=== PATIENT | male | born 1970 | race Caucasian/White ===

== ENCOUNTER 2020-06-05 09:38 | Outpatient (REF) | payer BC, SELFPAY ==
[2020-06-05 11:26] LABS: Eosinophils Absolute Auto 0.2 X10*3/uL (0.0-0.4); Eosinophils Percent Auto 7.6 % (0-4); Hematocrit 42.2 % (42-52); Hemoglobin 13.2 g/dl (14.0-18.0); Imm Gran Abs Auto 0.01 X10*3/uL (0.00-0.03); Imm Gran Pct Auto 0.3 % (0.0-0.4); Lymphocytes Absolute Auto 0.5 X10*3/uL (1.2-4.9); Lymphocytes Percent Auto 17.2 % (20-40); MANUAL DIFF FLAG SCAN; Mean Corpuscular HGB Conc 31.3 g/dl (31.0-36.0); Mean Corpuscular Hemoglobin 25.8 pg (27.0-33.0); Mean Corpuscular Volume 82.4 fL (80-98); Mean Platelet Volume 10.1 fL (9.4-12.4); Monocytes Absolute Auto 0.1 X10*3/uL (0.1-1.2); Monocytes Percent Auto 2.4 % (2-11); Neutrophils Absolute Auto 2.1 X10*3/uL (2.0-8.3); Neutrophils Percent Auto 71.5 % (45-73); Platelet Count 239 X10*3/uL (160-400); Red Blood Count 5.12 X10*6/uL (4.60-5.80); Red Cell Distribution Width 15.5 % (11.0-16.0); SCAN SMEAR FLAG 1; White Blood Count 2.9 X10*3/uL (4.8-10.8)
[2020-06-05 11:34] LABS: Fibrinogen 328 MG/DL (259-690); Prothrombin Time 12.3 SEC (10.8-13.0)
[2020-06-05 11:37] LABS: Partial Thromboplastin Time 32.2 SEC (24.1-38.0)
[2020-06-05 12:17] LABS: Iron 79 mcg/dL (45-160); Percent Iron Saturation 21 % (15-50); Total Iron Binding Capacity 376 mcg/dL (228-428); Unsaturated Iron Binding 297 ug/dL
[2020-06-05 12:34] LABS: Ferritin 14 ng/mL (20-250)
[2020-06-05 12:36] LABS: SLIDE REVIEW VERIFIED
== END 2020-06-05 09:39 | disposition home or self-care (01) ==
LOC: HO.LAB 09:38
PROVIDERS: PCP Family Medicine; Visit Provider Physician Assistant Medical
DX: R79.0 Abnormal level of blood mineral (principal); T14.8XXA Other injury of unspecified body region, initial encounter
CPT/HCPCS: 36415; 82728; 83540; 85025; 85384; 85610; 85730

== ENCOUNTER 2020-07-05 07:33 | Outpatient (REF) | payer BC, SELFPAY ==
[2020-07-05 08:14] LABS: COVID-19 Test Negative (Negative)
== END 2020-07-05 07:34 | disposition home or self-care (01) ==
LOC: HO.LAB 07:33
PROVIDERS: Visit Provider Internal Medicine
DX: Z20.828 Contact with and (suspected) exposure to other viral communicable diseases (principal)
CPT/HCPCS: 87635; C9803

== ENCOUNTER 2020-07-08 07:27 | Outpatient (REF) | payer BC, SELFPAY ==
[2020-07-08 09:41] LABS: Basophils Percent Auto 1.1 % (0-2); Eosinophils Absolute Auto 0.2 X10*3/uL (0.0-0.4); Eosinophils Percent Auto 7.1 % (0-4); Hematocrit 45.1 % (42-52); Hemoglobin 14.4 g/dl (14.0-18.0); Imm Gran Abs Auto 0.02 X10*3/uL (0.00-0.03); Imm Gran Pct Auto 0.7 % (0.0-0.4); Lymphocytes Absolute Auto 0.5 X10*3/uL (1.2-4.9); Lymphocytes Percent Auto 18.1 % (20-40); MANUAL DIFF FLAG SCAN; Mean Corpuscular HGB Conc 31.9 g/dl (31.0-36.0); Mean Corpuscular Hemoglobin 26.5 pg (27.0-33.0); Mean Corpuscular Volume 82.9 fL (80-98); Mean Platelet Volume 9.7 fL (9.4-12.4); Monocytes Absolute Auto 0.1 X10*3/uL (0.1-1.2); Monocytes Percent Auto 1.8 % (2-11); Neutrophils Percent Auto 71.2 % (45-73); Platelet Count 268 X10*3/uL (160-400); Red Blood Count 5.44 X10*6/uL (4.60-5.80); Red Cell Distribution Width 16.1 % (11.0-16.0); SCAN SMEAR FLAG 1; White Blood Count 2.8 X10*3/uL (4.8-10.8)
[2020-07-08 10:16] LABS: SLIDE REVIEW VERIFIED
[2020-07-08 10:41] LABS: Folate 9.1 ng/mL (> or = 4.0); Vitamin B12 228 pg/mL (200-900)
[2020-07-09 15:32] LABS: Transglutaminase IgA 1 U/mL
[2020-07-09 16:17] LABS: LLE Markers 23
[2020-07-09 17:26] LABS: IgA 331 mg/dL (47-310); IgG 1812 mg/dL (600-1640); IgM 67 mg/dL (50-300)
[2020-07-10 15:03] LABS: LLE Report Type SEE ABOVE; LLE Sample Description SEE ABOVE
[2020-07-12 20:27] LABS: Methylmalonic Acid 170 nmol/L (87-318)
== END 2020-07-08 07:28 | disposition home or self-care (01) ==
LOC: HO.LAB 07:27
PROVIDERS: PCP Family Medicine; Visit Provider Physician Assistant Medical
DX: D72.810 Lymphocytopenia (principal)
CPT/HCPCS: 36415; 82607; 82746; 82784; 83516; 83921; 85025

== ENCOUNTER 2020-07-24 07:15 | Day surgery (SDC) | payer BC, SELFPAY ==
--- NOTE | 2020-07-23 09:46 | HO.ANESPROP2 ---
Documented by User: Anika White 07/23/20 10:03 HPI - Anesthesia Eval Consult details Narrative: 49yo M for Colonoscopy COUNTS INCLUDE 234 BEDS AT THE [facility] Past Medical History Medical History Anemia Asthma Atypical chest pain CAD (coronary artery disease) Concussion Elevated cholesterol Fracture of knee region GERD (gastroesophageal reflux disease) Hx of upper gastrointestinal hemorrhage Myocardial infarction Surgical History Surgical History History of esophagogastroduodenoscopy (EGD) Hx of heart artery stent Social History Social History Alcohol intake: current Alcohol intake frequency: a few times a week Alcohol type: beer Smoking Status: Never smoker Second Hand Smoke Exposure: No Use of substances other than those prescribed or required for medical reasons: No Advance Directives: No Advance Directives Information Provided: No Advance Directives on File: No Meds Allergies Allergy/AdvReac Type Severity Reaction Status Date / Time No Known Allergies Allergy Verified 07/16/20 14:36 shellfish Allergy Unknown Unknown Uncoded 07/16/20 14:36 Home Medications Medication Instructions Recorded Confirmed Type albuterol sulfate 2 puff INHALATION Q6H PRN 07/16/20 07/24/20 History aspirin [Aspir-Low] 81 mg PO DAILY 07/16/20 07/24/20 History atorvastatin 10 mg PO DAILY 07/16/20 07/16/20 History budesonide 3 mg PO DAILY 07/16/20 07/16/20 History ezetimibe 10 mg PO DAILY 07/16/20 07/16/20 History ferrous sulfate 325 mg PO DAILY 07/16/20 07/16/20 History fluticasone propion-salmeterol 1 inh INHALATION BID 07/16/20 07/24/20 History [Advair Diskus] ibuprofen [Advil] 200 mg PO Q6H PRN 07/16/20 07/16/20 History metoprolol succinate 25 mg PO DAILY 07/16/20 07/24/20 History nitroglycerin 0.3 mg SUBLINGUAL Q5M PRN 07/16/20 07/16/20 History omeprazole 20 mg PO BID 07/16/20 07/24/20 History Exam Exam Date and Time: July 23, 2020 0946 Pertinent Lab Results Pertinent Lab Results: Laboratory Tests 07/08/20 08:03 WBC 2.8 L Hgb 14.4 Hct 45.1 Plt Count 268 Narrative Narrative: EKG 08/2019: NSR with LBB with PAC ECHO 2018: Nml LV sys and diastolic function, paradox septal motion c/w LBBB, mild posterior mitral leaflet prolapse with mild MR, No pericardial effusion. Assessment and Plan Assessment Anesthesia Assessment: Chart Reviewed Documented by User: Reddy Kennedy 07/24/20 09:10 COUNTS INCLUDE 234 BEDS AT THE [facility] Past Medical History Medical History Anemia Asthma Atypical chest pain CAD (coronary artery disease) Concussion Elevated cholesterol Fracture of knee region GERD (gastroesophageal reflux disease) Hx of upper gastrointestinal hemorrhage Myocardial infarction Surgical History Surgical History History of esophagogastroduodenoscopy (EGD) Hx of heart artery stent Social History Social History Alcohol intake: current Alcohol intake frequency: a few times a week Alcohol type: beer Smoking Status: Never smoker Second Hand Smoke Exposure: No Use of substances other than those prescribed or required for medical reasons: No Advance Directives: No Advance Directives Information Provided: No Advance Directives on File: No Meds Allergies Allergy/AdvReac Type Severity Reaction Status Date / Time No Known Allergies Allergy Verified 07/16/20 14:36 shellfish Allergy Unknown Unknown Uncoded 07/16/20 14:36 Home Medications Medication Instructions Recorded Confirmed Type albuterol sulfate 2 puff INHALATION Q6H PRN 07/16/20 07/24/20 History aspirin [Aspir-Low] 81 mg PO DAILY 07/16/20 07/24/20 History atorvastatin 10 mg PO DAILY 07/16/20 07/16/20 History budesonide 3 mg PO DAILY 07/16/20 07/16/20 History ezetimibe 10 mg PO DAILY 07/16/20 07/16/20 History ferrous sulfate 325 mg PO DAILY 07/16/20 07/16/20 History fluticasone propion-salmeterol 1 inh INHALATION BID 07/16/20 07/24/20 History [Advair Diskus] ibuprofen [Advil] 200 mg PO Q6H PRN 07/16/20 07/16/20 History metoprolol succinate 25 mg PO DAILY 07/16/20 07/24/20 History nitroglycerin 0.3 mg SUBLINGUAL Q5M PRN 07/16/20 07/16/20 History omeprazole 20 mg PO BID 07/16/20 07/24/20 History Exam Airway Mallampati Class: II TM Dist: >3cm Neck ROM: Full Loose/Missing/Broken Teeth: No Heart: [id number] Lungs: cta b/l Assessment and Plan Assessment Anesthesia Assessment: Anesthesia Plan Discussed, PAT Visit and Chart Reviewed Final Anesthetic Review NPO: Yes ASA Class: III Final Preanesthetic Review: No Changes in Pt Med Stat, Meds/Allgs Chart Reviewed, Consent Obtained/Reviewed and Anes Risks/Benef Reviewed Patient Risk: Intermediate Procedure Risk: Low Assessment/Block/Sedation in SS: Assess/Block/Sedation-SS Anesthetic Plan Anesthetic Plan: MAC: Disposition: Standard PACU
[2020-07-23 10:09] VITALS: BMI 25.2
--- NOTE | 2020-07-24 | ECG_ITS ---
Test Reason : PREOP Blood Pressure : / mmHG Vent. Rate : 070 BPM Atrial Rate : 070 BPM P-R Int : 184 ms QRS Dur : 132 ms QT Int : 418 ms P-R-T Axes : 061 -26 063 degrees QTc Int : 451 ms Normal sinus rhythm Left bundle branch block Abnormal ECG When compared with ECG of 06-OCT-2016 09:14, No significant change was found Referred By: Reddy Kennedy Electronically Signed By:GENIA SWEET MD
[2020-07-24 07:51] VITALS: BP 127/85; PULSE 69; RESP 18; TEMP 36.9; O2SAT 98
[2020-07-24] MEDS: Lactated Ringers 1,000 ML 100 ML IVCONT (08:00)
--- NOTE | 2020-07-24 09:11 | ECG_ITS ---
Test Reason : S/P STENT, SD, CP Blood Pressure : / mmHG Vent. Rate : 067 BPM Atrial Rate : 067 BPM P-R Int : 182 ms QRS Dur : 136 ms QT Int : 446 ms P-R-T Axes : 052 -39 069 degrees QTc Int : 471 ms Normal sinus rhythm Left axis deviation Left bundle branch block Abnormal ECG When compared with ECG of 24-JUL-2020 07:48, No significant change was found Referred By: Reddy Kennedy Electronically Signed By:GENIA SWEET MD
[2020-07-24 09:28] VITALS: BP 125/77; PULSE 86; RESP 12; TEMP 37.1; O2SAT 98
--- NOTE | 2020-07-24 09:30 | PM.OP ---
Brief Operative Note Date of Service: 07/24/20 Pre-op diagnosis: Rectal bleeding Post-op diagnosis: other (Colon polyp, Diverticulosis, Internal hemorrhoids) Procedure: Colonoscopy to cecum and TI with snare polypectomy and placement of 2 Resolution clips at 60cm Surgeon: Bowen Hull Anesthesia: MAC Estimated blood loss (mL): 4.0 Pathology: other (A. Polyp at 60cm) Condition: stable Disposition: PACU
[2020-07-24 09:43] VITALS: BP 131/84; PULSE 69; RESP 19; TEMP 37.1; O2SAT 97
--- NOTE | 2020-07-24 10:00 | OP_ITS ---
SURGEON: Bowen Hull MD INDICATIONS: Full consent has been obtained from him for this, including risks of bleeding and perforation. PREOPERATIVE DIAGNOSIS: Rectal bleeding. POSTOPERATIVE DIAGNOSIS: PROCEDURE PERFORMED: Colonoscopy to the cecum and terminal ileum with snare polypectomy, and placement of 2 Resolution clips. ESTIMATED BLOOD LOSS: COMPLICATIONS: ANESTHESIA: Monitored anesthesia care. ASSISTANTS: SPECIMENS: POSTOPERATIVE DIAGNOSES: Rectal bleeding, colon polyp, sigmoid diverticulosis, and small internal hemorrhoids. DESCRIPTION OF PROCEDURE: The patient was placed in the left lateral decubitus position. The digital rectal exam revealed no abnormalities. The Olympus video pediatric colonoscope was entered into the rectum and advanced easily to the cecum. Once in the cecum, I did identify normal-appearing cecal pouch with appendiceal orifice and a normal-appearing ileocecal valve. The terminal ileum was cannulated and appeared normal. Scope was withdrawn back in the colon. The entire cecum and ileocecal valve appeared normal. The scope was slowly withdrawn assessing all mucosal surfaces carefully. Preparation was excellent. At 60 cm was a grossly adenomatous polyp. This was approximately 8 mm in diameter and raised. This was snared and recovered by suction. The polypectomy site did have some slight oozing, but basically stopped on its own. I did place 2 Resolution clips on the polypectomy site given the fact that he has to resume his aspirin later today due to previous placement of a coronary artery stent and previous KS. I did not visualize any other polyps, colitis, or angiodysplasia. There was a mild amount of sigmoid diverticulosis. In the rectum, a scope was retroflexed visualizing minimal internal hemorrhoids, but no other pathology. The rectal mucosa appeared normal. The scope was straightened and withdrawn from the patient. He tolerated the procedure well and was returned to recovery area in stable condition. IMPRESSION: 1. Colon polyp, status post snare polypectomy and placement of 2 Resolution clips. 2. Mild sigmoid diverticulosis. 3. Small internal hemorrhoids. PLAN: The results of the pathology will be checked. I would recommend a repeat colonoscopy in 5 years for further surveillance assuming it is a tubular adenoma. He was advised to resume his aspirin by later today. This has been discussed with his . MD JULITA Torres/RENNY / [id number] [facility]is
--- NOTE | 2020-07-24 11:22 | HO.POSTANES ---
Post Anesthesia Evaluation Post Anesthesia Evaluation Vital Signs: Vital Signs Temp Pulse Resp BP Pulse Ox 07/24/20 09:43 98.8 F 69 19 131/84 97 07/24/20 09:28 98.8 F 86 12 125/77 98 07/24/20 07:51 98.5 F 69 18 127/85 98 Anesthesia: Monitored Mental Status: Awake Pain Control: Satisfactory Nausea/Vomiting: None Hydration: Adequate Anesthesia-Related Issues: No Anes. Related Issues
== END 2020-07-24 10:23 | disposition home or self-care (01) ==
PROVIDERS: PCP Family Medicine; Visit Provider Internal Medicine
PROC: 0DJD8ZZ Inspection of Lower Intestinal Tract, Via Natural or Artificial Opening Endoscopic (ICD-10-PCS; CPT 45378; principal; 2020-07-24 08:30)
DX: K62.5 Hemorrhage of anus and rectum (principal); D64.9 Anemia, unspecified; D12.4 Benign neoplasm of descending colon; K57.30 Diverticulosis of large intestine without perforation or abscess without bleeding; K64.8 Other hemorrhoids; K21.9 Gastro-esophageal reflux disease without esophagitis; J45.909 Unspecified asthma, uncomplicated; I25.10 Atherosclerotic heart disease of native coronary artery without angina pectoris; Z98.61 Coronary angioplasty status; Z79.82 Long term (current) use of aspirin
CPT/HCPCS: 45385; 88305; 93005

== ENCOUNTER 2020-08-29 12:37 | Outpatient (REF) | payer BC, SELFPAY ==
[2020-08-29 13:12] LABS: COVID-19 Test Negative (Negative)
== END 2020-08-29 12:38 | disposition home or self-care (01) ==
LOC: HO.LAB 12:37
PROVIDERS: Visit Provider Internal Medicine
DX: Z20.828 Contact with and (suspected) exposure to other viral communicable diseases (principal)
CPT/HCPCS: 36415; 87635; C9803

== ENCOUNTER 2020-09-02 08:11 | Outpatient (REF) | payer BC, SELFPAY ==
[2020-09-02 08:32] LABS: COVID-19 Test Negative (Negative)
== END 2020-09-02 08:12 | disposition home or self-care (01) ==
LOC: HO.LAB 08:11
PROVIDERS: Visit Provider Internal Medicine
DX: Z20.822 Contact with and (suspected) exposure to COVID-19 (principal)
CPT/HCPCS: 36415; 87635; C9803

== ENCOUNTER → 2020-09-03 08:30 | Outpatient (REF) | payer OTHER, SELFPAY ==
--- NOTE | 2020-09-03 08:30 | CA_ITS ---
Transthoracic Echocardiogram Patient (Last, First, Middle): Jaren Mcneill, Gender: Male Date of : 1970 Age: 50 Procedure Date: 09/03/2020 Procedure Type: Transthoracic Echocardiogram Location: OP Height: 177.8 cm Weight: 86.18 kg BSA: 2.04 m2 Heart Rate: bpm BP: 118 / 56 mmHg Customer Accounts Advisor: MANSI Referring MD: Olivier Enamorado MD Front End Technician: Olivier Enamorado MD Symptoms: I25.10 CAD W/O ANGINA, LBBB Study Quality: Good ECG Rhythm: Sinus Conclusions: - 1. Normal LV systolic and diastolic function 2. Mild mitral valve prolapse with mild mitral regurgitation 3. Normal RV systolic pressure 4. Trivial pericardial effusion near the LV Findings Left Ventricle Normal left ventricular cavity size. There is normal left ventricular wall thickness. The left ventricular systolic function is normal. The visually estimated ejection fraction is between 55-60%. There is paradoxical septal motion consistent with a left bundle branch block. Diastolic function is normal for age. Right Ventricle Normal right ventricular cavity size and systolic function. Atria Both atria are normal in size. There is no evidence of interatrial shunt. Aortic Valve There is no aortic valve stenosis. There is no aortic valve regurgitation. Mitral Valve There is mild posterior mitral leaflet thickening. There is mild posterior mitral leaflet prolapse. There is mild mitral valve regurgitation. There is no mitral valve stenosis. Pulmonic Valve The pulmonic valve was not well visualized. Tricuspid Valve Normal tricuspid valve structure. There is trace tricuspid valve regurgitation. The right ventricular systolic pressure is normal. The right ventricular systolic pressure is 12 mmHg. Normal right atrial pressure. There is no evidence of pulmonary hypertension. Great Vessels All visible segments of the aorta are normal in size. The pulmonary artery was not well visualized. Venous The inferior vena cava is normal in size and collapses greater than 50% with inspiration. Pericardium/Pleural There is a trivial loculated pericardial effusion overlying the left ventricle. Prior Study Comparison No significant change compared to prior study dated: 07/28/2018. Measurements 2D Linear Measurements IVSd: 0.98 0.6-0.9/0.6-1.0 cm LVIDd: 4.69 3.9-5.3/4.2-5.9 cm LVIDd Index: 2.30 2.4-3.2/2.2-3.1 cm/m2 LVIDs: 3.03 2.0-3.6 cm LVPWd: 1.10 0.7-1.1 cm Ao Root: 3.30 2.1-3.5 cm LA Diam: 4.00 2.7-3.8/3.0-4.0 cm LAIDs Index: 1.96 1.5-2.3 cm/m2 LV Mass: 215.13 67-162/88-224 g LV Mass Index: 105.45 43-95/49-115 g/m2 LVOT Diam: 2.30 3.0+(-)1.3 cm 2D Systolic Function EF 4C: 46.70 >55% EF 2C: 42.40 >55% Mitral Valve MV Pk E: 0.69 MV PK A: 0.66 MV Decel Time: 243.00 E/A: 1.10 E'Lateral: 9.38 E'Medial: 7.16 E/E' Med: 9.70 E/E' Lat: 7.40 PHT: 71.00 MVA PHT: 3.10 Decel [place]: 2.85 Aortic Valve AoV Pk Kevon: 1.29 AoV Mn Kevon: 0.91 AoV VTI: 0.30 AoV Pk Grad: 7.00 Aov Mn Grad: 4.00 GILBERT Cont.VTI: 2.85 LVOT LVOT Pk Kevon: 1.04 LVOT Mn Kevon: 0.79 LVOT VTI: 0.21 LVOT Pk Grad: 4.00 LVOT Mn Grad: 3.00 LVOT Diam: 2.30 LVOT Area: 4.15 Diastolic Function MV Pk E: 0.69 MV Pk A: 0.66 E/A: 1.10 E'Medial: 7.16 E/E' Med: 9.70 E' Laterial: 9.38 E/E' Lat: 7.40 Tricuspid Valve TR Pk Kevon: 1.46 TR Pk Grad: 9.00 RA Press: 3.00 RVSP: 12.00 Great Vessels Aorta Ao Root-2D: 3.30 2.0-3.7 cm Ao Asc: 2.70 2.1-3.4 cm Pulmonary Valve PV Pk Kevon: 1.20 Peak PV Grad: 6.00 Updated in Other Vendor System with Status of Final Olivier Enamorado MD electronically signed on 09/04/2020 3:06:38 PM with status of Final
== END ==
LOC: HO.CARD 08:30
PROVIDERS: PCP Family Medicine; Visit Provider Internal Medicine Cardiovascular Disease
DX: I25.10 Atherosclerotic heart disease of native coronary artery without angina pectoris (principal); I34.1 Nonrheumatic mitral (valve) prolapse; I44.7 Left bundle-branch block, unspecified
CPT/HCPCS: 93306

== ENCOUNTER → 2020-09-10 08:25 | Outpatient (BNVA) | payer BC, SELFPAY | PROVIDERS: PCP Family Medicine; Visit Provider Internal Medicine Cardiovascular Disease | DX: I25.10 Atherosclerotic heart disease of native coronary artery without angina pectoris (principal); I34.1 Nonrheumatic mitral (valve) prolapse; I44.7 Left bundle-branch block, unspecified | CPT/HCPCS: 93005; 99212 ==

== ENCOUNTER 2021-01-22 20:13 | Emergency (ER) | payer OTHER, BC, SELFPAY ==
--- NOTE | 2021-01-22 | ECG_ITS ---
Test Reason : CP Blood Pressure : / mmHG Vent. Rate : 073 BPM Atrial Rate : 073 BPM P-R Int : 178 ms QRS Dur : 134 ms QT Int : 404 ms P-R-T Axes : 054 -09 091 degrees QTc Int : 445 ms Normal sinus rhythm Left bundle branch block Abnormal ECG When compared with ECG of 24-JUL-2020 09:44, No significant change was found Referred By: Generic ED Physician Electronically Signed By:Chau Rosas
--- NOTE | ~2021-01-22 | XR_ITS ---
EXAMINATION: XR CHEST CLINICAL INFORMATION: Chest pain COMPARISON: 05/20/2016 TECHNIQUE: Frontal view of the chest was obtained. FINDINGS: No significant abnormality is noted involving the heart, lungs, mediastinum, bony thorax or soft tissues. XR/XR chest 1V IMPRESSION: Unremarkable examination.
[2021-01-22 20:54] VITALS: BP 113/71; PULSE 82; RESP 18; O2SAT 97; BMI 26.5
[2021-01-22 21:58] LABS: Basophils Percent Auto 0.6 % (0-2); Eosinophils Absolute Auto 0.2 X10*3/uL (0.0-0.4); Eosinophils Percent Auto 4.8 % (0-4); Hematocrit 38.8 % (42-52); Hemoglobin 12.8 g/dl (14.0-18.0); Imm Gran Abs Auto 0.02 X10*3/uL (0.00-0.03); Imm Gran Pct Auto 0.6 % (0.0-0.4); Lymphocytes Absolute Auto 0.7 X10*3/uL (1.2-4.9); Lymphocytes Percent Auto 21.9 % (20-40); MANUAL DIFF FLAG SCAN; Mean Corpuscular Hemoglobin 28.4 pg (27.0-33.0); Mean Platelet Volume 8.9 fL (9.4-12.4); Monocytes Absolute Auto 0.1 X10*3/uL (0.1-1.2); Monocytes Percent Auto 2.9 % (2-11); Neutrophils Absolute Auto 2.1 X10*3/uL (2.0-8.3); Neutrophils Percent Auto 69.2 % (45-73); Platelet Count 207 X10*3/uL (160-400); Red Blood Count 4.51 X10*6/uL (4.60-5.80); Red Cell Distribution Width 13.2 % (11.0-16.0); SCAN SMEAR FLAG 1; White Blood Count 3.1 X10*3/uL (4.8-10.8)
[2021-01-22 22:01] LABS: SLIDE REVIEW VERIFIED
[2021-01-22 22:10] LABS: Anion Gap 11 (12-20); Blood Urea Nitrogen 11 mg/dL (9-16); Calcium 8.9 mg/dL (8.4-10.2); Carbon Dioxide 23 mmol/L (22-29); Chloride 109 mmol/L (96-108); Creatinine Clr Calc Pharmacy 99.2; Estimated Glomerular Filt Rate > 60; Glucose Random 97 mg/dL (60-115); Potassium 3.7 mmol/L (3.3-5.1); Sodium 139 mmol/L (135-145)
--- NOTE | 2021-01-22 22:13 | ED.CHESTPAIN ---
HPI - Chest Pain General Chief Complaint: Chest Pain Stated Complaint: Chest pain Time Seen by Provider: 01/22/21 22:13 Source: patient Mode of arrival: ambulatory History of Present Illness HPI narrative: This is a 50-year-old male with significant past medical history of CAD and stent placement with known LBBB who presents with onset of chest pressure at approximately 6:00 p.m. that does not radiate and has not been associated with dizziness, diaphoresis, nausea, and has remained unchanged since onset but patient notes that it does worsen with sitting up and does not changed in character with deep inspiration or with movement. Patient initially tried antacids, however these did not alleviate the chest discomfort. Patient does describe a history of asthma as well and attempted to puffs of albuterol at approximately 7:00 p.m. without resolution of his symptoms. Related Data Home Medications Medication Instructions Recorded Confirmed albuterol sulfate 2 puff INHALATION Q6H PRN 07/16/20 09/10/20 budesonide 3 mg PO DAILY 07/16/20 09/10/20 ferrous sulfate 325 mg PO DAILY 07/16/20 09/10/20 fluticasone propion-salmeterol 1 inh INHALATION BID 07/16/20 09/10/20 [Advair Diskus] ibuprofen [Advil] 200 mg PO Q6H PRN 07/16/20 09/10/20 nitroglycerin 0.3 mg SUBLINGUAL Q5M PRN 07/16/20 09/10/20 omeprazole 20 mg PO BID 07/16/20 09/10/20 Previous Rx's Medication Instructions Recorded aspirin 81 mg tablet,delayed 81 mg PO DAILY 90 Days #90 tab 08/20/20 release atorvastatin 80 mg tablet 80 mg PO DAILY #90 tab 12/16/20 metoprolol succinate 25 mg 25 mg PO DAILY 90 Days #90 tab 12/16/20 tablet,extended release 24 hr ezetimibe 10 mg tablet 10 mg PO DAILY #90 tab 01/16/21 Allergies Allergy/AdvReac Type Severity Reaction Status Date / Time No Known Allergies Allergy Verified 07/16/20 14:36 shellfish Allergy Unknown Unknown Uncoded 07/16/20 14:36 Review of Systems Review of Systems: Pertinent positives and negatives as stated in HPI 10 point review of systems is otherwise negative. PMFSH Past Medical History Source: nursing notes reviewed Medical History Anemia Asthma Atypical chest pain CAD (coronary artery disease) Concussion Elevated cholesterol Fracture of knee region GERD (gastroesophageal reflux disease) Hx of upper gastrointestinal hemorrhage Left bundle branch block Mitral valve prolapse Myocardial infarction Surgical History History of esophagogastroduodenoscopy (EGD) Hx of heart artery stent Social History Social History Alcohol intake: current Alcohol intake frequency: a few times a month Alcohol type: beer Patient Tobacco Use Status: Never used Tobacco Second Hand Smoke Exposure: No Use of substances other than those prescribed or required for medical reasons: No Advance Directives: No Physical Exam Vital Signs: Vital Signs: Last Vital Signs Temp 98.2 F 01/23/21 00:16 Pulse 73 01/23/21 00:16 Resp 19 01/23/21 00:16 BP 125/69 01/23/21 00:16 Pulse Ox 97 01/23/21 00:16 Body Mass Index 26.5 VITAL SIGNS: Reviewed. GENERAL: Well developed, well nourished, in no acute distress. HEAD: Normocephalic/atraumatic EYES: PERRLA, EOMI NOSE: Nares patent bilateral OROPHARYNX: no oral lesions noted, posterior pharynx clear NECK: Supple, no adenopathy LUNGS: Normal breath sounds. No adventitious sounds or accessory muscle use. SpO2<97> CARDIOVASCULAR: Regular rate and rhythm without noted murmurs ABDOMEN: Soft, non-tender, non-distended with bowel sounds. SKIN: Inspection of the skin reveals no rashes NEUROLOGIC: Alert and oriented x 4. Course Course Course Narrative: 50-year-old male with history and clinical presentation and after review of documentation suspect this is recurrent atypical chest pain, however will rule out acute cardiopulmonary concerns. HEART Score:3 Review of all investigations without acute findings and review of high sensitivity troponins as well as EKG without acute changes. There is no evidence of pneumonia and low clinical suspicion of PE. All results and findings were discussed with the patient at bedside. MDM - Chest Pain Lab Data Result diagrams: 01/22/21 21:38 01/22/21 21:38 Labs: Lab Results 01/22/21 01/22/21 01/22/21 Range/Units 21:38 21:38 21:38 WBC 3.1 L (4.8-10.8) X10*3/uL RBC 4.51 L (4.60-5.80) X10*6/uL Hgb 12.8 L (14.0-18.0) g/dl Hct 38.8 L (42-52) % MCV 86.0 (80-98) fL MCH 28.4 (27.0-33.0) pg MCHC 33.0 (31.0-36.0) g/dl RDW 13.2 (11.0-16.0) % Plt Count 207 (160-400) X10*3/uL MPV 8.9 L (9.4-12.4) fL Immature Gran % (Auto) 0.6 H (0.0-0.4) % Neut % (Auto) 69.2 (45-73) % Lymph % (Auto) 21.9 (20-40) % Glasscock % (Auto) 2.9 (2-11) % Eos % (Auto) 4.8 H (0-4) % Baso % (Auto) 0.6 (0-2) % Lymph # (Auto) 0.7 L (1.2-4.9) X10*3/uL Glasscock # (Auto) 0.1 (0.1-1.2) X10*3/uL Eos # (Auto) 0.2 (0.0-0.4) X10*3/uL Baso # (Auto) 0.0 (0.0-0.2) X10*3/uL Abs Immat Gran (auto) 0.02 (0.00-0.03) X10*3/uL Absolute Neuts (auto) 2.1 (2.0-8.3) X10*3/uL Absolute Nucleated RBC 0.000 (0.0-0.012) X10*3/uL Nucleated RBC % (auto) 0.0 (0.0-0.2) /100WBC Smear Tech's Comments VERIFIED Hold Blue Top SEE NOTE Sodium 139 (135-145) mmol/L Potassium 3.7 (3.3-5.1) mmol/L Chloride 109 H (96-108) mmol/L Carbon Dioxide 23 (22-29) mmol/L Anion Gap 11 L (12-20) BUN 11 (9-16) mg/dL Creatinine 0.93 (0.5-1.4) mg/dL Estim Creat Clear Calc 99.2 Estimated GFR > 60 Random Glucose 97 (60-115) mg/dL Calcium 8.9 (8.4-10.2) mg/dL Troponin I High Sens (<3.5-35.0) ng/L 01/22/21 01/23/21 Range/Units 21:38 00:27 WBC (4.8-10.8) X10*3/uL RBC (4.60-5.80) X10*6/uL Hgb (14.0-18.0) g/dl Hct (42-52) % MCV (80-98) fL MCH (27.0-33.0) pg MCHC (31.0-36.0) g/dl RDW (11.0-16.0) % Plt Count (160-400) X10*3/uL MPV (9.4-12.4) fL Immature Gran % (Auto) (0.0-0.4) % Neut % (Auto) (45-73) % Lymph % (Auto) (20-40) % Glasscock % (Auto) (2-11) % Eos % (Auto) (0-4) % Baso % (Auto) (0-2) % Lymph # (Auto) (1.2-4.9) X10*3/uL Glasscock # (Auto) (0.1-1.2) X10*3/uL Eos # (Auto) (0.0-0.4) X10*3/uL Baso # (Auto) (0.0-0.2) X10*3/uL Abs Immat Gran (auto) (0.00-0.03) X10*3/uL Absolute Neuts (auto) (2.0-8.3) X10*3/uL Absolute Nucleated RBC (0.0-0.012) X10*3/uL Nucleated RBC % (auto) (0.0-0.2) /100WBC Smear Tech's Comments Hold Blue Top Sodium (135-145) mmol/L Potassium (3.3-5.1) mmol/L Chloride (96-108) mmol/L Carbon Dioxide (22-29) mmol/L Anion Gap (12-20) BUN (9-16) mg/dL Creatinine (0.5-1.4) mg/dL Estim Creat Clear Calc Estimated GFR Random Glucose (60-115) mg/dL Calcium (8.4-10.2) mg/dL Troponin I High Sens 3.9 < 3.5 (<3.5-35.0) ng/L ECG Data ECG #1: Attestation: I personally reviewed and interpreted this ECG as follows: Prior ECG tracings: available for review (07/24/2020 no acute changes on comparison) Interpretation: Normal sinus rhythm, LBBB, HR-73, DE/QTC within normal limits Discharge Plan Discharge Clinical Impression: Atypical chest pain Patient Disposition: Home, Self-Care Instructions: Chest Pain (ED), Chest Wall Pain (ED) Additional Instructions: 1. Resume all home medications as prescribed. 2. Please follow-up with your primary care provider to further discuss additional evaluation as indicated. Please follow-up within the next 1-2 days. Return to the ER for any acute worsening of your symptoms. Prescriptions: No Action aspirin 81 mg tablet,delayed release (DR/EC) 81 mg PO DAILY 90 Days Qty: 90 RF: 3 metoprolol succinate 25 mg tablet extended release 24 hr 25 mg PO DAILY 90 Days Qty: 90 RF: 1 atorvastatin 80 mg tablet 80 mg PO DAILY Qty: 90 RF: 1 ezetimibe 10 mg tablet 10 mg PO DAILY Qty: 90 RF: 3 nitroglycerin 0.3 mg Tablet, Sublingual 0.3 mg SUBLINGUAL Q5M PRN (Reason: Chest Pain) RF: 0 ferrous sulfate 325 mg (65 mg iron) Tablet 325 mg PO DAILY RF: 0 ibuprofen [Advil] 200 mg Tablet 200 mg PO Q6H PRN (Reason: Pain) RF: 0 omeprazole 20 mg Capsule,Delayed Release(Dr/Ec) 20 mg PO BID RF: 0 budesonide 3 mg Capsule,Delayed,Extend.Release 3 mg PO DAILY RF: 0 fluticasone propion-salmeterol [Advair Diskus] 100-50 mcg/dose Blister With Device 1 inh INHALATION BID RF: 0 albuterol sulfate 90 mcg/actuation Hfa Aerosol Inhaler 2 puff INHALATION Q6H PRN (Reason: Shortness Of Breath) RF: 0 Referrals: Bar King MD [Primary Care Provider] - 2 days (Re-evaluation after seen in the ER for chest pain and no significant findings with high sensitivity troponin, EKG, chest x-ray.)
[2021-01-22 22:16] LABS: Troponin-I High Sensitivity 3.9 ng/L (<3.5-35.0)
[2021-01-22 22:25] VITALS: BP 117/75; PULSE 70; RESP 17; TEMP 37; O2SAT 97
[2021-01-23 00:16] VITALS: BP 125/69; PULSE 73; RESP 19; TEMP 36.8; O2SAT 97
[2021-01-23 01:00] LABS: Troponin-I High Sensitivity < 3.5 ng/L (<3.5-35.0)
== END 2021-01-23 01:39 | disposition home or self-care (01) ==
PROVIDERS: Emergency Provider Student in an Organized Health Care Education/Training Program; PCP Family Medicine
DX: R07.89 Other chest pain (principal); J45.909 Unspecified asthma, uncomplicated; E78.00 Pure hypercholesterolemia, unspecified; K21.9 Gastro-esophageal reflux disease without esophagitis; I44.7 Left bundle-branch block, unspecified; I25.2 Old myocardial infarction; Z79.82 Long term (current) use of aspirin; Z79.02 Long term (current) use of antithrombotics/antiplatelets; Z79.899 Other long term (current) drug therapy
CPT/HCPCS: 36415; 71045; 80048; 84484; 85025; 93005; 99284; 99285

== ENCOUNTER → 2021-01-30 08:29 | Outpatient (REF) | payer OTHER, BC, SELFPAY ==
--- NOTE | ~2021-01-30 | NM_ITS ---
Myocardial perfusion study Indication: Chest discomfort with prior CAD and stenting with left bundle branch block to evaluate for myocardial ischemia Technique: The patient was brought in for a Lexiscan perfusion study on 01/30/2021. Patient performed low-level exercise and was injected 0.4 mg of Lexiscan intravenously. Within a minute of injection, 30 mCi of sestamibi was given intravenously. Images were obtained using the SPECT gamma camera interlaced with the gating device. Images were obtained in supine position. Resting perfusion study was performed on 01/31/2021. Patient was administered 30 mCi of sestamibi intravenously at rest. Images were then obtained in supine position. Images obtained with and without CT attenuation. Total DLP 86 mGy-cm. Images were processed with the software and compared side to side in short axis, horizontal long axis and vertical long axis views. Findings: The stress perfusion study showed nonattenuated images show mildly reduced uptake in the basal and mid anterior and moderately reduced uptake in the distal anterior apex and inferoapical wall of the LV myocardium. Is also mildly reduced uptake in the septum of the LV myocardium. Attenuation corrected images suggesting abnormal with severely reduced uptake in the anterior and absent uptake in the apex of the LV myocardium is also severely reduced uptake in the inferoapical wall of the LV myocardium. Is also severely reduced uptake in the anteroseptal and anterolateral wall of the LV myocardium.. The gated study shows normal LV systolic function with calculated LVEF of 66%. LV cavity is mildly dilated size. The gated study shows normal wall thickening and contraction of segments. Resting study shows nonattenuated images show improved uptake in the basal and mid anterior as well as marginally improved uptake in the distal anterior and apex as well as inferoapical wall of the LV myocardium. Is also improvement in the septal. Attenuation corrected images show significant improvement in all segments of LV myocardium. Gating at rest reveals normal systolic wall motion with ejection fraction at 66%. The findings are consistent with suggestive LAD territory ischemia,. Corrected images. NM/NM reagan perf SPECT rest & str Impression: 1. Myocardial perfusion imaging study shows LAD territory ischemia 2. Gated LVEF is 66% 3. Transient ischemic dilatation not present EKG is nondiagnostic for ischemia
--- NOTE | 2021-01-30 08:31 | CA_ITS ---
Acquisition Time: 2021-01-30 08:36:35 Total Exercise Time: 00:02:00 Test Indications: Chest Pain Medications: ALBUTEROL ASA ATORVASTATIN BUDESONIDE METOPROLOL OMEPRAZOLE Protocol: LEXISCAN Max HR: 116 BPM 67% of Pred: 171 BPM Max BP: 124/084 mmHG Max Work Load: 1.0 METS Pharmacological stress test with Lexiscan injection, while sitting, without anginal symptoms, without arrythmia, with normotensive response to injection, with nondiagnostic EKG for ischemia. Nuclear images pending. Test reviewed with Dr Enamorado. Referred By: Olivier Enamorado Overread By: MILENA BECK
== END ==
LOC: HO.CARD 08:29
PROVIDERS: Visit Provider Internal Medicine Cardiovascular Disease
DX: R07.89 Other chest pain (principal); I44.7 Left bundle-branch block, unspecified
CPT/HCPCS: 78452; 93017; A9500; J0280; J2785

== ENCOUNTER 2021-02-03 12:49 | Outpatient (REF) | payer BC, SELFPAY ==
[2021-02-03 15:06] LABS: Hematocrit 43.3 % (42-52); Mean Corpuscular HGB Conc 32.3 g/dl (31.0-36.0); Mean Corpuscular Hemoglobin 28.2 pg (27.0-33.0); Mean Corpuscular Volume 87.1 fL (80-98); Mean Platelet Volume 9.5 fL (9.4-12.4); Platelet Count 243 X10*3/uL (160-400); Red Blood Count 4.97 X10*6/uL (4.60-5.80); Red Cell Distribution Width 13.4 % (11.0-16.0); White Blood Count 4.3 X10*3/uL (4.8-10.8)
[2021-02-03 15:16] LABS: INTERNATIONAL NORM RATIO 1.1 (0.9-1.1); Prothrombin Time 13.4 SEC (10.8-13.0)
[2021-02-03 15:28] LABS: Anion Gap 15 (12-20); Blood Urea Nitrogen 13 mg/dL (9-16); Calcium 9.2 mg/dL (8.4-10.2); Carbon Dioxide 24 mmol/L (22-29); Chloride 108 mmol/L (96-108); Cholesterol 95 mg/dL; Estimated Glomerular Filt Rate > 60; Glucose Random 99 mg/dL (60-115); HDL Cholesterol 43 mg/dL; LDL Cholesterol Calculated 40 mg/dl; Potassium 4.6 mmol/L (3.3-5.1); Sodium 142 mmol/L (135-145); Triglycerides 61 mg/dL
== END 2021-02-03 12:50 | disposition home or self-care (01) ==
LOC: HO.LAB 12:49
PROVIDERS: PCP Internal Medicine; Referring Provider Internal Medicine; Visit Provider Internal Medicine Cardiovascular Disease
DX: R07.89 Other chest pain (principal); I25.10 Atherosclerotic heart disease of native coronary artery without angina pectoris
CPT/HCPCS: 36415; 80048; 80061; 85027; 85610

== ENCOUNTER → 2021-02-10 10:33 | Outpatient (BNVA) | payer OTHER, BC, SELFPAY | PROVIDERS: PCP Internal Medicine; Visit Provider Internal Medicine Cardiovascular Disease ==

== ENCOUNTER 2021-02-20 08:20 | Outpatient (REF) | payer BC, SELFPAY ==
[2021-02-20 10:08] LABS: MANUAL DIFF FLAG NO
[2021-02-20 10:18] LABS: Eosinophils Absolute Auto 0.2 X10*3/uL (0.0-0.4); Eosinophils Percent Auto 6.5 % (0-4); Hematocrit 42.9 % (42-52); Hemoglobin 13.7 g/dl (14.0-18.0); Imm Gran Abs Auto 0.01 X10*3/uL (0.00-0.03); Imm Gran Pct Auto 0.3 % (0.0-0.4); Lymphocytes Absolute Auto 0.5 X10*3/uL (1.2-4.9); Lymphocytes Percent Auto 16.7 % (20-40); Mean Corpuscular HGB Conc 31.9 g/dl (31.0-36.0); Mean Corpuscular Volume 87.7 fL (80-98); Mean Platelet Volume 9.1 fL (9.4-12.4); Monocytes Absolute Auto 0.1 X10*3/uL (0.1-1.2); Monocytes Percent Auto 3.4 % (2-11); Neutrophils Absolute Auto 2.1 X10*3/uL (2.0-8.3); Neutrophils Percent Auto 72.1 % (45-73); Platelet Count 230 X10*3/uL (160-400); Red Blood Count 4.89 X10*6/uL (4.60-5.80); Red Cell Distribution Width 13.9 % (11.0-16.0); White Blood Count 2.9 X10*3/uL (4.8-10.8)
[2021-02-20 10:29] LABS: D Dimer 545 NG/ML
[2021-02-20 10:37] LABS: Anion Gap 10 (12-20); Blood Urea Nitrogen 13 mg/dL (9-16); Calcium 9.1 mg/dL (8.4-10.2); Carbon Dioxide 26 mmol/L (22-29); Chloride 109 mmol/L (96-108); Estimated Glomerular Filt Rate > 60; Glucose Random 96 mg/dL (60-115); Potassium 4.5 mmol/L (3.3-5.1); Sodium 140 mmol/L (135-145)
[2021-02-20 11:23] LABS: Erythrocyte Sedimentation Rate 9 MM/HR (0-15)
== END 2021-02-20 08:21 | disposition home or self-care (01) ==
LOC: HO.LAB 08:20
PROVIDERS: PCP Family Medicine; Visit Provider Hospitalist
DX: R07.89 Other chest pain (principal); R06.02 Shortness of breath; J45.40 Moderate persistent asthma, uncomplicated; K21.00 Gastro-esophageal reflux disease with esophagitis, without bleeding
CPT/HCPCS: 36415; 80048; 82785; 85025; 85379; 85652; 86003

== ENCOUNTER 2021-02-26 14:53 | Outpatient (REF) | payer BC, SELFPAY | END 2021-02-26 14:54 | disposition home or self-care (01) | LOC: HO.CT 14:53 | PROVIDERS: PCP Family Medicine; Visit Provider Hospitalist | DX: Z13.89 Encounter for screening for other disorder (principal) ==

== ENCOUNTER → 2021-02-27 14:11 | Outpatient (BNVA) | payer OTHER, BC, SELFPAY | PROVIDERS: PCP Internal Medicine; Visit Provider Internal Medicine Cardiovascular Disease | DX: R07.89 Other chest pain (principal); R94.39 Abnormal result of other cardiovascular function study; I25.10 Atherosclerotic heart disease of native coronary artery without angina pectoris ==

== ENCOUNTER 2021-03-03 07:50 | Outpatient (REF) | payer BC, SELFPAY ==
--- NOTE | 2021-03-03 | PFT_ITS ---
FLOWS: FEV1 of 70% of predicted at 2.78 L. FVC 73% of predicted at 3.74 L. FEV1 to FVC ratio of 0.74. Positive bronchodilator response. LUNG VOLUMES: Total lung capacity 77% of predicted at 5.40 L. Residual volume 84% of predicted at 1.72 L. Slow vital capacity 74% of predicted at 3.69 L. Expiratory reserve volume 75% of predicted at 1.15 L. Diffusion capacity is mildly decreased, diffusion capacity corrects to normal after adjustment for alveolar ventilation. IMPRESSION: Combined borderline obstructive and mild restrictive ventilatory defect with positive bronchodilator response. Irwin Chapa MD AP/MODL / [id number]
== END 2021-03-03 07:51 | disposition home or self-care (01) ==
LOC: HO.RESP 07:50
PROVIDERS: PCP Family Medicine; Visit Provider Hospitalist
DX: R06.02 Shortness of breath (principal); J45.40 Moderate persistent asthma, uncomplicated
CPT/HCPCS: 94060; 94727; 94729

== ENCOUNTER 2021-03-04 09:25 | Outpatient (REF) | payer BC, SELFPAY ==
--- NOTE | ~2021-03-04 | CT_ITS ---
EXAMINATION: CT ANGIOGRAM OF THE CHEST WITH AND WITHOUT CONTRAST (CT PULMONARY ANGIOGRAM FOR PE) CLINICAL INFORMATION: Reason for Exam R07.89 - Other chest pain COMPARISON: None TECHNIQUE: Prior to contrast administration, noncontrast localization images were obtained. Subsequently, multidetector volumetric imaging was performed from the thoracic inlet to below the diaphragms following the administration of 80 mL Omnipaque 350 intravenous contrast. No contrast reaction reported Sagittal, coronal, and MIP oblique sagittal reformatted images were obtained on the CT workstation, uploaded to PACS, and reviewed. This CT examination was performed using dose optimization techniques as appropriate, variously including the following: *Automated exposure control *Adjustment of mA and/or kV according to patient size (this includes techniques or standardized protocols for targeted exams where dose is matched to indication/reason for exam; i.e. extremities or head) *Use of iterative reconstruction technique Total exam dose-length product 113 mGy-cm FINDINGS: QUALITY OF STUDY/CONTRAST BOLUS: Satisfactory. PULMONARY ARTERIES: No central or segmental pulmonary emboli. THORACIC AORTA: No aneurysm or dissection. LUNG: No focal consolidation, nodules or masses. There is minimal left upper lobe paramediastinal' reticular stranding in, a cyst likely chronic changes. Mild centrilobular emphysema changes are visualized predominantly in upper lobes. PLEURA: No pleural effusion or pneumothorax. MEDIASTINUM: Normal heart size. No pericardial effusion. No hilar or mediastinal lymphadenopathy. No evidence of septal bowing or right heart strain. There is mild thickening of the distal esophagus with air-fluid level likely a small hiatal hernia or reflux esophagitis. CHEST WALL/AXILLA: No axillary or internal mammary lymphadenopathy. OSSEOUS STRUCTURES: No acute or suspicious osseous abnormality. UPPER ABDOMEN: Visualized liver, spleen, pancreas and bilateral adrenal glands unremarkable. No reflux of contrast into the hepatic veins to suggest elevated right heart pressures. CT/CT angio chest PE protocol IMPRESSION: No evidence of PE. No evidence of aortic dissection or aneurysm. No acute lung parenchymal process seen. VTE: negative
[2021-03-04] MEDS: iohexoL 350 MG/ML 100 ML INFUS..BTL 85 ML IV (10:04)
== END 2021-03-04 09:26 | disposition home or self-care (01) ==
LOC: HO.CT 09:25
PROVIDERS: Visit Provider Hospitalist
DX: R07.89 Other chest pain (principal); R78.89 Finding of other specified substances, not normally found in blood
CPT/HCPCS: 71275; Q9967

== ENCOUNTER → 2021-04-01 08:23 | Outpatient (BNVA) | payer BC, SELFPAY | PROVIDERS: PCP Internal Medicine; Visit Provider Hospitalist | DX: R06.02 Shortness of breath (principal); R07.89 Other chest pain ==

== ENCOUNTER 2021-08-29 06:29 | Outpatient (REF) | payer BC, SELFPAY ==
[2021-08-29 08:07] LABS: COVID-19 Test Positive (Negative)
== END 2021-08-29 06:30 | disposition home or self-care (01) ==
LOC: HO.LAB 06:29
PROVIDERS: Visit Provider Internal Medicine
DX: Z20.822 Contact with and (suspected) exposure to COVID-19 (principal)
CPT/HCPCS: 87635; C9803

== ENCOUNTER 2021-09-25 12:02 | Outpatient (REF) | payer BC, SELFPAY ==
[2021-09-26 18:17] LABS: Transglutaminase Ab IgG <1.0 U/mL; Transglutaminase IgA <1.0 U/mL
[2021-09-26 18:26] LABS: Immunoglobulin A 314 mg/dL (47-310)
[2021-09-27 12:05] LABS: Gliadin Deamidated IgA Ab 1.4 U/mL; Gliadin Deamidated IgG Ab <1.0 U/mL
[2021-09-30 21:12] LABS: Endomysial IgA Antibody Negative (Negative)
== END 2021-09-25 12:03 | disposition home or self-care (01) ==
LOC: HO.10HDL 12:02
PROVIDERS: Visit Provider Internal Medicine
DX: D50.9 Iron deficiency anemia, unspecified (principal); Z13.0 Encounter for screening for diseases of the blood and blood-forming organs and certain disorders involving the immune mechanism
CPT/HCPCS: 36415; 82784; 86231; 86258; 86364

== ENCOUNTER → 2021-10-03 08:39 | Outpatient (BNVA) | payer BC, SELFPAY | PROVIDERS: PCP Internal Medicine; Visit Provider Internal Medicine Cardiovascular Disease | DX: I25.10 Atherosclerotic heart disease of native coronary artery without angina pectoris (principal); I44.7 Left bundle-branch block, unspecified; I34.1 Nonrheumatic mitral (valve) prolapse | CPT/HCPCS: 93005 ==

== ENCOUNTER → 2022-08-12 08:20 | Outpatient (REF) | payer BC, SELFPAY ==
--- NOTE | 2022-08-12 08:22 | CA_ITS ---
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 Normal LV systolic and diastolic function 2. Mild posterior mitral valve leaflet prolapse with mild mitral regurgitation 3. Normal RV systolic pressure 4. No gross pericardial effusion Findings Left Ventricle Normal left ventricular size, thickness, and systolic function. The visually estimated ejection fraction is between 55-60%. Spectral Doppler is indicative of a normal filling pattern. Right Ventricle Normal right ventricular cavity size and systolic function. Atria Both atria are normal in size. There is no evidence of interatrial shunt. Aortic Valve Normal aortic valve structure and function. There is no aortic valve stenosis. There is no aortic valve regurgitation. Mitral Valve The mitral valve appears myxomatous. There is mild anterior and posterior mitral leaflet thickening. There is mild posterior mitral leaflet prolapse. There is mild mitral valve regurgitation. Pulmonic Valve The pulmonic valve is likely normal. There is trace pulmonic valve regurgitation. Tricuspid Valve Normal tricuspid valve structure. There is trace tricuspid valve regurgitation. The right ventricular systolic pressure is normal. The right ventricular systolic pressure is 26 mmHg. Normal right atrial pressure. There is no evidence of pulmonary hypertension. Great Vessels All visible segments of the aorta are normal in size. The pulmonary artery was not well visualized. Venous The inferior vena cava is normal in size and collapses greater than 50% with inspiration. Pericardium/Pleural There is no evidence of pericardial effusion. Prior Study Comparison No significant change compared to prior study dated: 09/03/2020. Measurements 2D Linear Measurements IVSd: 0.96 0.6-0.9/0.6-1.0 cm LVIDd: 4.69 3.9-5.3/4.2-5.9 cm LVIDd Index: 2.30 2.4-3.2/2.2-3.1 cm/m2 LVIDs: 3.27 2.0-3.6 cm LVPWd: 0.94 0.7-1.1 cm LA Diam: 3.70 2.7-3.8/3.0-4.0 cm LAIDs Index: 1.81 1.5-2.3 cm/m2 LV Mass: 190.89 67-162/88-224 g LV Mass Index: 93.57 43-95/49-115 g/m2 LVOT Diam: 2.20 3.0+(-)1.3 cm 2D Systolic Function EF 4C: 51.20 >55% EF 2C: 56.70 >55% Mitral Valve MV Pk E: 0.68 MV PK A: 0.57 MV Decel Time: 188.00 E/A: 1.20 E'Lateral: 10.70 E'Medial: 8.49 E/E' Med: 8.00 E/E' Lat: 6.40 PHT: 55.00 MVA PHT: 4.00 Decel Juncos: 3.62 Aortic Valve AoV Pk Kevon: 1.31 AoV Mn Kevon: 0.89 AoV VTI: 0.26 AoV Pk Grad: 7.00 Aov Mn Grad: 4.00 GILBERT Cont.VTI: 3.26 LVOT LVOT Pk Kevon: 1.07 LVOT Mn Kevon: 0.73 LVOT VTI: 0.22 LVOT Pk Grad: 5.00 LVOT Mn Grad: 2.00 LVOT Diam: 2.20 LVOT Area: 3.80 Diastolic Function MV Pk E: 0.68 MV Pk A: 0.57 E/A: 1.20 E'Medial: 8.49 E/E' Med: 8.00 E' Laterial: 10.70 E/E' Lat: 6.40 Right Ventricle TAPSE (mm): 22.40 TVS' Kevon: 11.40 Tricuspid Valve TR Pk Kevon: 2.42 TR Pk Grad: 23.00 RA Press: 3.00 RVSP: 26.00 Great Vessels Aorta Sinus of Valsalva: 3.34 2.0-3.[address] Ridge: 2.49 1.7-3.4 cm Ao Asc: 2.90 2.1-3.4 cm Updated in Other Vendor System with Status of Final Olivier Enamorado MD electronically signed on 08/13/2022 8:58:45 AM with status of Final
== END ==
LOC: HO.CARD 08:20
PROVIDERS: Visit Provider Internal Medicine Cardiovascular Disease
DX: I44.7 Left bundle-branch block, unspecified (principal)
CPT/HCPCS: 93306

== ENCOUNTER → 2022-10-05 08:22 | Outpatient (BNVA) | payer OTHER, BC, SELFPAY | PROVIDERS: PCP Internal Medicine; Visit Provider Internal Medicine Cardiovascular Disease | DX: I25.10 Atherosclerotic heart disease of native coronary artery without angina pectoris (principal); I34.1 Nonrheumatic mitral (valve) prolapse; I44.7 Left bundle-branch block, unspecified | CPT/HCPCS: 93005; 99212 ==

== ENCOUNTER 2023-09-15 10:19 | Outpatient (AMB) | payer OTHER, SELFPAY ==
--- NOTE | 2023-09-15 10:30 | A.OFFVIS_ITS ---
Intake Vital Signs 09/15/23 10:31 Height 5 ft 10 in Weight 182 lb 15.739 oz BMI 26.3 BP 120/78 Blood Pressure Location Lt brachial Position Sitting Pulse 86 Intake Visit Reasons: 1 year fu Intake Note: 1 year follow-up with ekg feeling good Shadowgraph Scale Operator Required: No Allergies No Known Allergies Allergy (Verified 10/03/21 08:40) shellfish Allergy (Severe, Uncoded 04/01/21 08:34) Vomiting Medication List - Last Reconciled 09/15/23 by Olivier Enamorado MD albuterol sulfate 90 mcg/actuation 2 puffs inhalation Q6H PRN aspirin 81 mg PO DAILY 90 days atorvastatin 80 mg PO DAILY budesonide ER 3 mg PO DAILY ihzeixnbxy-pupfxhtn-sdapzuhxcf 160-9-4.8 mcg/actuation (Breztri Aerosphere) 2 inhalations inhalation BID 30 days diphenhydramine HCl (Benadryl) 25 mg PO ONCE ezetimibe 10 mg PO DAILY montelukast (Singulair) 10 mg PO BEDTIME 30 days nitroglycerin 0.3 mg sublingual Q5M PRN omeprazole 20 mg PO BID trazodone 50 mg PO BEDTIME PRN HPI HPI Comments History of Present Illness Details Jaren comes for follow-up. He has been doing well from cardiac perspective. Denies any exertional chest pain or shortness of breath. He denies any orthopnea, PND, leg edema. No prolonged palpitation irregular heartbeat or lightheadedness or syncope. Takes all his medications. No recent lipid panel. [facility] Medical History (Updated 09/15/23 @ 12:39 by Olivier Enamorado MD) Blood D-dimer assay positive Abnormal nuclear stress test Mitral valve prolapse Left bundle branch block Atypical chest pain Fracture of knee region Concussion Hx of upper gastrointestinal hemorrhage Elevated cholesterol GERD (gastroesophageal reflux disease) Anemia Asthma Myocardial infarction CAD (coronary artery disease) Surgical History Hx of heart artery stent History of esophagogastroduodenoscopy (EGD) Social History Alcohol intake: current Alcohol intake frequency: a few times a month Alcohol type: beer Patient Tobacco Use Status: Never used Tobacco Second Hand Smoke Exposure: No Review of Systems Const Denies chills, Denies fatigue, Denies fever(s), Denies frequent falls, Denies weakness, Denies weight gain and Denies weight loss ENT Denies dizziness Card Denies chest pain, Denies leg edema, Denies lightheadedness, Denies palpitations, Denies dyspnea, Denies dyspnea on exertion, Denies orthopnea and Denies other (loss of consciousness) Resp Denies cough, Denies dyspnea and Denies dyspnea on exertion GI Denies hematochezia and Denies change in stool character Musc Denies abnormal gait, Denies muscle weakness, Denies numbness, Denies radiating pain into limb and Denies tingling Neuro Denies abnormal gait, Denies dizziness, Denies frequent falls, Denies numbness, Denies tingling and Denies weakness Endo Denies fatigue and Denies palpitations Physical Exam Vital Signs: Last Vital Signs Pulse 86 09/15/23 10:31 BP 120/78 09/15/23 10:31 BMI result Body Mass Index 26.3 Const General: cooperative, comfortable, alert and awake Nutritional Appearance: thin Orientation/consciousness: patient oriented x3 Resp Effort & Inspection: normal respiratory effort Auscultation: clear to auscultation bilaterally Cardio Jugular venous distension: no JVD Palpation: normal PMI Rate: regular rate Rhythm: regular rhythm Heart sounds: S1 normal heart sound present and S2 normal heart sound present Neuro General: patient oriented x3 and no focal motor deficits Extrem General: Yes no clubbing, cyanosis or edema Office Procedures EKG Details: EKG shows normal sinus rhythm with left bundle-branch block, unchanged from before [id number], Complete Assessment & Plan Assessment & Plan (1) CAD (coronary artery disease): Comment: CLAUDIA to proximal LAD 2016 Code(s): I25.10 - Atherosclerotic heart disease of [place] coronary artery without angina pectoris Plan: CAD status post drug-eluting stent to the LAD about 8 years ago. No recurrent symptoms suggestive angina. Cardiac catheterization 2 years ago showed nonobstructive disease with patent stent. Continue aggressive medical therapy. Lifelong aspirin therapy is recommended. Continue high-intensity statin therapy along with ezetimibe therapy to target goal LDL closer to 50 mg/dL. Advised lipid panel and CRP in near future. Blood pressure is currently well optimized encouraged to continue to participate in physical activity as tolerated. Advised to call me with any new symptoms. (2) Left bundle branch block: Code(s): I44.7 - Left bundle-branch block, unspecified Plan: Left bundle-branch block without any symptoms. Has remained stable. No interventions required. Echocardiogram every couple of years to evaluate for LV systolic function which can happen in 16% of the patients. No specific therapy recommended. (3) Mitral valve prolapse: Code(s): I34.1 - Nonrheumatic mitral (valve) prolapse Plan: Mild mitral valve prolapse with mild mitral regurgitation. No interventions required. Continue low-dose aspirin therapy. No indication for SBE prophylaxis. Follow-up echocardiogram in 1 year's time. Will follow up in the clinic in 1 year's time, sooner p.r.n.. Thank you for allowing me to partake in his care Orders: Orders Lipid Panel Today I25.10 - Atherosclerotic heart disease of [place] coronary artery without angina pectoris CRP High Sensitivity Today I25.10 - Atherosclerotic heart disease of [place] coronary artery without angina pectoris CA echo transthoracic complete 50 Weeks I34.1 - Nonrheumatic mitral (valve) prolapse Coding Level of Care Code Est Pt Level 4 (98917) Diagnoses CAD (coronary artery disease) I25.10 Left bundle branch block I44.7 Mitral valve prolapse I34.1 CPT Codes EKG - CPT: 08735-[id number], Complete ([id number])
[2023-09-15 10:31] VITALS: BP 120/78; PULSE 86; BMI 26.3
== END 2023-09-15 10:54 | disposition home or self-care (01) ==
PROVIDERS: PCP Internal Medicine; Visit Provider Internal Medicine Cardiovascular Disease
DX: I25.10 Atherosclerotic heart disease of native coronary artery without angina pectoris (principal); I44.7 Left bundle-branch block, unspecified; I34.1 Nonrheumatic mitral (valve) prolapse
CPT/HCPCS: 93010; 99214

== ENCOUNTER → 2023-09-15 10:19 | Outpatient (BNVA) | payer OTHER, SELFPAY | PROVIDERS: PCP Internal Medicine; Visit Provider Internal Medicine Cardiovascular Disease | DX: I25.10 Atherosclerotic heart disease of native coronary artery without angina pectoris (principal); I44.7 Left bundle-branch block, unspecified; I34.1 Nonrheumatic mitral (valve) prolapse; Z79.899 Other long term (current) drug therapy | CPT/HCPCS: 93005; 99212 ==

== ENCOUNTER 2023-09-16 08:02 | Outpatient (REF) | payer OTHER, SELFPAY ==
[2023-09-16 09:25] LABS: Cholesterol 88 mg/dL (<200); HDL Cholesterol 46 mg/dL (>40); LDL Cholesterol Calculated 30 mg/dL (<100); Triglycerides 63 mg/dL (<150)
[2023-09-17 13:59] LABS: CRP High Sensitivity <0.3 mg/L
== END 2023-09-16 08:03 | disposition home or self-care (01) ==
LOC: HO.LAB 08:02
PROVIDERS: Visit Provider Internal Medicine Cardiovascular Disease
DX: I25.10 Atherosclerotic heart disease of native coronary artery without angina pectoris (principal)
CPT/HCPCS: 36415; 80061; 86141

== ENCOUNTER 2023-12-22 09:03 | Outpatient (AMB) | payer BC, SELFPAY ==
[2023-12-22 09:05] VITALS: BP 134/76; PULSE 86; O2SAT 98; BMI 26.1
--- NOTE | 2023-12-22 09:05 | A.OFFPC_ITS ---
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 No Known Allergies Allergy (Verified 12/22/23 09:07) shellfish Allergy (Severe, Uncoded 12/22/23 09:07) Vomiting Medication List - Last Reconciled 12/22/23 by Wai Hollis MD albuterol sulfate 90 mcg/actuation 2 puffs inhalation Q6H PRN aspirin 81 mg PO DAILY atorvastatin 80 mg PO DAILY budesonide DR-ER 3 mg PO DAILY ukkkcjalfm-cfepucei-zzkzxqgolw 160-9-4.8 mcg/actuation (Breztri Aerosphere) 2 inhalations inhalation BID 30 days diphenhydramine HCl (Benadryl) 25 mg PO ONCE ezetimibe 10 mg PO DAILY metoprolol succinate ER 25 mg PO DAILY nitroglycerin 0.3 mg sublingual Q5M PRN nitroglycerin 0.4 mg sublingual Q5M PRN omeprazole 20 mg PO BID Tobacco use date assessed: 12/22/23 Dental Screening Dental Screen Date: 12/22/23 Did you have a dental visit in the last 12 months?: Yes Did you have a dental problem in the last 6 months where you did not have access to dental care?: No Was dental information given to patient?: Patient has dentist 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 Review of the notes in 2020 was seen by Pulmonary diagnosis of asthma and GERD was started on Breztri, Singulair and was advised considering allergy shots. There was a concern on results of a CT scan of esophageal thickening. Patient also has seen Cardiology in September 2021 CAD with drug-eluting stent proximal LAD 2015 on aspirin on metoprolol. Echocardiogram in July 2022 Normal LV systolic and diastolic function 2. Mild posterior mitral valve leaflet p rolapse with mild mitral regurgitation 3. Normal RV systolic pressure 4. No gross pericardial effusion Last note from Cardiology was August 2023 cardiac catheterization 2 years ago showed nonobstructive disease patent stent target LDL 50 PFSH Medical History (Updated 12/22/23 @ 09:29 by Wai Hollis MD) Blood D-dimer assay positive Abnormal nuclear stress test Mitral valve prolapse Left bundle branch block Atypical chest pain Fracture of knee region Concussion Hx of upper gastrointestinal hemorrhage Elevated cholesterol GERD (gastroesophageal reflux disease) Anemia Asthma Myocardial infarction CAD (coronary artery disease) Surgical History Hx of heart artery stent History of esophagogastroduodenoscopy (EGD) Family History (Updated 12/22/23 @ 09:15 by Idalia Morgan [facility]) Mother No problems noted. Father Diabetes Sister No problems noted. Brother Throat cancer Son Pacemaker Social History (Updated 12/22/23 @ 09:43 by Wai Hollis MD) Housing: House Alcohol intake: current Alcohol intake frequency: a few times a month Alcohol type: beer Comment: 2-3 x a week 2-3 beers Patient Tobacco Use Status: Never used Tobacco Tobacco use type: Cigarette e-Cigarette/Vaping Use: Never Used Second Hand Smoke Exposure: No Current occupational status: employed Cognitive needs: No Hearing needs: No Vision needs: Yes Questionnaire PHQ-9 Over the last 2 weeks, how often have you been bothered by any of the following problems? 1. Little interest or pleasure in doing things: not at all 2. Feeling down, depressed, or hopeless: not at all 3. Trouble falling or staying asleep, or sleeping too much: not at all 4. Feeling tired or having little energy: not at all 5. Poor appetite or overeating: not at all 6. Feeling bad about yourself - or that you are a failure or have let yourself or your family down: not at all 7. Trouble concentrating on things, such as reading the newspaper or watching television: not at all 8. Moving or speaking so slowly that other people could have noticed. Or the opposite - being so fidgety or restless that you have been moving around a lot more than usual: not at all 9. Thoughts that you would be better off or of hurting yourself in some way: not at all Total score: 0 Depression Screening Interpretation: Negative Depression Screening Done: Yes Source: Developed by Drs. Bowen Jurado, Cyndie Lester, Imtiaz Silva and colleagues, with an educational deep from [employer]. Thrive Questionnaire Date Thrive assessed: 12/22/23 I am a: Patient What is your living situation today?: I have a steady place to live Within the past 12 months, did the food you bought not last and you didn't have the money to get more?: Never true Within the past 12 months, did you worry whether your food would run out before you got money to buy more?: Never true Do you have trouble paying for medicines?: No Do you have trouble getting transportation to medical appointments?: No Do you have trouble paying your heating and electricity bill?: No Do you have trouble taking care of your child, family member or friend?: No Do you have trouble with day-to-day activities such as bathing, preparing meals, shopping, managing finances, etc.?: No Are you currently unemployed and looking for a job?: No Are you interested in more education?: No Currently or been in a relationship where the following occur: no concerns reported THRIVE Score: 0 AUDIT C Alcohol Use Questionnaire (AUDIT-C) 1. How often do you have a drink containing alcohol?: Monthly or less 2. How many drinks containing alcohol do you have on a typical day when you are drinking?: 1 or 2 3. How often do you have six or more drinks on one occasion?: Never Total Score: 1 JAEL-7 AMB Questionnaire JAEL-7 Date JAEL - 7 assessed: 12/22/23 Feeling nervous, anxious, or on edge: 0 = Not at all Not being able to stop or control worryin = Not at all Worrying too much about different things: 0 = Not at all Trouble relaxin = Not at all Being so restless that it is hard to sit still: 0 = Not at all Becoming easily annoyed or irritable: 0 = Not at all Feeling afraid as if something awful might happen: 0 = Not at all Total JAEL-7 score (0-4 normal; 5-9 mild; 10-14 moderate; 15-21 severe): 0 Source: Developed by Drs. Bowen Jurado, Cyndie Lester, Imtiaz Silva and colleagues, with an educational deep from [employer]. Physical exam (Primary Care) Vital Signs: Last Vital Signs Pulse 86 12/22/23 09:05 BP 134/76 12/22/23 09:05 Pulse Ox 98 12/22/23 09:05 Oxygen Delivery Method Room Air 12/22/23 09:05 BMI result Body Mass Index 26.1 Tobacco/Smoking Status: Tobacco use Status Tobacco use date assessed 12/22/23 12/22/23 09:16 Patient Tobacco Use Status Never used Tobacco 12/22/23 09:06 Tobacco use type Cigarette 12/22/23 09:16 e-Cigarette/Vaping Use Never Used 12/22/23 09:16 PHQ-9: PHQ-9 Score PHQ-9: Total score 0 12/22/23 09:16 Depression Screening Interpretation: Negative Thrive Assessment: Date of Thrive Assessment Date Thrive assessed 12/22/23 12/22/23 09:16 Currently or been in a relationship where the following occur: no concerns reported Const General: alert; No acute distress Eyes Conjunctivae: conjunctivae normal Resp Auscultation: clear to auscultation bilaterally Cardio Rate: regular rate Rhythm: regular rhythm GI Inspection: Yes normal to inspection Extrem General: Yes normal to inspection and No edema Assessment and Plan Assessment & Plan (1) Eosinophilic esophagitis: Code(s): K20.0 - Eosinophilic esophagitis Plan: Patient has been placed on budesonide under gastroenterology (2) Hiatal hernia: Code(s): K44.9 - Diaphragmatic hernia without obstruction or gangrene Plan: Avoid the foods that causes that usually spicy foods, tomato products, juices, coffee, soda and foods that your sensitive to. After eating do not lie down, allow 3-4 hours before in lie down. And keep the head of bed above 30 degrees to avoid the acid from going up. (3) Esophageal stricture: Code(s): K22.2 - Esophageal obstruction Plan: Patient follows up with Gastroenterology and has had multiple EGDs. (4) CAD (coronary artery disease): Comment: [place] to proximal LAD 2015 Code(s): I25.10 - Atherosclerotic heart disease of [place] coronary artery without angina pectoris Plan: Control the cholesterol, weight, blood pressure continue with aspirin 81 mg once a day (5) Asthma: Comment: Moderate persistent Code(s): J45.909 - Unspecified asthma, uncomplicated Qualifiers: Asthma severity: moderate Asthma persistence: persistent Asthma complication type: uncomplicated Qualified Code(s): J45.40 - Moderate persistent asthma, uncomplicated Plan: Continue with albuterol and Breztri and montelukast (6) Elevated cholesterol: Code(s): E78.00 - Pure hypercholesterolemia, unspecified Plan: Avoid fried foods, chicken skin, eggs, butter margarine, pastries and meat. Be it pork or beef they have a lot of cholesterol LDL goal of 50 and triglyceride of less than 150 presently on Zetia and atorvastatin 80 mg once a day Orders: Orders Complete Blood Count Auto Diff Today I25.10 - Atherosclerotic heart disease of [place] coronary artery without angina pectoris Free T4 (Free Thyroxine) Today I25.10 - Atherosclerotic heart disease of [place] coronary artery without angina pectoris Prostate Specific Antigen Scr Today I25.10 - Atherosclerotic heart disease of [place] coronary artery without angina pectoris Comprehensive Met. Panel Today I25.10 - Atherosclerotic heart disease of [place] coronary artery without angina pectoris Thyroid Stimulating Hormone Today I25.10 - Atherosclerotic heart disease of [place] coronary artery without angina pectoris Vitamin B12 and Folate Today I25.10 - Atherosclerotic heart disease of [place] coronary artery without angina pectoris Lipid Panel Today E78.00 - Pure hypercholesterolemia, unspecified, I25.10 - Atherosclerotic heart disease of [place] coronary artery without angina pectoris Medications: Refilled orkdypkcxq-bwackdzb-msijjbytcx 160-9-4.8 mcg/actuation (Breztri Aerosphere) 2 inhalations inhalation BID 30 days 10.7 grams 11RF Coding Level of Care Code New Pt Level 4 (14728) Diagnoses Eosinophilic esophagitis K20.0 Hiatal hernia K44.9 Esophageal stricture K22.2 CAD (coronary artery disease) I25.10 Moderate persistent asthma without complication J45.40 Asthma severity: moderate Asthma persistence: persistent Asthma complication type: uncomplicated Elevated cholesterol E78.00
== END 2023-12-22 09:58 | disposition home or self-care (01) ==
PROVIDERS: PCP Internal Medicine; Visit Provider Internal Medicine
DX: K20.0 Eosinophilic esophagitis (principal); K44.9 Diaphragmatic hernia without obstruction or gangrene; K22.2 Esophageal obstruction; I25.10 Atherosclerotic heart disease of native coronary artery without angina pectoris; J45.40 Moderate persistent asthma, uncomplicated; E78.00 Pure hypercholesterolemia, unspecified
CPT/HCPCS: 99204

== ENCOUNTER 2023-12-23 07:36 | Outpatient (REF) | payer BC, SELFPAY ==
[2023-12-23 07:52] LABS: MANUAL DIFF FLAG NO
[2023-12-23 08:23] LABS: Eosinophils Absolute Auto 0.2 X10*3/uL (0.0-0.4); Eosinophils Percent Auto 7.1 % (0-4); Hematocrit 44.4 % (42.0-52.0); Hemoglobin 14.2 g/dl (14.0-18.0); Imm Gran Abs Auto 0.01 X10*3/uL (0.00-0.03); Imm Gran Pct Auto 0.3 % (0.0-0.4); Lymphocytes Absolute Auto 0.6 X10*3/uL (1.2-4.9); Lymphocytes Percent Auto 20.9 % (20-40); Mean Corpuscular Hemoglobin 26.8 pg (27.0-33.0); Mean Corpuscular Volume 83.9 fL (80.0-98.0); Mean Platelet Volume 9.2 fL (9.4-12.4); Monocytes Absolute Auto 0.1 X10*3/uL (0.1-1.2); Neutrophils Percent Auto 67.7 % (45-73); Platelet Count 286 X10*3/uL (160-400); Red Blood Count 5.29 X10*6/uL (4.60-5.80); Red Cell Distribution Width 14.2 % (11.0-16.0)
[2023-12-23 09:08] LABS: Thyroid Stimulating Hormone 1.85 uIU/mL (0.32-4.0)
[2023-12-23 09:14] LABS: Free T4 (Free Thyroxine) 0.93 ng/dL (0.71-1.85)
[2023-12-23 09:20] LABS: Alanine Aminotransferase 33 U/L (0-40); Alkaline Phosphatase 61 U/L (39-117); Anion Gap 13 (12-20); Aspartate Amino Transferase 29 U/L (5-37); Bilirubin Total 0.4 mg/dL (0.0-1.0); Blood Urea Nitrogen 12 mg/dL (9-16); Carbon Dioxide 24 mmol/L (22-29); Chloride 109 mmol/L (96-108); Cholesterol 88 mg/dL (<200); Estimated Glomerular Filt Rate > 60; Glucose Random 100 mg/dL (60-115); HDL Cholesterol 39 mg/dL (>40); LDL Cholesterol Calculated 36 mg/dL (<100); Potassium 4.3 mmol/L (3.3-5.1); Sodium 142 mmol/L (135-145); Total Protein 7.9 g/dL (6.5-8.0); Triglycerides 66 mg/dL (<150)
[2023-12-23 09:56] LABS: Folate 15.7 ng/mL (> or = 4.0); Prostate Specific Antigen Scr 0.67 ng/mL (<0.05-4.0); Vitamin B12 496 pg/mL (200-900)
[2023-12-24 22:08] LABS: CRP High Sensitivity 0.9 mg/L
== END 2023-12-23 07:37 | disposition home or self-care (01) ==
LOC: HO.LAB 07:36
PROVIDERS: Internal Medicine Cardiovascular Disease; Visit Provider Internal Medicine
DX: I25.10 Atherosclerotic heart disease of native coronary artery without angina pectoris (principal); E78.00 Pure hypercholesterolemia, unspecified; Z12.5 Encounter for screening for malignant neoplasm of prostate
CPT/HCPCS: 36415; 80053; 80061; 82607; 82746; 84153; 84439; 84443; 85025; 86141

== ENCOUNTER 2024-04-03 06:15 | Outpatient (REF) | payer BC, SELFPAY ==
[2024-04-03 06:48] LABS: MANUAL DIFF FLAG NO
[2024-04-03 06:57] LABS: Basophils Percent Auto 0.8 % (0-2); Eosinophils Absolute Auto 0.3 X10*3/uL (0.0-0.4); Eosinophils Percent Auto 6.8 % (0-4); Hematocrit 42.2 % (42.0-52.0); Hemoglobin 13.8 g/dl (14.0-18.0); Imm Gran Abs Auto 0.03 X10*3/uL (0.00-0.03); Imm Gran Pct Auto 0.8 % (0.0-0.4); Lymphocytes Absolute Auto 0.7 X10*3/uL (1.2-4.9); Lymphocytes Percent Auto 20.2 % (20-40); Mean Corpuscular HGB Conc 32.7 g/dl (31.0-36.0); Mean Corpuscular Hemoglobin 27.8 pg (27.0-33.0); Mean Corpuscular Volume 85.1 fL (80.0-98.0); Mean Platelet Volume 9.4 fL (9.4-12.4); Monocytes Absolute Auto 0.1 X10*3/uL (0.1-1.2); Monocytes Percent Auto 3.6 % (2-11); Neutrophils Absolute Auto 2.5 x10*3/uL (2.0-8.3); Neutrophils Percent Auto 67.8 % (45-73); Platelet Count 241 X10*3/uL (160-400); Red Blood Count 4.96 X10*6/uL (4.60-5.80); Red Cell Distribution Width 14.6 % (11.0-16.0); White Blood Count 3.7 X10*3/uL (4.8-10.8)
[2024-04-03 07:13] LABS: Cholesterol 109 mg/dL (<200); HDL Cholesterol 48 mg/dL (>40); LDL Cholesterol Calculated 42 mg/dL (<100); Triglycerides 96 mg/dL (<150)
== END 2024-04-03 06:16 | disposition home or self-care (01) ==
LOC: HO.LAB 06:15
PROVIDERS: Absent Provider Internal Medicine; PCP Internal Medicine; Visit Provider Internal Medicine
DX: K62.5 Hemorrhage of anus and rectum (principal); E78.00 Pure hypercholesterolemia, unspecified; I25.10 Atherosclerotic heart disease of native coronary artery without angina pectoris
CPT/HCPCS: 36415; 80061; 85025

== ENCOUNTER 2024-05-23 08:56 | Outpatient (AMB) | payer BC, SELFPAY ==
[2024-05-23 09:01] VITALS: BP 122/78; PULSE 117; O2SAT 98; BMI 27.0
--- NOTE | 2024-05-23 09:01 | MHC.PC.OV ---
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 Allergies No Known Allergies Allergy (Verified 05/23/24 09:01) shellfish Allergy (Severe, Uncoded 05/23/24 09:01) Vomiting Medication List - Last Reconciled 05/23/24 by Wai Hollis MD albuterol sulfate 90 mcg/actuation 2 puffs inhalation Q6H PRN aspirin 81 mg PO DAILY atorvastatin 80 mg PO DAILY budesonide DR-ER 3 mg PO DAILY ylrybnvogh-yphcssbh-hzdzlkrzxh 160-9-4.8 mcg/actuation (Breztri Aerosphere) 2 inhalations inhalation BID 30 days ezetimibe 10 mg PO DAILY metoprolol succinate ER 25 mg PO DAILY multivitamin (One-A-Day Essential tablet) 1 tab PO DAILY nitroglycerin 0.4 mg sublingual Q5M PRN omeprazole 20 mg PO BID trazodone 50 mg PO DAILY Tobacco use date assessed: 05/23/24 Dental Screening Dental Screen Date: 05/23/24 Did you have a dental visit in the last 12 months?: Yes Did you have a dental problem in the last 6 months where you did not have access to dental care?: No Was dental information given to patient?: Patient has dentist HPI Annual PE HPI Details 53-year-old overweight male with a history of eosinophilic esophagitis hiatal hernia esophageal stricture coronary artery disease asthma hypercholesterolemia coming in for physical exam last seen in 01/10/2024. Last colonoscopy was 2019. bilateral knee pain 7 months , ? hx of fracture L knee. occ nausea. [facility] Medical History (Updated 05/23/24 @ 19:13 by Wai Hollis MD) Blood D-dimer assay positive Abnormal nuclear stress test Mitral valve prolapse Left bundle branch block Atypical chest pain Fracture of knee region Concussion Hx of upper gastrointestinal hemorrhage Elevated cholesterol GERD (gastroesophageal reflux disease) Anemia Asthma Myocardial infarction CAD (coronary artery disease) Surgical History Hx of heart artery stent History of esophagogastroduodenoscopy (EGD) Family History (Updated 12/22/23 @ 09:15 by Idalia Morgan CMA) Mother No problems noted. Father Diabetes Sister No problems noted. Brother Throat cancer Son Pacemaker Social History (Updated 12/22/23 @ 09:43 by Wai Hollis MD) Housing: House Alcohol intake: current Alcohol intake frequency: a few times a month Alcohol type: beer Comment: 2-3 x a week 2-3 beers Patient Tobacco Use Status: Never used Tobacco Tobacco use type: Cigarette e-Cigarette/Vaping Use: Never Used Second Hand Smoke Exposure: No Current occupational status: employed Cognitive needs: No Hearing needs: No Vision needs: Yes Questionnaire PHQ-9 Over the last 2 weeks, how often have you been bothered by any of the following problems? 1. Little interest or pleasure in doing things: not at all 2. Feeling down, depressed, or hopeless: not at all 3. Trouble falling or staying asleep, or sleeping too much: not at all 4. Feeling tired or having little energy: not at all 5. Poor appetite or overeating: not at all 6. Feeling bad about yourself - or that you are a failure or have let yourself or your family down: not at all 7. Trouble concentrating on things, such as reading the newspaper or watching television: not at all 8. Moving or speaking so slowly that other people could have noticed. Or the opposite - being so fidgety or restless that you have been moving around a lot more than usual: not at all 9. Thoughts that you would be better off or of hurting yourself in some way: not at all Total score: 0 Depression Screening Interpretation: Negative Depression Screening Done: Yes 93513 - PHQ-9 Billing: Yes Source: Developed by Drs. Bowen Jurado, Cyndie Lester, Imtiaz Silva and colleagues, with an educational edep from [employer]. Thrive Questionnaire Date Thrive assessed: 05/21/24 I am a: Patient What is your living situation today?: I have a steady place to live Within the past 12 months, did the food you bought not last and you didn't have the money to get more?: Never true Within the past 12 months, did you worry whether your food would run out before you got money to buy more?: Never true Do you have trouble paying for medicines?: No Do you have trouble getting transportation to medical appointments?: No Do you have trouble paying your heating and electricity bill?: No Do you have trouble taking care of your child, family member or friend?: No Do you have trouble with day-to-day activities such as bathing, preparing meals, shopping, managing finances, etc.?: No Are you currently unemployed and looking for a job?: No Are you interested in more education?: No Please select the resources that you would like help with: None Currently or been in a relationship where the following occur: No concerns reported THRIVE Score: 0 AUDIT C Alcohol Use Questionnaire (AUDIT-C) 1. How often do you have a drink containing alcohol?: 2-3 times a week 2. How many drinks containing alcohol do you have on a typical day when you are drinking?: 1 or 2 3. How often do you have six or more drinks on one occasion?: Less than monthly Total Score: 4 JAEL-7 AMB Questionnaire JAEL-7 Date JAEL - 7 assessed: 05/23/24 Feeling nervous, anxious, or on edge: 0 = Not at all Not being able to stop or control worryin = Not at all Worrying too much about different things: 0 = Not at all Trouble relaxin = Not at all Being so restless that it is hard to sit still: 0 = Not at all Becoming easily annoyed or irritable: 0 = Not at all Feeling afraid as if something awful might happen: 0 = Not at all Total JAEL-7 score (0-4 normal; 5-9 mild; 10-14 moderate; 15-21 severe): 0 Source: Developed by Drs. Bowen Jurado, Cyndie Lester, Imtiaz Silva and colleagues, with an educational deep from [employer]. JAEL-7 Assessment Billing JAEL-7 Assessment Tool: JAEL-7 Assessment 98850 Review of Systems Const Denies poor appetite and Denies weakness Eyes Denies no additional complaints ENT Reports Normal hearing present, Denies dizziness, Denies nasal congestion, Denies tinnitus and Denies sore throat Card Denies chest pain, Denies syncope, Denies rapid heart rate and Denies dyspnea Resp Denies cough and Denies dyspnea GI Denies change in stool character, Reports constipation, Denies diarrhea, Denies nausea and Denies vomiting Denies dysuria and Denies urinary frequency Neuro Reports Normal hearing present, Denies confusion, Denies dizziness, Denies syncope and Denies weakness Psych Denies confusion Physical exam (Primary Care) Vital Signs: Last Vital Signs Pulse 74 05/23/24 09:27 BP 122/78 05/23/24 09:01 Pulse Ox 98 05/23/24 09:01 Oxygen Delivery Method Room Air 05/23/24 09:01 BMI result Body Mass Index 27.0 Tobacco/Smoking Status: Tobacco use Status Tobacco use date assessed 05/23/24 05/23/24 09:02 Patient Tobacco Use Status Never used Tobacco 05/23/24 09:02 Tobacco use type Cigarette 05/23/24 09:02 e-Cigarette/Vaping Use Never Used 05/23/24 09:02 PHQ-9: PHQ-9 Score PHQ-9: Total score 0 05/23/24 19:08 Depression Screening Interpretation: Negative Thrive Assessment: Date of Thrive Assessment Date Thrive assessed 05/21/24 05/23/24 09:02 Currently or been in a relationship where the following occur: No concerns reported Const General: No confusion Orientation/consciousness: No confusion HENMT Head: Yes normocephalic Ears: external ears normal and TM's normal bilaterally Face and sinus: Yes normal facial exam Mouth: moist mucous membranes Throat: Yes tonsils normal Eyes Conjunctivae: conjunctivae normal Pupils: Equal, round and reactive pupils present and Pupil accommodation reflex normal Direct Ophthalmoscopy: normal light reflex Neck Neck: No lymphadenopathy Thyroid: Thyroid normal Chest Chest palpation & inspection: normal inspection of the chest Resp Effort & Inspection: normal respiratory effort and no audible wheezes Auscultation: clear to auscultation bilaterally, no crackles, no wheezes and lung sounds not diminished Cardio Rate: regular rate Rhythm: regular rhythm Heart sounds: Murmur heart sound present Peripheral pulses: radial pulses present and dorsalis pedis present GI Other: guaiac negative prostate N Palpation (GI): no masses Auscultation: normal bowel sounds and normoactive bowel sounds Male General Exam: Yes normal external exam Skin General skin exam: no rashes or lesions noted Rashes: no rashes Neuro General: No confusion Cranial nerves: Yes Equal, round and reactive pupils present and Yes Normal hearing present Cognition (Neuro): normal cognition Gait exam (Neuro): Normal gait present Motor exam (neuro): 5/5 motor strength present throughout Deep tendon reflexes (DTR's): Right brachioradialis reflex intensity grade: 2+, Left brachioradialis reflex intensity grade: 2+, Right patellar reflex intensity grade: 2+ and Left patellar reflex intensity grade: 2+ Extrem General: No edema Coding Level of Care Code Est Pt Prev Care 40-64y(52548) Diagnoses Annual physical exam Z00.00 Coronary artery disease involving [place] coronary artery of [place] heart without angina pectoris I25.10 Associated angina: without angina Coronary Disease-Associated Artery/Lesion type: [place] artery [place] vs. transplanted heart: [place] heart Gastroesophageal reflux disease with esophagitis without hemorrhage K21.00 Esophagitis bleeding: without hemorrhage Esophagitis presence: with esophagitis Moderate persistent asthma without complication J45.40 Asthma complication type: uncomplicated Asthma persistence: persistent Asthma severity: moderate Elevated cholesterol E78.00 Acute pain of both knees M25.561; M25.562 Chronicity: acute Impaired fasting blood sugar R73.01 Additional Codes JAEL-7 Assessment Billing - JAEL-7 Assessment Tool: JAEL-7 Assessment 14538 ([id number]) Assessment & Plan Assessment & Plan (1) Annual physical exam: Code(s): Z00.00 - Encounter for general adult medical examination without abnormal findings Category: Medical Plan: Patient is advised to eat healthy, keep well hydrated, keep active and have adequate sleep. (2) CAD (coronary artery disease): Comment: [place] to proximal LAD 2015 Code(s): I25.10 - Atherosclerotic heart disease of [place] coronary artery without angina pectoris Category: Medical Qualifiers: Associated angina: without angina Coronary Disease-Associated Artery/Lesion type: [place] artery [place] vs. transplanted heart: [place] heart Qualified Code(s): I25.10 - Atherosclerotic heart disease of [place] coronary artery without angina pectoris Plan: Control the cholesterol, weight, blood pressure continue with aspirin 81 mg once a day (3) GERD (gastroesophageal reflux disease): Code(s): K21.9 - Gastro-esophageal reflux disease without esophagitis Category: Medical Qualifiers: Esophagitis bleeding: without hemorrhage Esophagitis presence: with esophagitis Qualified Code(s): K21.00 - Gastro-esophageal reflux disease with esophagitis, without bleeding Plan: Avoid the foods that causes that usually spicy foods, tomato products, juices, coffee, soda and foods that your sensitive to. After eating do not lie down, allow 3-4 hours before in lie down. And keep the head of bed above 30 degrees to avoid the acid from going up. (4) Asthma: Comment: Moderate persistent Code(s): J45.909 - Unspecified asthma, uncomplicated Category: Medical Qualifiers: Asthma complication type: uncomplicated Asthma persistence: persistent Asthma severity: moderate Qualified Code(s): J45.40 - Moderate persistent asthma, uncomplicated Plan: Continue with albuterol inhaler as needed and placed on breztri (5) Elevated cholesterol: Code(s): E78.00 - Pure hypercholesterolemia, unspecified Category: Medical Plan: Avoid fried foods, chicken skin, eggs, butter margarine, pastries and meat. Be it pork or beef they have a lot of cholesterol LDL goal of less than 70 and triglyceride of less than 150 on Zetia only (6) Knee pain, bilateral: Code(s): M25.561 - Pain in right knee; M25.562 - Pain in left knee Category: Medical Qualifiers: Chronicity: acute Qualified Code(s): M25.561 - Pain in right knee; M25.562 - Pain in left knee Plan: X-ray requested (7) Impaired fasting blood sugar: Code(s): R73.01 - Impaired fasting glucose Category: Medical Plan: Decrease the amount of carbohydrate intake, pasta, bread, rice and potatoes are all sugar and that is aside from all the sweet stuff, remember that fruits are good but they are Sweet also. Orders: Orders XR knee standing BI Today M25.561 - Pain in right knee, M25.562 - Pain in left knee Complete Blood Count Auto Diff 6 Months R73.01 - Impaired fasting glucose Comprehensive Met. Panel 6 Months R73.01 - Impaired fasting glucose Free T4 (Free Thyroxine) 6 Months R73.01 - Impaired fasting glucose Lipid Panel 6 Months E78.00 - Pure hypercholesterolemia, unspecified, R73.01 - Impaired fasting glucose Ferritin 6 Months R73.01 - Impaired fasting glucose Hemoglobin A1c 6 Months R73.01 - Impaired fasting glucose Thyroid Stimulating Hormone 6 Months R73.01 - Impaired fasting glucose Vitamin B12 and Folate 6 Months R73.01 - Impaired fasting glucose Reticulocyte Count 6 Months R73.01 - Impaired fasting glucose IRON PROFILE 6 Months R73.01 - Impaired fasting glucose Medications: New albuterol sulfate 90 mcg/actuation 2 puffs inhalation Q6H PRN 8.5 grams 0RF Shortness Of Breath J45.40 - Moderate persistent asthma, uncomplicated trazodone 50 mg PO DAILY 90 tabs 0RF
[2024-05-23 09:27] VITALS: PULSE 74
== END 2024-05-23 09:57 | disposition home or self-care (01) ==
PROVIDERS: PCP Internal Medicine; Visit Provider Internal Medicine
DX: Z00.00 Encounter for general adult medical examination without abnormal findings (principal); I25.10 Atherosclerotic heart disease of native coronary artery without angina pectoris; K21.00 Gastro-esophageal reflux disease with esophagitis, without bleeding; J45.40 Moderate persistent asthma, uncomplicated; E78.00 Pure hypercholesterolemia, unspecified; M25.561 Pain in right knee; M25.562 Pain in left knee; R73.01 Impaired fasting glucose

== ENCOUNTER → 2024-05-23 08:56 | Outpatient (BNVA) | payer BC, SELFPAY | PROVIDERS: PCP Internal Medicine; Visit Provider Internal Medicine | DX: Z00.01 Encounter for general adult medical examination with abnormal findings (principal); M25.561 Pain in right knee; M25.562 Pain in left knee; I25.10 Atherosclerotic heart disease of native coronary artery without angina pectoris; K21.00 Gastro-esophageal reflux disease with esophagitis, without bleeding; J45.40 Moderate persistent asthma, uncomplicated; E78.00 Pure hypercholesterolemia, unspecified; R73.01 Impaired fasting glucose; Z79.82 Long term (current) use of aspirin | CPT/HCPCS: 96127 ==

== ENCOUNTER → 2024-08-25 09:02 | Outpatient (REF) | payer OTHER, SELFPAY ==
--- NOTE | 2024-08-25 09:07 | CA_ITS ---
Transthoracic Echocardiogram Patient (Last, First, Middle): Jaren Mcneill, Gender: Male Date of : 1970 Age: 54 Procedure Date: 08/25/2024 Procedure Type: Transthoracic Echocardiogram Location: OP Height: 180. cm Weight: 88. kg BSA: 2.08 m2 Heart Rate: 74 bpm BP: 122 / 85 mmHg Helicopter Engineer: VICKY Referring MD: Olivier Enamorado MD Housekeeping Worker: Olivier Enamorado MD Symptoms: I34.1 - Nonrheumatic mitral (valve) prolapse Study Quality: Adequate ECG Rhythm: Sinus Conclusions: - 1. Normal LV ejection fraction 55-60% 2. Mild prolapse of the posterior mitral leaflet with mild-to moderate mitral regurgitation 3. No gross pericardial effusion Findings Left Ventricle Normal left ventricular size, thickness, and systolic function. The visually estimated ejection fraction is between 55-60%. There is paradoxical septal motion consistent with a left bundle branch block. Spectral Doppler is indicative of a normal filling pattern. Right Ventricle Normal right ventricular cavity size and systolic function. Atria The left atrium is likely dilated. There is no evidence of interatrial shunt. The right atrium is normal in size. Aortic Valve Normal aortic valve structure and function. Mitral Valve The mitral valve appears myxomatous. There is mild anterior and posterior mitral leaflet thickening. There is mild posterior mitral leaflet prolapse. There is mild to moderate mitral valve regurgitation. The mitral regurgitation jet is directed anteriorly. There is no mitral valve stenosis. Pulmonic Valve The pulmonic valve is likely normal. Tricuspid Valve Normal tricuspid valve structure. Tricuspid regurgitation envelope is inadequate for calculation of right ventricular systolic pressure. Normal right atrial pressure. Great Vessels All visible segments of the aorta are normal in size. The pulmonary artery was not well visualized. There is no dilatation of the ascending aorta measuring 3.10 cm. Venous The inferior vena cava is normal in size and collapses greater than 50% with inspiration. Pericardium/Pleural There is no evidence of pericardial effusion. Prior Study Comparison Changes noted compared to prior study dated: 08/12/2022. mitral regurgitation is wdfs-ba-zewlhrem in severity Measurements 2D Linear Measurements IVSd: 1.14 0.6-0.9/0.6-1.0 cm LVIDd: 4.65 3.9-5.3/4.2-5.9 cm LVIDd Index: 2.24 2.4-3.2/2.2-3.1 cm/m2 LVIDs: 3.03 2.0-3.6 cm LVPWd: 0.89 0.7-1.1 cm LA Diam: 3.80 2.7-3.8/3.0-4.0 cm LAIDs Index: 1.83 1.5-2.3 cm/m2 LV Mass: 205.02 67-162/88-224 g LV Mass Index: 98.57 43-95/49-115 g/m2 LVOT Diam: 2.20 3.0+(-)1.3 cm 2D Systolic Function EF 4C: 54.60 >55% EF 2C: 58.10 >55% EF BiP: 56.30 >55% Mitral Valve MV Pk E: 0.89 MV PK A: 0.67 MV Decel Time: 228.00 E/A: 1.30 E'Lateral: 9.46 E'Medial: 7.62 E/E' Med: 11.60 E/E' Lat: 9.40 PHT: 67.00 MVA PHT: 3.28 Decel [place]: 3.89 Aortic Valve AoV Pk Kevon: 1.19 AoV Mn Kevon: 0.94 AoV VTI: 0.25 AoV Pk Grad: 6.00 Aov Mn Grad: 4.00 IGLBERT Cont.VTI: 3.29 LVOT LVOT Pk Kevon: 1.12 LVOT Mn Kevon: 0.79 LVOT VTI: 0.22 LVOT Pk Grad: 5.00 LVOT Mn Grad: 3.00 LVOT Diam: 2.20 LVOT Area: 3.80 Diastolic Function MV Pk E: 0.89 MV Pk A: 0.67 E/A: 1.30 E'Medial: 7.62 E/E' Med: 11.60 E' Laterial: 9.46 E/E' Lat: 9.40 Right Ventricle TAPSE (mm): 23.90 TVS' Kevon: 12.90 Tricuspid Valve TR Pk Kevon: 1.86 TR Pk Grad: 14.00 Great Vessels Aorta Sinus of Valsalva: 3.60 2.0-3.5 cm Ao Asc: 3.10 2.1-3.4 cm Ao Arch: 2.40 Pulmonary Valve PV Pk Kevon: 1.13 Peak PV Grad: 5.00 Updated in Other Vendor System with Status of Final Olivier Enamorado MD electronically signed on 08/25/2024 4:20:36 PM with status of Final
== END ==
LOC: HO.CARD 09:02
PROVIDERS: PCP Internal Medicine; Visit Provider Internal Medicine Cardiovascular Disease
DX: I34.1 Nonrheumatic mitral (valve) prolapse (principal)
CPT/HCPCS: 93306

== ENCOUNTER → 2024-08-25 09:07 | Outpatient (BNV) | payer BC, SELFPAY | PROVIDERS: PCP Internal Medicine; Visit Provider Internal Medicine Cardiovascular Disease | DX: I34.1 Nonrheumatic mitral (valve) prolapse (principal); I34.0 Nonrheumatic mitral (valve) insufficiency | CPT/HCPCS: 93306 ==

== ENCOUNTER 2024-09-05 08:29 | Outpatient (AMB) | payer BC, SELFPAY ==
[2024-09-05 08:33] VITALS: PULSE 114; TEMP 39.1; O2SAT 97; BMI 28.1
--- NOTE | 2024-09-05 08:33 | MHC.PC.OV ---
Vital Signs 09/05/24 08:33 Height 5 ft 10 in Weight 196 lb BMI 28.1 Blood Pressure Location Lt brachial Position Sitting Pulse 114 H Pulse Source Pulse Oximeter Temp 102.4 F H Temp Source Oral Pulse Oximetry (%) 97 Oxygen Delivery Method Room Air Intake Visit Reasons: flu symptoms Intake Note: Has tried the Vicks liquid Day and Night, and Advil cold and sinus, he feels he is just getting worst. Has not tested for COVID. Allergies No Known Allergies Allergy (Verified 09/05/24 08:33) shellfish Allergy (Severe, Uncoded 09/05/24 08:33) Vomiting Medication List - Last Reconciled 09/05/24 by Wai Hollis MD albuterol sulfate 90 mcg/actuation 2 puffs inhalation Q6H PRN aspirin 81 mg PO DAILY atorvastatin 80 mg PO DAILY azithromycin (Zithromax) For 250 mg dose pack: take 500 mg today (day 1), then 250 mg for 4 days (days 2-5) PO budesonide DR-ER 3 mg PO DAILY vmlxgmzbpw-wsjfnpla-sqwnvrnyel 160-9-4.8 mcg/actuation (Breztri Aerosphere) 2 inhalations inhalation BID 30 days ezetimibe 10 mg PO DAILY metoprolol succinate ER 25 mg PO DAILY multivitamin (One-A-Day Essential tablet) 1 tab PO DAILY nitroglycerin 0.4 mg sublingual Q5M PRN omeprazole 20 mg PO BID prednisone 4 tabs QD x 2 days then 3 tabs QD x 2 days then 2 tabs Qd x 2 days then 1 tab QD x 2 days PO daily; trazodone 50 mg PO DAILY Tobacco use date assessed: 09/05/24 Dental Screening Dental Screen Date: 09/05/24 Did you have a dental visit in the last 12 months?: Yes Did you have a dental problem in the last 6 months where you did not have access to dental care?: No Was dental information given to patient?: Patient has dentist HPI flu symptoms HPI Details The patient is a 54-year-old male presenting with symptoms suggestive of an upper respiratory infection. The patient reported experiencing a sense of an impending cold for the past week, which has progressively worsened. His had been sick, prompting him to take precautionary measures, including increased fluid intake, specifically water and orange juice, to prevent illness. Although he initially did not have a fever when symptoms began, he initially reported a fever which reached 102?F. Currently, symptoms include nasal congestion, a dry persistent cough, and a sore throat likely due to coughing. The patient also complained of ear discomfort attributed to mask use rather than infection. He has experienced increased use of his rescue inhaler due to shortness of breath and mild wheezing, consistent with his reactive airway disease. Self-medicative efforts before the visit included the use of Tylenol, an flcj-avt-fhcllyr sinus medication, and Vicks Vapor rub. The patient denies diarrhea and noted that he has been drinking what he perceived as an adequate amount of water, though he experiences dry mouth upon waking. No recent testing for COVID-19 or RSV was conducted. He has a history of using prednisone and azithromycin (Z-Joshua) with past similar episodes, though those were initiated due to previously heard wheezing which is absent today. [facility] Medical History (Updated 09/05/24 @ 08:49 by Wai Hollis MD) Blood D-dimer assay positive Abnormal nuclear stress test Mitral valve prolapse Left bundle branch block Atypical chest pain Fracture of knee region Concussion Hx of upper gastrointestinal hemorrhage Elevated cholesterol GERD (gastroesophageal reflux disease) Anemia Asthma Myocardial infarction CAD (coronary artery disease) Surgical History Hx of heart artery stent History of esophagogastroduodenoscopy (EGD) Family History (Updated 12/22/23 @ 09:15 by Idalia Morgan CMA) Mother No problems noted. Father Diabetes Sister No problems noted. Brother Throat cancer Son Pacemaker Social History (Updated 12/22/23 @ 09:43 by Wai Hollis MD) Housing: House Alcohol intake: current Alcohol intake frequency: a few times a month Alcohol type: beer Comment: 2-3 x a week 2-3 beers Patient Tobacco Use Status: Never used Tobacco Tobacco use type: Cigarette e-Cigarette/Vaping Use: Never Used Second Hand Smoke Exposure: No Current occupational status: employed Cognitive needs: No Hearing needs: No Vision needs: Yes Questionnaire PHQ-9 Over the last 2 weeks, how often have you been bothered by any of the following problems? 1. Little interest or pleasure in doing things: not at all 2. Feeling down, depressed, or hopeless: not at all 3. Trouble falling or staying asleep, or sleeping too much: not at all 4. Feeling tired or having little energy: not at all 5. Poor appetite or overeating: not at all 6. Feeling bad about yourself - or that you are a failure or have let yourself or your family down: not at all 7. Trouble concentrating on things, such as reading the newspaper or watching television: not at all 8. Moving or speaking so slowly that other people could have noticed. Or the opposite - being so fidgety or restless that you have been moving around a lot more than usual: not at all 9. Thoughts that you would be better off or of hurting yourself in some way: not at all Total score: 0 Depression Screening Interpretation: Negative Depression Screening Done: Yes 29118 - PHQ-9 Billing: Yes Source: Developed by Drs. Bowen Jurado, Cyndie Lester, Imtiaz Silva and colleagues, with an educational deep from [employer]. Thrive Questionnaire Date Thrive assessed: 09/05/24 I am a: Patient What is your living situation today?: I have a steady place to live Within the past 12 months, did the food you bought not last and you didn't have the money to get more?: Never true Within the past 12 months, did you worry whether your food would run out before you got money to buy more?: Never true Do you have trouble paying for medicines?: No Do you have trouble getting transportation to medical appointments?: No Do you have trouble paying your heating and electricity bill?: No Do you have trouble taking care of your child, family member or friend?: No Do you have trouble with day-to-day activities such as bathing, preparing meals, shopping, managing finances, etc.?: No Are you currently unemployed and looking for a job?: No Are you interested in more education?: No Please select the resources that you would like help with: None Currently or been in a relationship where the following occur: No concerns reported THRIVE Score: 0 AUDIT C Alcohol Use Questionnaire (AUDIT-C) 2. How many drinks containing alcohol do you have on a typical day when you are drinking?: 1 or 2 3. How often do you have six or more drinks on one occasion?: Never Total Score: 0 JAEL-7 AMB Questionnaire JAEL-7 Date JAEL - 7 assessed: 09/05/24 Feeling nervous, anxious, or on edge: 0 = Not at all Not being able to stop or control worryin = Not at all Worrying too much about different things: 0 = Not at all Trouble relaxin = Not at all Being so restless that it is hard to sit still: 0 = Not at all Becoming easily annoyed or irritable: 0 = Not at all Feeling afraid as if something awful might happen: 0 = Not at all Total JAEL-7 score (0-4 normal; 5-9 mild; 10-14 moderate; 15-21 severe): 0 Source: Developed by Drs. Bowen Jurado, Cyndie Lester, Imtiaz Silva and colleagues, with an educational deep from [employer]. JAEL-7 Assessment Billing JAEL-7 Assessment Tool: JAEL-7 Assessment 48563 Physical exam (Primary Care) Vital Signs: Oxygen Delivery Method Room Air 09/05/24 08:33 BMI result Body Mass Index 28.1 Tobacco/Smoking Status: Tobacco use Status Tobacco use date assessed 05/23/24 05/23/24 09:02 Patient Tobacco Use Status Never used Tobacco 05/23/24 09:02 Tobacco use type Cigarette 05/23/24 09:02 e-Cigarette/Vaping Use Never Used 05/23/24 09:02 Depression Screening Interpretation: Negative Thrive Assessment: Date of Thrive Assessment Date Thrive assessed 05/21/24 05/23/24 09:02 Currently or been in a relationship where the following occur: No concerns reported Const General: alert; No acute distress HENMT Other: post pharyngeal wal with cobblestone , mild red Eyes Conjunctivae: conjunctivae normal Resp Other: decrease breath sounds mild rhonchi but no wheezing , patient did just use the inhaler. Cardio Rate: regular rate Rhythm: regular rhythm GI Inspection: Yes normal to inspection Extrem General: Yes normal to inspection and No edema Coding Level of Care Code Est Pt Level 3 (87300) Diagnoses Moderate persistent asthma without complication J45.40 Asthma complication type: uncomplicated Asthma persistence: persistent Asthma severity: moderate Coronary artery disease involving [place] coronary artery of [place] heart without angina pectoris I25.10 Associated angina: without angina Coronary Disease-Associated Artery/Lesion type: [place] artery [place] vs. transplanted heart: [place] heart Mitral valve prolapse I34.1 Cough R05.9 Additional Codes JAEL-7 Assessment Billing - JAEL-7 Assessment Tool: JAEL-7 Assessment 42899 ([id number]) PHQ-9 - 41912 - PHQ-9 Billing: Yes ([id number]) Assessment & Plan Assessment & Plan (1) Asthma: Comment: Moderate persistent Code(s): J45.909 - Unspecified asthma, uncomplicated Category: Medical Qualifiers: Asthma complication type: uncomplicated Asthma persistence: persistent Asthma severity: moderate Qualified Code(s): J45.40 - Moderate persistent asthma, uncomplicated (2) CAD (coronary artery disease): Comment: CLAUDIA to proximal LAD 2015 Code(s): I25.10 - Atherosclerotic heart disease of [place] coronary artery without angina pectoris Category: Medical Qualifiers: Associated angina: without angina Coronary Disease-Associated Artery/Lesion type: [place] artery [place] vs. transplanted heart: [place] heart Qualified Code(s): I25.10 - Atherosclerotic heart disease of [place] coronary artery without angina pectoris (3) Mitral valve prolapse: Comment: 08/2024 mod mitral regurg Code(s): I34.1 - Nonrheumatic mitral (valve) prolapse Category: Medical (4) Cough: Code(s): R05.9 - Cough, unspecified Category: Medical Plan: Discussed my concern on covid 19 infection Plan - Orders placed for diagnostic testing for COVID-19, RSV, and influenza to determine the viral cause. - Recommend continued use of Tylenol for symptom management. - Encouraged increased fluid intake to prevent dehydration and to help alleviate symptoms. - If diagnosed, management with antiviral if positive for COVID-19 - PAxlovid and Tamiflu if positive for influenza is considered. - Patient advised to use Delsym for the dry cough at nighttime to aid sleep and Mucinex if phlegm is produced. - Considered reserve prescriptions for prednisone and azithromycin, albeit not mandatory at present given the lack of identified bacterial infection. - Discussed the risk-benefit of steroids, particularly in the context of immune suppression. - Emphasized viral nature as the likely etiology, signifying supportive care as primary intervention. - Recommended rest and supportive care, with a focus on monitoring and addressing any changes. - Advised re-evaluation should symptoms persist or change in character. Orders: Orders SARS-CoV2/FLU/RSV Today R05.9 - Cough, unspecified Medications: New prednisone 4 tabs QD x 2 days then 3 tabs QD x 2 days then 2 tabs Qd x 2 days then 1 tab QD x 2 days PO daily; 20 tabs 0RF J45.909 - Unspecified asthma, uncomplicated, R05.9 - Cough, unspecified azithromycin (Zithromax) For 250 mg dose pack: take 500 mg today (day 1), then 250 mg for 4 days (days 2-5) PO 6 tabs 0RF R05.9 - Cough, unspecified
== END 2024-09-05 09:17 | disposition home or self-care (01) ==
PROVIDERS: PCP Internal Medicine; Visit Provider Internal Medicine
DX: J45.40 Moderate persistent asthma, uncomplicated (principal); I25.10 Atherosclerotic heart disease of native coronary artery without angina pectoris; I34.1 Nonrheumatic mitral (valve) prolapse; R05.9 Cough, unspecified

== ENCOUNTER 2024-09-05 08:29 | Outpatient (REF) | payer BC, SELFPAY ==
[2024-09-05 10:03] LABS: Influenza A PCR POSITIVE (Negative); Influenza B PCR NEGATIVE (Negative); Resp Syncy Virus RNA Qual PCR NEGATIVE (Negative); SARS COV2 PCR INHOUSE NEGATIVE (Negative)
== END 2024-09-05 08:30 | disposition home or self-care (01) ==
LOC: HO.LAB 08:29
PROVIDERS: PCP Internal Medicine; Visit Provider Internal Medicine
DX: J45.40 Moderate persistent asthma, uncomplicated (principal); I25.10 Atherosclerotic heart disease of native coronary artery without angina pectoris; I34.1 Nonrheumatic mitral (valve) prolapse; R05.9 Cough, unspecified
CPT/HCPCS: 0241U; 96127

== ENCOUNTER → 2024-09-19 09:10 | Outpatient (BNVA) | payer BC, SELFPAY | PROVIDERS: PCP Internal Medicine; Visit Provider Internal Medicine Cardiovascular Disease | DX: I25.10 Atherosclerotic heart disease of native coronary artery without angina pectoris (principal); I34.1 Nonrheumatic mitral (valve) prolapse; I44.7 Left bundle-branch block, unspecified; Z79.82 Long term (current) use of aspirin; Z79.899 Other long term (current) drug therapy | CPT/HCPCS: 93005 ==

== ENCOUNTER 2024-12-12 15:31 | Outpatient (AMB) | payer BC, SELFPAY ==
--- NOTE | 2024-12-12 15:45 | A.OFFPC_ITS ---
Vital Signs 12/12/24 15:47 12/12/24 16:16 Height 5 ft 10 in 5 ft 10 in Weight 191 lb 12.8 oz BMI 27.5 BP 110/70 Blood Pressure Location Lt brachial Lt brachial Position Sitting Sitting Respiration 16 Pulse 96 Pulse Source Pulse Oximeter Pulse Oximeter Temp 97.7 F Temp Source Temporal Artery Scan Temporal Artery Scan Pulse Oximetry (%) 96 Oxygen Delivery Method Room Air Room Air Intake Visit Reasons: follow up Intake Note: Patient is here to follow up on Asthma, CAD, GERD. Canvas Worker Required: No Accompanied by: Self / Same As Patient Allergies shellfish Allergy (Severe, Uncoded 12/12/24 16:19) Vomiting Medication List - Last Reconciled 12/12/24 by Wai Hollis MD albuterol sulfate 90 mcg/actuation 2 puffs inhalation Q6H PRN aspirin 81 mg PO DAILY atorvastatin 80 mg PO DAILY budesonide DR-ER 3 mg PO DAILY [id number]-[id number]-pwvpddnsus 160-9-4.8 mcg/actuation (Breztri Aerosphere) 2 inhalations inhalation BID 30 days ezetimibe 10 mg PO DAILY metoprolol succinate ER 25 mg PO DAILY multivitamin (One-A-Day Essential tablet) 1 tab PO DAILY nitroglycerin 0.4 mg sublingual Q5M PRN omeprazole 20 mg PO BID trazodone 50 mg PO DAILY Tobacco use date assessed: 12/12/24 Dental Screening Dental Screen Date: 12/12/24 Did you have a dental visit in the last 12 months?: Yes Did you have a dental problem in the last 6 months where you did not have access to dental care?: No Was dental information given to patient?: Patient has dentist [facility] Medical History Blood D-dimer assay positive Abnormal nuclear stress test Mitral valve prolapse Left bundle branch block Atypical chest pain Fracture of knee region Concussion Hx of upper gastrointestinal hemorrhage Elevated cholesterol GERD (gastroesophageal reflux disease) Anemia Asthma Myocardial infarction CAD (coronary artery disease) Surgical History Hx of heart artery stent History of esophagogastroduodenoscopy (EGD) Family History Mother No problems noted. Father Diabetes Sister No problems noted. Brother Throat cancer Son Pacemaker Social History Housing: House Alcohol intake: current Alcohol intake frequency: a few times a month Alcohol type: beer Comment: 2-3 x a week 2-3 beers Patient Tobacco Use Status: Never used Tobacco Tobacco use type: Cigarette e-Cigarette/Vaping Use: Never Used Second Hand Smoke Exposure: No service: No Current occupational status: employed Cognitive needs: No Hearing needs: No Vision needs: Yes (Glasses) Questionnaire Thrive Questionnaire Date Thrive assessed: 12/12/24 I am a: Patient What is your living situation today?: I have a steady place to live Within the past 12 months, did the food you bought not last and you didn't have the money to get more?: Never true Within the past 12 months, did you worry whether your food would run out before you got money to buy more?: Never true Do you have trouble paying for medicines?: No Do you have trouble getting transportation to medical appointments?: No Do you have trouble paying your heating and electricity bill?: No Do you have trouble taking care of your child, family member or friend?: No Do you have trouble with day-to-day activities such as bathing, preparing meals, shopping, managing finances, etc.?: No Are you currently unemployed and looking for a job?: No Are you interested in more education?: No Please select the resources that you would like help with: None Currently or been in a relationship where the following occur: No concerns reported THRIVE Score: 0 AUDIT C Alcohol Use Questionnaire (AUDIT-C) 1. How often do you have a drink containing alcohol?: 2-4 times a month 2. How many drinks containing alcohol do you have on a typical day when you are drinking?: 1 or 2 3. How often do you have six or more drinks on one occasion?: Never Total Score: 2 Score Reviewed/Action Taken: No JAEL-7 AMB Questionnaire JAEL-7 Date JAEL - 7 assessed: 09/05/24 Source: Developed by Drs. Bowen Jurado, Cyndie Lester, Imtiaz Silva and colleagues, with an educational deep from [employer]. Physical exam (Primary Care) Vital Signs: Last Vital Signs Temp 97.7 F 12/12/24 16:16 Pulse 96 12/12/24 16:16 Resp 16 12/12/24 16:16 BP 110/70 12/12/24 16:16 Pulse Ox 96 12/12/24 16:16 Oxygen Delivery Method Room Air 12/12/24 16:16 BMI result Body Mass Index 27.5 Tobacco/Smoking Status: Tobacco use Status Tobacco use date assessed 12/12/24 12/12/24 16:16 Patient Tobacco Use Status Never used Tobacco 12/12/24 16:24 Tobacco use type Cigarette 12/12/24 16:24 e-Cigarette/Vaping Use Never Used 12/12/24 16:24 Thrive Assessment: Date of Thrive Assessment Date Thrive assessed 12/12/24 12/12/24 16:16 Currently or been in a relationship where the following occur: No concerns reported Const General: alert; No acute distress Eyes Conjunctivae: conjunctivae normal Resp Auscultation: clear to auscultation bilaterally Cardio Rate: regular rate Rhythm: regular rhythm GI Inspection: Yes normal to inspection Extrem General: Yes normal to inspection and No edema Coding Level of Care Code Est Pt Level 4 (66838) Complex EM visit Add On G2211 Diagnoses Impaired fasting blood sugar R73.01 Elevated cholesterol E78.00 Eosinophilic esophagitis K20.0 Moderate persistent asthma without complication J45.40 Asthma severity: moderate Asthma persistence: persistent Asthma complication type: uncomplicated Coronary artery disease involving [place] coronary artery of [place] heart without angina pectoris I25.10 Coronary Disease-Associated Artery/Lesion type: [place] artery [place] vs. transplanted heart: [place] heart Associated angina: without angina Gastroesophageal reflux disease with esophagitis without hemorrhage K21.00 Esophagitis presence: with esophagitis Esophagitis bleeding: without hemorrhage Mitral valve prolapse I34.1 Assessment & Plan Assessment & Plan (1) Impaired fasting blood sugar: Code(s): R73.01 - Impaired fasting glucose Category: Medical Plan: Decrease the amount of carbohydrate intake, pasta, bread, rice and potatoes are all sugar and that is aside from all the sweet stuff, remember that fruits are good but they are Sweet also. (2) Elevated cholesterol: Code(s): E78.00 - Pure hypercholesterolemia, unspecified Category: Medical Plan: Avoid fried foods, chicken skin, eggs, butter margarine, pastries and meat. Be it pork or beef they have a lot of cholesterol on atorvastatin 80 mg once a day and Zetia 10 mg once a day (3) Eosinophilic esophagitis: Code(s): K20.0 - Eosinophilic esophagitis Category: Medical Plan: EGD pending patient is on omeprazole (4) Asthma: Comment: Moderate persistent Code(s): J45.909 - Unspecified asthma, uncomplicated Category: Medical Qualifiers: Asthma severity: moderate Asthma persistence: persistent Asthma complication type: uncomplicated Qualified Code(s): J45.40 - Moderate persistent asthma, uncomplicated Plan: Continue with albuterol inhaler and on Breztri (5) CAD (coronary artery disease): Comment: CLAUDIA to proximal LAD 2015 Code(s): I25.10 - Atherosclerotic heart disease of [place] coronary artery without angina pectoris Category: Medical Qualifiers: Coronary Disease-Associated Artery/Lesion type: [place] artery [place] vs. transplanted heart: [place] heart Associated angina: without angina Q ualified Code(s): I25.10 - Atherosclerotic heart disease of [place] coronary artery without angina pectoris Plan: Control the cholesterol, weight, blood pressure, continue with aspirin for life (6) GERD (gastroesophageal reflux disease): Code(s): K21.9 - Gastro-esophageal reflux disease without esophagitis Category: Medical Qualifiers: Esophagitis presence: with esophagitis Esophagitis bleeding: without hemorrhage Qualified Code(s): K21.00 - Gastro-esophageal reflux disease with esophagitis, without bleeding Plan: Avoid the foods that causes that usually spicy foods, tomato products, juices, coffee, soda and foods that your sensitive to. After eating do not lie down, allow 3-4 hours before in lie down. And keep the head of bed above 30 degrees to avoid the acid from going up. (7) Mitral valve prolapse: Comment: 08/2024 mod mitral regurg Code(s): I34.1 - Nonrheumatic mitral (valve) prolapse Category: Medical Plan: Patient is advised to get echocardiogram in 2025 Plan History of Present Illness The patient is a 54-year-old male presenting with a history of coronary artery disease, managed with aspirin and an aggressive lipid-lowering regimen, which includes atorvastatin and Zetia. He reports good management of his LDL cholesterol level, recently measured at 42 mg/dL. He suffers from GERD and eosinophilic esophagitis and is currently on omeprazole. The patient has a history of mild anemia, as identified in blood tests, and requires ongoing monitoring. The patient's asthma medication regimen includes Breztri, with albuterol as a rescue inhaler. His understanding of proper inhaler use is reinforced during the consultation. There are concerns about a recurrent glandular swelling near his ear that resolves spontaneously without significant pain or jaw function impact. Health Maintenance - Cardiovascular risk management through lipid-lowering therapy: atorvastatin and Zetia. - Scheduled follow-up for echocardiogram in 2025. - Future EGD scheduled for February 2025. - Monitoring of anemia via regular CBC tests. - Asthma management with Breztri and albuterol inhalers. - Vaccination status: Tetanus up to date; shingles discussed, with consideration for vaccination due to prior history. 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 - Functional status: No reported limitations. - No tobacco use, alcohol, or drug discussions noted during the visit. Review of Systems - Cardiovascular: Denies symptoms of congestive heart failure. - Respiratory: Reports mild asthma managed with inhalers; denies frequent shortness of breath. - Gastrointestinal: Denies severe GERD symptoms due to omeprazole treatment. - Hematologic: Reports known mild anemia. - Musculoskeletal: Denies pain associated with jaw movement. - Lymphatic: Reports intermittent swelling sensation near the ear. - Neurological: Denies significant headaches or ear pain. Physical Exam - Ear/Nose/Throat- Mild ear wax present but not obstructing. - Lymphatics- No significant lymphadenopathy noted on the exam. Results - Labs: March 2024 blood work shows mild anemia, LDL cholesterol at 42 mg/dL. - Echocardiogram: Mild mitral valve prolapse with mild to moderate mitral regurgitation as of August 2024. Plan 1. Ongoing asthma control with Breo Ellipta and rescue albuterol was advised. Repeat blood work is planned to monitor anemia. Continued use of omeprazole is indicated for GERD management. Lymphatic swelling is not actionable currently. The shingles vaccine discussion was inclusive given previous shingles history, emphasizing future preventive measures.: Patient was informed and verbally consented to the use of an ambient scribe for clinic note documentation during this visit. Discussion Notes In our discussion, we reviewed the patient's treatment adherence to high- intensity statins and Zetia, achieving a remarkable LDL reduction to 42 mg/dL. With respect to cardiac health, he is prepared for echocardiographic follow-up in 2025. Education on inhalers was prioritized, clarifying when and how to utilize Breo Ellipta and albuterol effectively. Anemia tracking through regular blood evaluations is planned, given periodic variations observed. The minor lymphatic swelling was regarded as benign, without immediate concerns. The patient expressed prior complication-free experience with shingles; vaccination credibility was explained, reflecting a prudent preventive measure. Moving forward, regular consults are envisaged to streamline chronic disease and wellness management. Patient Instructions - Continue taking atorvastatin 80 mg and Zetia 10 mg daily. - Keep using Breztri once daily and albuterol only during difficulty breathing or emergencies. - Follow up yearly for an echocardiogram to monitor heart health. - Schedule and complete EGD as planned in February 2025. - Go to the lab for routine blood work; monitor anemia results. - - Report increased shortness of breath, pain, or swelling in new areas promptly. - Keep emergency prescriptions, including nitroglycerin, correctly available. - Schedule annual physical follow-ups.
[2024-12-12 16:16] VITALS: BP 110/70; PULSE 96; RESP 16; TEMP 36.5; O2SAT 96; BMI 27.5
--- OUTSIDE RECORDS SUMMARY | 2024-12-12 18:25 | XMS_ITS ---
Author Organization [facility] Address [address] [place] [id number] Care Team Providers Care Central Office Inspector Name Role Phone Wai Hollis MD Primary Care Provider Bowen Gonzalez [phone] REASON FOR VISIT rectal bleeding Encounters Encounter Location Date Provider Diagnosis [facility] [address] [place] [phone] 03/31/2024 Bowen Hull Rectal bleeding K62.5 Assessments Encounter Date Diagnosis (ICD Code) Assessment Notes Treatment Notes Treatment Clinical Notes Section Notes 03/31/2024 Rectal bleeding (ICD-10 - K62.5) Plan Of Treatment Pending Test Test Name Order Date CBC w DIFF 03/31/2024 Next Appt Details Provider Name:Bowen Hull , 03/12/2025 07:30:00 AM, [address] [place] [address], [id number], Progress Notes * DANAE GRULLON EDOB:1970 (53 yo M)Acc No.[id number]:03/31/2024 Patient:?DANAE GRULLON :1970???Age:53 Y???Sex:Male Address:[address] [place] [id number] Subjective: * Chief Complaints: * ???Rectal bleeding * Medical History:? * Surgical History:? * Hospitalization/Major Diagno stic Procedure:? * Medications:? Objective: Assessment: * Assessment: 1.?Rectal bleeding - K62.5 ( Primary)? Plan: * Treatment: * Procedure Codes:? * true * Date:? Generated for Gaby riley/Luis Miguel/Tanya on:?12/12/2024 06:25 PM EDT
--- OUTSIDE RECORDS SUMMARY | 2024-12-12 18:25 | XMS_ITS ---
Author Organization [facility] Address [address] [place] [phone] Care Team Providers Care Sales Development Director Name Role Phone Po Wai ALFARO Primary Care Provider Bowen Gonzalez [phone] REASON FOR VISIT r/s procedure Encounters Encounter Location Date Provider Diagnosis [facility] [address] [place] [phone] 11/17/2024 Bowen Hull Plan Of Treatment Next Appt Details Provider Name:Bowen Hull , 03/12/2025 07:30:00 AM, [address] [place] [address], [id number], Progress Notes * DANAE GRULLON EDOB:1970 (54 yo M)Acc No.[id number]:11/17/2024 Patient:?DANAE GRULLON :1970???Age:54 Y???Sex:Male Address:[address] [place] [id number] * true * Date:? Generated for Printi rosemary/Luis Miguel/eTransmitting on:?12/12/2024 06:25 PM EDT
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
--- OUTSIDE RECORDS SUMMARY | 2024-12-12 18:26 | XMS_ITS ---
Author Organization [facility] Address [address] [place] [address] Care Team Providers Care Pharmacist Intern Name Role Phone Po Wai ALFARO Primary Care Provider Bowen Gonzalez [phone] Allergies No Known Allergies REASON FOR VISIT Patient presents today for a discuss colonoscopy Medications Medication SIG (Take, Route, Frequency, Duration) Notes Start Date End Date Status Omeprazole 20 MG 1 Once a day Active Pepcid 40 MG 1 tablet Orally Once a day in the evening--take 1 hour before or after dinner for 30 Not-Taking Famotidine 40 MG 1 tablet Orally QPM for 30 day(s) 06/30/2016 Not-Taking ProAir HFA Not-Takin g Budesonide Not-Takin g Ezetimibe 10 MG 1 tablet Orally Once [...] trouble swallowing for 90 days 11/24/2021 Active Aspirin Low Dose 81 MG 1 tablet Orally Once a day Active WI Benzoyl Peroxide Active Dulera 100-5 MCG/ACT 2 puffs Inhalation Twice a day Active Atorvastatin Calcium 80 MG 1 tablet Orally Once a day Active Nitroglycerin 0.4 MG as directed Sublingual prn Active Immunizations Vaccine Route Administration Date Status Comme nts Influenza Unknown 2024 Refused Social History Alcohol [...] Problem Status W/U Status Risk Notes Problem Screening for malignant neoplasm of colon ([id number]) Encounter for screening for malignant neoplasm of colon (Z12.11) Active confirmed Vital Signs Temperature 98.6 degrees Fahrenheit 08/24/19 25 Blood pressure systolic 000 mm Hg 08/24/19 25 Blood pressure diastolic 00 mm Hg 025 Height 72.5 in 2024 Weight 192 lbs 2024 BMI 25.68 kg/m2 2024 Encounters Encounter Location Date Provider Diagnosis [facility] [address] [place] [address] 2024 Bowen Hull Dysphagia, unspecifi ed type R13.10 ; Eosinophilic esophagitis K20.0 ; Esophageal ring K22.2 ; History of adenomatous polyp of colon Z86.010 and Encounter for screening for malignant neoplasm of colon Z12.11 Assessments Encounter Date Diagnosis (ICD Code) Assessment Notes Treatment Notes Treatment Clinical Notes Section Notes 2024 Dysphagia, unspecified type (ICD-10 - R13.10) [...] keep you advised of his progress. 2024 Eosinophilic esophagitis (ICD-10 - K20.0) Overall, [...] keep you advised of his progress. 2024 Esophageal ring (ICD-10 - K22.2) Overall, [...] advised of his progress. Plan Of Treatment Treatment Notes Assessment Notes Encounter for screening for malignant neoplasm of colon Do not take aspirin on the morning of th e procedures Future Test Test Name Order Date UPPER GI ENDOSCOPY BALLOOON DILATION OF ESOPH 2024 COLONOSCOPY 2024 Next Appt Details Follow Up: prn, Reason: Provider Name:Bowen Hull , 03/12/2025 07:30:00 AM, [address] [place] [address] , [place], [place], [phone], Progress Notes * JAREN GRULLON EDOB:1970 (54 yo M)Acc No.[id number]:2024 Progress Notes Patient:?JAREN GRULLON Provider:?Bowen Hull MD :1970???Age:54 Y???Sex:Male Wale e:2024 Address:[address] [place] [address] Pcp:Wai Hollis MD Subjective: * Chief Complaints: * ???Patient presents today fo r a discuss colonoscopy * HPI: ???incontinence:? I saw Jaren in followup today in regard to his underlying history of eosinophilic esophagitis, history of gastroesophageal reflux with esophagitis, history of a distal esophageal ring, intermittent dysphagia, personal history of tubular adenoma of the colon, and need for colorectal cancer screening. ?I last saw Jaren in October of 2023. Since that time he has been feeling well. He did have a single episode of some rectal bleeding back in March but has not had any problems since that time. His bowel movements have been regular and without any sign of melena nor any further hematochezia. He does remain on daily omeprazole 20 mg and budesonide 3 mg every other day for the underlying reflux esophagitis and eosinophilic esophagitis, respectively. He does describe occasional episodes of dysphagia in which he will have to regurgitate the food, but this occurs less than once a month. He denies any significant heartburn, anorexia, early satiety, nausea, nor vomiting. He denies abdominal pain, jaundice, nor unintentional weight loss. * ROS:?General/Constitutional:?Change in appetite?denies.?Chills?denies.?Fatigue?denies.?Ophthalmologic:?Patient denies? Negative..?ENT:?Patient denies?Negative..?Respiratory:?Patient denies?No coughing/hemoptysis..?Cardiovascular:?Patient denies? No chest pain/orthopnea..?Gastrointestinal:?Comments?See HPI for details.?Genitourinary:?Patient denies? No dysuria/hematuria..?Musculoskeletal:?Patient denies? No specific arthralgias/myalgias..?Skin:?Patient denies?No rash/pruritus..?Neurologic:?Patient denies? No headaches/seizures..?Psychiatric:?Patient denies?Negative..? * Medical History:? * Surgical History:?No Surgica l History documented. * Hospitalization/Major Diagno stic Procedure:?No Hospitalization History. * Family History:?Father: caleb rendon, diagnosed with HTN (hypertension), Diabetes.?Mother: alive.? Denies family hx of colon cancer. No liver cancer in family history. * Social History:?Tobacco Use:?Tobacco Use/Smoking?Are you a: nonsmoker.?Drugs/Alcohol:?Alcohol Screen?Did you have a drink containing alcohol in the past year??Yes,?How often did you have a drink containing alcohol in the past year??Monthly or less (1 point), How many drinks did you have on a typical day when you were drinking in the past year??1 or 2 drinks (0 point),?How often did you have 6 or more drinks on one occasion in the past year??Never (0 point),?Points?1,?Interpretation?Negative.?Miscellaneous:?Marital status: . 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 ???He does not smoke, and denies any sig. alcohol intake. * Medications:?TakingPR Benzoy l Peroxide Dulera 100-5 MCG/ACT Aerosol 2 puffs Inhalation Twice a dayAtorvastatin Calcium 80 MG Tablet 1 tablet Orally Once a dayNitroglycerin 0.4 MG Tablet Sublingual as directed Sublingual prnAspirin Low Dose 81 MG Tablet Delayed Release 1 tablet Orally Once a dayEzetimibe 10 MG Tablet 1 tablet Orally Once a day, Notes: CholesterolMetoprolol Succinate 25 MG Capsule ER 24 Hour Sprinkle 1 capsule Orally Once a dayAdvil , Notes: PRNBudesonide 3 MG Capsule Delayed Release Particles 1 Orally Once a day or once every other day for trouble swallowingBudesonide 3 MG Capsule Delayed Release Particles 1 orally once daily or once every other day for trouble swallowingOmeprazole 20 MG Capsule Delayed Release 1 Once a dayTaking WI Benzoyl Peroxide Taking Dulera 100-5 MCG/ACT Aerosol 2 puffs Inhalation Twice a dayTaking Atorvastatin Calcium 80 MG Tablet 1 tablet Orally Once a dayTaking Nitroglycerin 0.4 MG Tablet Sublingual as directed Sublingual prnTaking Aspirin Low Dose 81 MG Tablet Delayed Release 1 tablet Orally Once a dayTaking Ezetimibe 10 MG Tablet 1 tablet Orally Once a day, Notes: CholesterolTaking Metoprolol Succinate 25 MG Capsule ER 24 Hour Sprinkle 1 capsule Orally Once a dayTaking Advil , Notes: PRNTaking Budesonide 3 MG Capsule Delayed Release Particles 1 Orally Once a day or once every other day for trouble swallowingTaking Budesonide 3 MG Capsule Delayed Release Particles 1 orally once daily or once every other day for trouble swallowingTaking Omeprazole 20 MG Capsule Delayed Release 1 Once a dayNot-Taking/PRNPepcid 40 MG Tablet 1 tablet Orally Once a day in the evening--take 1 hour before or after dinnerFamotidine 40 MG Tablet 1 tablet Orally QPMProAir HFA Budesonide Medication List reviewed and reconciled with the patientNot- Taking/PRN Pepcid 40 MG Tablet 1 tablet Orally Once a day in the evening--take 1 hour before or after dinnerNot-Taking/PRN Famotidine 40 MG Tablet 1 tablet Orally QPMNot- Taking/PRN ProAir HFA Not-Taking/PRN Budesonide Medication List reviewed and reconciled with the patient * Allergies:?N.K.D.A.yes[Aller gies Verified] Objective: * Vitals:?Wt: 192 lbs, Ht: 72. 5 in, BMI:25.68 Index, BP: 000/00 mm Hg, Temp: 98.6. * Examination: ???General Examination: ?GENERAL APPEARANCE:?pleasant, well nourished, well developed, in no acute distress.?EYES:?sclera non-icteric.?ORAL CAVITY:?mucosa moist.?NECK/THYROID:?no cervical lymphadenopathy, neck supple.?SKIN:?nonjaundiced, no spider angiomata..?HEART:?S1, S2 normal.?LUNGS:?clear to auscultation bilaterally.?ABDOMEN:?normal bowel sounds, no guarding or rigidity, no hepatosplenomegaly, no masses palpable, soft, nontender, nondistended..?EXTREMITIES:?no edema.?NEUROLOGIC:?alert and oriented.? Assessment: * Assessment: 1.?Dysphagia, unspecified ty pe - R13.10 (Primary)?2.?Eosinophilic esophagitis - K20.0?3.?Esophageal ring - K22.2?4.?History of adenomatous polyp of colon - Z86.010?5.?Encounter for screening for malignant neoplasm of colon - Z12.11? Overall, Jaren appears quite well. I did [...] to keep you advised of his progress. Plan: * Treatment: 2.?Eosinophilic esophagitis?Procedure: UPPER GI ENDOSCOPY BALLOOON DILATION OF ESOPH (Ordered for 2024)* with MACsched for 12/18/24 at 7:30 am 3.?Esophageal ring?Procedure: UPPER GI ENDOSCOPY BALLOOON DILATION OF ESOPH (Ordered for 2024)* with MACsched for 12/18/24 at 7:30 am 4.?History of adenomatous polyp of colon?Procedure: COLONOSCOPY (Ordered for 2024)* with MACsched for 12/18/24 at 7:30 ammiralax 5.?Encounter for screening for malignant neoplasm of colon?Procedure: COLONOSCOPY (Ordered for 2024)* with MACsched for 12/18/24 at 7:30 ammiralax Notes: Do not take aspirin on the morning of the procedures?? * Immunizations:? Influenza (Not administered - Refused: Patient decision) * Procedure Codes:?3017F COLOR ECTAL CA SCREEN DOC [id number] TOBACCO [id number] BP SCR NOT PRFRM REC REASON NOS * Preventive Medicine:? ??Counseling:?Care goal follow-up plan:?Above Normal BMI Follow-up?Giving encouragement to exercise,?BMI management provided?Yes.? * Follow Up:?prn * * Sign off status: Completed true * Provider:?Bowen Hull MD Date:? 025 Generated for Gaby riley/Luis Miguel/Sukhwinderitting on:?12/12/2024 06:25 PM EDT History and Physical Notes * HPI (History of Present Illness) Category Sub-Category Detail Notes Category Not es incontinence I saw Jaren in followup today in regard to his underlying history of eosinophilic esophagitis, history of gastroesophageal reflux with esophagitis, history of a distal esophageal ring, intermittent dysphagia, personal history of tubular adenoma of the colon, and need for colorectal cancer screening. I last saw Jaren in October of 2023. Since that time he has been feeling well. He did have a single episode of some rectal bleeding back in March but has not had any problems since that time. His bowel movements have been regular and without any sign of melena nor any further hematochezia. He does remain on daily omeprazole 20 mg and budesonide 3 mg every other day for the underlying reflux esophagitis and eosinophilic esophagitis, respectively. He does describe occasional episodes of dysphagia in which he will have to regurgitate the food, but this occurs less than once a month. He denies any significant heartburn, anorexia, early satiety, nausea, nor vomiting. He denies abdominal pain, jaundice, nor unintentional weight loss. Examination Category Sub-Category Detail Notes Category Not es General Examination GENERAL APPEARANCE: pleasant , well nourished, well developed, in no acute distress EYES: sclera non-icteric NECK/THYROID: no cervical lymphade nopathy, neck supple HEART: S1, S2 normal LUNGS: clear to auscultatio n bilaterally ABDOMEN: normal bowel sounds, no guarding or rigidity, no hepatosplenomegaly, no masses palpable, soft, nontender, nondistended. NEUROLOGIC: alert and oriented SKIN: nonjaundiced, no spi mitzy angiomata. EXTREMITIES: no edema ORAL CAVITY: mucosa moist
== END 2024-12-12 16:55 | disposition home or self-care (01) ==
LOC: HO.HMCH 15:32
PROVIDERS: PCP Internal Medicine; Visit Provider Internal Medicine
DX: R73.01 Impaired fasting glucose (principal); E78.00 Pure hypercholesterolemia, unspecified; K20.0 Eosinophilic esophagitis; J45.40 Moderate persistent asthma, uncomplicated; I25.10 Atherosclerotic heart disease of native coronary artery without angina pectoris; K21.00 Gastro-esophageal reflux disease with esophagitis, without bleeding; I34.1 Nonrheumatic mitral (valve) prolapse

== ENCOUNTER → 2024-12-12 15:31 | Outpatient (BNVA) | payer BC, OTHER, SELFPAY | PROVIDERS: PCP Internal Medicine; Visit Provider Internal Medicine ==

== ENCOUNTER 2025-06-04 08:39 | Outpatient (AMB) | payer BC, SELFPAY ==
--- OUTSIDE RECORDS SUMMARY | 2024-12-18 03:30 | XMS_ITS ---
Author Organization [facility] Address [address] [place] [address] Care Team Providers Care Head Mva Reactor Operator Name Role Phone Wai Hollis MD Primary Care Provider Bowen Gonzalez [phone] REASON FOR VISIT screening,hx polyps, eoisinophilic esophagitis,dysphagia, esophgeal ring Encounters Encounter Location Date Provider Diagnosis [facility] [place] [facility] [address] [place] [phone] 12/18/2024 Bowen Hull Plan Of Treatment Next Appt Details Provider Name:Bowen Lomax Della , 07/09/2025 10:20:00 AM, [address] [place] [address], [phone], Progress Notes * DANAE GRULLON EDOB:1970 (54 yo M)Acc No.[id number]:12/18/2024 EGD and COL/MAC Patient: DANAE FISHER Provider: Jim Hull MD :1970 A ge:54 Y S ex:Male Date:12/18/2024 Address:[address] [place] [address] Pcp:Wai Hollis MD Subjective: * Chief Complaints: [...] 12/18/2024 Generated for Gaby riley/Luis Miguel/Tanya on: 1 08:43 AM EDT
--- OUTSIDE RECORDS SUMMARY | 2025-03-12 03:30 | XMS_ITS ---
Author Organization [facility] Address [address] [place] [address] Care Team Providers Care Bending Shed Worker Name Role Phone Wai Hollis MD Primary Care Provider Bowen Gonzalez [phone] REASON FOR VISIT screening,hx polyps eoisinophilic esophagitis , dysphagia,esophageal ring Encounters Encounter Location Date Provider [place] [facility] [place] [address] [place] [phone] 03/12/2025 Bowen Hull Plan Of Treatment Next Appt Details Provider Name:Bowen Hull , 07/09/2025 10:20:00 AM, [address] [place] [address], [phone], Progress Notes * DANAE GRULLON EDOB:1970 (54 yo M)Acc No.[id number]:03/12/2025 EGD and COL/MAC Patient: Evelyn DANAE SANDOVAL Provider: Jim Hull MD :1970 A ge:54 Y S ex:Male Date:03/12/2025 Address:[address] [place], [place] [phone] Pcp:Wai Hollis MD Subjective: * Chief Complaints: [...] 03/12/2025 Generated for Gaby riley/Luis Miguel/Tanya on: 1 08:43 AM EDT
[2025-06-04 08:42] VITALS: BP 124/76; PULSE 75; O2SAT 98; BMI 27.3
--- NOTE | 2025-06-04 08:42 | MHC.PC.OV ---
Vital Signs 06/04/25 08:42 Height 5 ft 10 in Weight 190 lb BMI 27.3 BP 124/76 Blood Pressure Location Lt brachial Position Sitting Pulse 75 Pulse Source Pulse Oximeter Pulse Oximetry (%) 98 Oxygen Delivery Method Room Air Intake Visit Reasons: annual exam Allergies shellfish Allergy (Severe, Uncoded 06/04/25 08:43) Vomiting flu shot Adverse Reaction (Intermediate, Uncoded 06/04/25 09:13) shellfish allergy Medication List - Last Reconciled 06/04/25 by Wai Hollis MD albuterol sulfate 90 mcg/actuation 2 puffs inhalation Q6H PRN aspirin 81 mg PO DAILY atorvastatin 80 mg PO DAILY budesonide DR-ER 3 mg PO DAILY pzzehpohar-uazdmgyz-rbxanxwydf 160-9-4.8 mcg/actuation (Breztri Aerosphere) 2 inhalations inhalation BID 30 days ezetimibe 10 mg PO DAILY metoprolol succinate ER 25 mg PO DAILY multivitamin (One-A-Day Essential tablet) 1 tab PO DAILY nitroglycerin 0.4 mg sublingual Q5M PRN omeprazole 20 mg PO BID trazodone 50 mg PO DAILY Tobacco use date assessed: 12/12/24 Dental Screening Dental Screen Date: 12/12/24 [facility] Medical History Blood D-dimer assay positive Abnormal nuclear stress test Mitral valve prolapse Left bundle branch block Atypical chest pain Fracture of knee region Concussion Hx of upper gastrointestinal hemorrhage Elevated cholesterol GERD (gastroesophageal reflux disease) Anemia Asthma Myocardial infarction CAD (coronary artery disease) Surgical History (Updated 01/10/25 @ 07:56 by Brenda Ko) History of colonoscopy (~07/24/20) Hx of heart artery stent History of esophagogastroduodenoscopy (EGD) Family History (Updated 06/04/25 @ 08:57 by Wai Hollis MD) Mother No problems noted. Father Diabetes Sister No problems noted. Brother Throat cancer Cardiac arrest Son Pacemaker Maternal Grandfather Cardiac arrest Maternal Grandmother Cardiac arrest Social History Housing: House Alcohol intake: current Alcohol intake frequency: a few times a month Alcohol type: beer Comment: 2-3 x a week 2-3 beers Patient Tobacco Use Status: Never used Tobacco Tobacco use type: Cigarette e-Cigarette/Vaping Use: Never Used Second Hand Smoke Exposure: No service: No Current occupational status: employed Cognitive needs: No Hearing needs: No Vision needs: Yes (Glasses) Questionnaire PHQ-9 Over the last 2 weeks, how often have you been bothered by any of the following problems? 1. Little interest or pleasure in doing things: not at all 2. Feeling down, depressed, or hopeless: not at all 3. Trouble falling or staying asleep, or sleeping too much: not at all 4. Feeling tired or having little energy: not at all 5. Poor appetite or overeating: not at all 6. Feeling bad about yourself - or that you are a failure or have let yourself or your family down: not at all 7. Trouble concentrating on things, such as reading the newspaper or watching television: not at all 8. Moving or speaking so slowly that other people could have noticed. Or the opposite - being so fidgety or restless that you have been moving around a lot more than usual: not at all 9. Thoughts that you would be better off or of hurting yourself in some way: not at all Total score: 0 Depression Screening Interpretation: Negative Depression Screening Done: Yes Source: Developed by Drs. Bowen Jurado, Cyndie Lester, Imtiaz Silva and colleagues, with an educational deep from [employer]. Thrive Questionnaire Date Thrive assessed: 05/28/25 I am a: Patient What is your living situation today?: I have a steady place to live Within the past 12 months, did the food you bought not last and you didn't have the money to get more?: Never true Within the past 12 months, did you worry whether your food would run out before you got money to buy more?: Never true Do you have trouble paying for medicines?: No Do you have trouble getting transportation to medical appointments?: No Do you have trouble paying your heating and electricity bill?: No Do you have trouble taking care of your child, family member or friend?: No Do you have trouble with day-to-day activities such as bathing, preparing meals, shopping, managing finances, etc.?: No Are you currently unemployed and looking for a job?: No Are you interested in more education?: Yes Please select the resources that you would like help with: None Currently or been in a relationship where the following occur: No concerns reported THRIVE Score: 0 AUDIT C Alcohol Use Questionnaire (AUDIT-C) 1. How often do you have a drink containing alcohol?: 2-3 times a week 2. How many drinks containing alcohol do you have on a typical day when you are drinking?: 1 or 2 3. How often do you have six or more drinks on one occasion?: Never Total Score: 3 JAEL-7 AMB Questionnaire JAEL-7 Date JAEL - 7 assessed: 09/05/24 Feeling nervous, anxious, or on edge: 0 = Not at all Not being able to stop or control worryin = Not at all Worrying too much about different things: 0 = Not at all Trouble relaxin = Not at all Being so restless that it is hard to sit still: 0 = Not at all Becoming easily annoyed or irritable: 0 = Not at all Feeling afraid as if something awful might happen: 0 = Not at all Total JAEL-7 score (0-4 normal; 5-9 mild; 10-14 moderate; 15-21 severe): 0 Source: Developed by Drs. Bowen Jurado, Cyndie Lester, Imtiaz Silva and colleagues, with an educational deep from [employer]. JAEL-7 Assessment Billing JAEL-7 Assessment Tool: JAEL-7 Assessment 49452 Review of Systems Const Denies poor appetite and Denies weakness Eyes Denies no additional complaints ENT Reports Normal hearing present, Denies dizziness, Denies nasal congestion, Denies tinnitus and Denies sore throat Card Denies chest pain, Denies syncope, Denies rapid heart rate and Denies dyspnea Resp Denies cough and Denies dyspnea GI Denies change in stool character, Reports constipation, Denies diarrhea, Denies nausea and Denies vomiting Denies dysuria and Denies urinary frequency Neuro Reports Normal hearing present, Denies confusion, Denies dizziness, Denies syncope and Denies weakness Psych Denies confusion Physical exam (Primary Care) Vital Signs: Last Vital Signs Pulse 75 06/04/25 08:42 BP 124/76 06/04/25 08:42 Pulse Ox 98 06/04/25 08:42 Oxygen Delivery Method Room Air 06/04/25 08:42 BMI result Body Mass Index 27.3 Tobacco/Smoking Status: Tobacco use Status Tobacco use date assessed 12/12/24 06/04/25 08:47 Patient Tobacco Use Status Never used Tobacco 06/04/25 08:47 Tobacco use type Cigarette 06/04/25 08:47 e-Cigarette/Vaping Use Never Used 06/04/25 08:47 PHQ-9: PHQ-9 Score PHQ-9: Total score 0 06/04/25 08:47 Depression Screening Interpretation: Negative Thrive Assessment: Date of Thrive Assessment Date Thrive assessed 05/28/25 06/04/25 08:47 Currently or been in a relationship where the following occur: No concerns reported Const General: No confusion Orientation/consciousness: No confusion HENMT Head: Yes normocephalic Ears: external ears normal and TM's normal bilaterally Face and sinus: Yes normal facial exam Mouth: moist mucous membranes Throat: Yes tonsils normal Eyes Conjunctivae: conjunctivae normal Pupils: Equal, round and reactive pupils present and Pupil accommodation reflex normal Direct Ophthalmoscopy: normal light reflex Neck Neck: No lymphadenopathy Thyroid: Thyroid normal Chest Chest palpation & inspection: normal inspection of the chest Resp Effort & Inspection: normal respiratory effort and no audible wheezes Auscultation: clear to auscultation bilaterally, no crackles, no wheezes and lung sounds not diminished Cardio Rate: regular rate Rhythm: regular rhythm Peripheral pulses: radial pulses present and dorsalis pedis present GI Palpation (GI): no masses Auscultation: normal bowel sounds and normoactive bowel sounds Rectal Exam - Male: Yes deferred Skin General skin exam: no rashes or lesions noted Rashes: no rashes Neuro General: No confusion Cranial nerves: Yes Equal, round and reactive pupils present and Yes Normal hearing present Cognition (Neuro): normal cognition Gait exam (Neuro): Normal gait present Motor exam (neuro): 5/5 motor strength present throughout Deep tendon reflexes (DTR's): Right brachioradialis reflex intensity grade: 2+, Left brachioradialis reflex intensity grade: 2+, Right patellar reflex intensity grade: 2+ and Left patellar reflex intensity grade: 2+ Extrem General: No edema Coding Level of Care Code Est Pt Prev Care 40-64y(32180) Diagnoses Annual physical exam Z00.00 Moderate persistent asthma without complication J45.40 Asthma severity: moderate Asthma persistence: persistent Asthma complication type: uncomplicated Gastroesophageal reflux disease with esophagitis without hemorrhage K21.00 Esophagitis presence: with esophagitis Esophagitis bleeding: without hemorrhage Impaired fasting blood sugar R73.01 Coronary artery disease involving [place] coronary artery of [place] heart without angina pectoris I25.10 Coronary Disease-Associated Artery/Lesion type: [place] artery [place] vs. transplanted heart: [place] heart Associated angina: without angina Elevated cholesterol E78.00 Additional Codes JAEL-7 Assessment Billing - JEAL-7 Assessment Tool: JAEL-7 Assessment [id number] ([id number]) Assessment & Plan Assessment & Plan (1) Annual physical exam: Code(s): Z00.00 - Encounter for general adult medical examination without abnormal findings Category: Medical Plan: Patient is advised to eat healthy, keep well hydrated, keep active and have adequate sleep. (2) Asthma: Comment: Moderate persistent Code(s): J45.909 - Unspecified asthma, uncomplicated Category: Medical Qualifiers: Asthma severity: moderate Asthma persistence: persistent Asthma complication type: uncomplicated Qualified Code(s): J45.40 - Moderate persistent asthma, uncomplicated Plan: On albuterol inhaler and Breztri (3) GERD (gastroesophageal reflux disease): Code(s): K21.9 - Gastro-esophageal reflux disease without esophagitis Category: Medical Qualifiers: Esophagitis presence: with esophagitis Esophagitis bleeding: without hemorrhage Qualified Code(s): K21.00 - Gastro-esophageal reflux disease with esophagitis, without bleeding Plan: Avoid the foods that causes that usually spicy foods, tomato products, juices, coffee, soda and foods that your sensitive to. After eating do not lie down, allow 3-4 hours before in lie down. And keep the head of bed above 30 degrees to avoid the acid from going up. (4) Impaired fasting blood sugar: Code(s): R73.01 - Impaired fasting glucose Category: Medical Plan: Decrease the amount of carbohydrate intake, pasta, bread, rice and potatoes are all sugar and that is aside from all the sweet stuff, remember that fruits are good but they are Sweet also. (5) CAD (coronary artery disease): Comment: CLAUDIA to proximal LAD 2015 Code(s): I25.10 - Atherosclerotic heart disease of [place] coronary artery without angina pectoris Category: Medical Qualifiers: Coronary Disease-Associated Artery/Lesion type: [place] artery [place] vs. transplanted heart: [place] heart Associated angina: without angina Qualified Code(s): I25.10 - Atherosclerotic heart disease of [place] coronary artery without angina pectoris Plan: Control the cholesterol, weight, blood pressure, continue with aspirin. Blood work requested (6) Elevated cholesterol: Code(s): E78.00 - Pure hypercholesterolemia, unspecified Category: Medical Plan: Avoid fried foods, chicken skin, eggs, butter margarine, pastries and meat. Be it pork or beef they have a lot of cholesterol LDL goal of less than 70 and triglyceride of less than 150, patient is on Zetia 10 mg once a day enterovirus and atorvastatin 80 mg once a day Plan History of Present Illness The patient is a 54-year-old male presenting for a wellness visit and management of chronic conditions. The patient has a history of coronary artery disease and is currently on aspirin therapy. His last echocardiogram in August 2024 showed a normal left ventricular ejection fraction with mild prolapse of the posterior mitral leaflet and mild to moderate mitral regurgitation. He has a family history of cardiac issues, including a brother who of cardiac arrest and a son with a pacemaker. The patient has gastroesophageal reflux disease (GERD) and eosinophilic esophagitis with a history of esophageal stricture. He is on omeprazole twice daily and is scheduled to see a digital design engineer in June for a colonoscopy and upper endoscopy. He reports no current issues with swallowing but acknowledges a history of stricture. The patient has asthma, for which he uses an albuterol inhaler as needed. He reports minimal use since starting another medication. He has hypercholesterolemia and is on atorvastatin 80 mg and Zetia 10 mg daily. His LDL cholesterol was 42 mg/dL as of March 2024. The patient has impaired glucose tolerance and is advised to monitor his blood sugar levels regularly. He reports knee pain and sciatica, which sometimes wakes him from sleep. He finds relief with stretching exercises and [id number]-chscojk pain medication. 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 - Family status: Recently going through a divorce - Substance use: Consumes alcohol a couple of times a week, denies tobacco and recreational drug use Review of Systems - Cardiovascular: Denies chest pain, orthopnea, or syncope - Respiratory: Denies dyspnea, cough, or wheezing - Gastrointestinal: Denies nausea, vomiting, or dysphagia - Neurological: Reports sciatica pain, denies dizziness or headaches - Genitourinary: Denies dysuria, reports nocturia 2-3 times per night Physical Exam General: Cooperative, healthy appearing, comfortable, no acute distress and well developed Orientation: Patient oriented x3 Limitations: No limitations Head: Normal to inspection Ears: Hearing grossly normal bilaterally Nose: Normal external nose present Face and sinus: Normal facial exam Eyes: Appearance normal, both eyes and all related structures Neck: Normal visual inspection and Yes full ROM Respiratory: Normal respiratory effort and able to speak in complete sentences. Clear to auscultation bilaterally Cardiovascular: Regular rate and rhythm. Normal S1 and S2 GI: Normal to inspection. Soft to palpation and nontender Skin: No rashes or lesions noted Neuro: Patient oriented x3 Extremities: Normal to inspection, but reports tenderness and pain related to sciatica, particularly on the right side, which sometimes wakes the patient from sleep. No other abnormalities noted. Results - Labs: LDL cholesterol 42 mg/dL as of March 2024 - Imaging: Echocardiogram in August 2024 showed normal LV ejection fraction, mild prolapse of the posterior mitral leaflet, mild to moderate mitral regurgitation Plan Patient was informed and verbally consented to the use of an ambient scribe for clinic note documentation during this visit. 1. Coronary Artery Disease The patient will continue aspirin therapy and regular monitoring of cardiac function. A follow-up echocardiogram is scheduled for August to assess the mitral valve prolapse and regurgitation. 2. Gastroesophageal Reflux Disease (Gerd) The patient is advised to continue omeprazole twice daily and follow up with a digital design engineer in June for further evaluation and management. 3. Asthma The patient is to continue using the albuterol inhaler as needed, with minimal usage reported since starting another medication. 4. Eosinophilic Esophagitis The patient is scheduled for an upper endoscopy in June to evaluate the esophageal stricture and eosinophilic esophagitis. 5. Hypercholesterolemia The patient is to continue atorvastatin 80 mg and Zetia 10 mg daily, with regular monitoring of lipid levels. 6. Impaired Glucose Tolerance The patient is advised to monitor blood glucose levels regularly and maintain a healthy diet and exercise regimen. 7. Sciatica The patient is advised to continue stretching exercises and use [id number] pain medication as needed. Physical therapy is suggested if symptoms persist. Discussion Notes During the visit, we discussed the management of the patient's chronic conditions, including coronary artery disease, GERD, asthma, and hypercholesterolemia. The importance of regular follow-ups and monitoring was emphasized, particularly for cardiac function and lipid levels. We also reviewed the patient's upcoming appointments with specialists and the need for continued medication adherence. The patient was advised on lifestyle modifications to manage impaired glucose tolerance and sciatica. Follow-up appointments and necessary blood work were scheduled to ensure comprehensive care. Patient Instructions - Continue taking all prescribed medications as directed. - Schedule and attend all follow-up appointments, including the digital design engineer visit in June. - Monitor blood glucose levels regularly and maintain a healthy diet and exercise regimen. - Perform stretching exercises for sciatica and use [id number] pain medication as needed. - Attend scheduled blood work for fasting lipid panel and glucose monitoring. Orders: Orders Comprehensive Met. Panel Today I25.10 - Atherosclerotic heart disease of [place] coronary artery without angina pectoris Free T4 (Free Thyroxine) Today I25.10 - Atherosclerotic heart disease of [place] coronary artery without angina pectoris Hemoglobin A1c Today I25.10 - Atherosclerotic heart disease of [place] coronary artery without angina pectoris Lipid Panel Today E78.00 - Pure hypercholesterolemia, unspecified, I25.10 - Atherosclerotic heart disease of [place] coronary artery without angina pectoris Prostate Specific Antigen Scr Today I25.10 - Atherosclerotic heart disease of [place] coronary artery without angina pectoris Vitamin B12 and Folate Today I25.10 - Atherosclerotic heart disease of [place] coronary artery without angina pectoris UA w Microscopic Today I25.10 - Atherosclerotic heart disease of [place] coronary artery without angina pectoris Complete Blood Count Auto Diff Today I25.10 - Atherosclerotic heart disease of [place] coronary artery without angina pectoris Thyroid Stimulating Hormone Today I25.10 - Atherosclerotic heart disease of [place] coronary artery without angina pectoris Magnesium Today K21.00 - Gastro-esophageal reflux disease with esophagitis, without bleeding
--- OUTSIDE RECORDS SUMMARY | 2025-06-04 08:43 | XMS_ITS | Patient Health Record ---
Author Organization [facility] Address [address] [place] [address] Care Team Providers Care Manager Of Exhibitions And Collections Name Role Phone Wai Hollis MD Primary Care Provider Bowen Gonzalez Unavailable [phone] Allergies No Known Allergies Reason For Referral Referring Provider First Name Wai Referring Provider Last Name Po Referring Provider Speciality Internal M edicine Referred Organization [facility] Referred Provider Bowen Trevino Referred Address [address],[place], [place],[address], Referred Provider Specialty Gastroentero logy General Notes Celine Nair 024 03:14:38 PM EST > requested an [facility] referral from Dr. Hollis's office for visit with Dr. Trevino on 2024 (said 07-18-24) [phone] Referral Priority Routine Referring Provider First Name Wai Referring Provider Last Name Bunny Referring Provider Speciality Internal M edicine Referred Organization [facility] Referred Provider Bowen Trevino Referred Address [address] [place] [address], [address],[place], [place],[address], Referred Provider Specialty Gastroentero logy General Notes Celine Nair 2024 11:28:27 AM >REQUESTED NEW REFERRAL FOR THE PATIENT'S COLON AND EGD WITH DR TREVINO ON 07-09-25 Referral Priority Routine Medications Medication SIG (Take, Route, Frequency, Duration) Notes Start Date End Date Status Aspirin Low Dose 81 MG 1 tablet Orally Once a day Active Ezetimibe 10 MG 1 tablet Orally Once a day Cholesterol Active Metoprolol Succinate 25 MG 1 capsule Orally Once a day Active Advil PRN Active Omeprazole 20 MG 1 Once a day Active [place] Benzoyl Peroxide Active Pepcid 40 MG 1 tablet Orally Once a day in the evening--take 1 hour before or after dinner; Duration: 30 Not-Taking Dulera 100-5 MCG/ACT 2 puffs Inhalation Twice a day Active Famotidine 40 MG 1 tablet Orally QPM; Duration: 30 day(s) 06/30/2016 Not-Taking Atorvastatin Calcium 80 MG 1 tablet Orally Once a day Active ProAir HFA Not-Takin g Nitroglycerin 0.4 MG as directed Sublingual prn Active Budesonide Not-Takin g Budesonide 3 MG TAKE 1 CAPSULE ONCE DAILY OR ONCE EVERY OTHER DAY FORTROUBLE SWALLOWING; Duration: 90 Active Immunizations Vaccine Route Administration Date Status [...] W/U Status Risk Notes Problem Rectal bleeding (47936882) Rectal bleeding (K62.5) Active confirmed Problem Screening for malignant neoplasm of colon (206364919) Encounter for screening for malignant neoplasm of colon (Z12.11) Active confirmed Problem History of adenomatous polyp of colon (657120998) History of adenomatous polyp of colon (Z86.010) Active confirmed Problem Eosinophilic esophagitis (701939881) Eosinophilic esophagitis (K20.0) Active confirmed Problem Gastrointestinal hemorrhage (61485961) UGI bleed (K92.2) Active confirmed Problem Erosive esophagitis (68639613) Erosive esophagitis (K22.10) Active confirmed Problem Esophageal ring (58124950) Esophageal ring (K22.2) Active confirmed Problem Iron deficiency anemia (47727086) Iron deficiency anemia, unspecified iron deficiency anemia type (D50.9) Active confirmed Problem Dysphagia (53823562) Dysphagia, unspecified type (R13.10) Active confirmed Problem Acute gastric ulcer without hemorrhage, without perforation AND without obstruction (54255646) Esophagogastric ulcer, acute (K25.3) Active confirmed Problem Bleeding ulcer of esophagus (32409390) Esophageal ulcer with bleeding (K22.11) Active confirmed Vital Signs Temperature 98.6 degrees Fahrenheit 2024 Blood pressure diastolic 00 mm Hg 2024 Height 72.5 in 2024 Blood pressure systolic 000 mm Hg 2024 Weight 192 lbs 2024 BMI 25.68 kg/m2 2024 Encounters Encounter Location Date Provider Diagnosis [facility] [address] [place] [id number] 2024 Bowen Trevino Dysphagia, unspecifi ed type R13.10 ; Eosinophilic esophagitis K20.0 ; Esophageal ring K22.2 ; History of adenomatous polyp of colon Z86.010 and Encounter for screening for malignant neoplasm of colon Z12.11 [facility] [address] [place] [phone] 11/17/2024 Bowen Trevino [facility] [address] [place] [phone] 03/07/2025 Bowen Trevino Assessments Encounter Date Diagnosis (ICD Code) Assessment [...] 2024 Esophageal ring (ICD-10 - K22.2) Overall, Jarne appears quite well. I did recommend a [...] COLONOSCOPY 2024 Next Appt Details Provider Name:Bowen Trevino , 07/09/2025 10:20:00 AM, [address] [place] [address], [phone], Insurance Providers Payer Name Payer Address Payer Phone Subscriber Number Group Number Insured Name Patient Relationship to Insured Coverage Start Date Coverage End Date [facility] [employer] [address] [place] [address] [id number] JAREN GRULLON Self - patient is the insured Medical (General) History Medical History History ICD Code Asthma GERD Eosinophilic esophagitis-thi s was originally diagnosed by Dr. Ethan Schreiber in 2005-he was treated with oral Cromolyn and Flovent without any relief--he has subsequently been treated with oral budesonide with good results Distal esophageal ring at the gastroesop hageal junction as described below Denies [place],DM,CVA,renal disease EGD in 03/2012--this revealed a small [...]
--- OUTSIDE RECORDS SUMMARY | 2025-06-04 08:44 | XMS_ITS | Clinical Summary ---
Author Organization [facility] Address [address] [place] [phone] Phone Care Team Providers Care Tin Flipper Name Role Phone Bar King MD Unavailable [phone] Asha Eastman PA-C Unavailable [phone] Unknown, Unknown Primary Care Provider Kd lable Allergies Active Allergy Reactions Criticality Noted Date Comments Shellfish Containing Products 2021 Medications aspirin 81 MG EC tablet 1 tablet Active atorvastatin (LIPITOR) 80 MG tablet 1 tablet Active budesonide (ENTOCORT EC) 3 mg 24 hr capsule Act guera ezetimibe (ZETIA) 10 mg tablet 1 tablet Active omeprazole (PRILOSEC) 20 MG capsule 1 capsule Active diclofenac sodium (VOLTAREN) 75 MG EC tablet Take 1 tablet (75 mg total) by mouth 2 (two) times a day. 60 tablet 1 3 Active fluticasone propion-salmetero L (ADVAIR HFA) 45-21 mcg/actuation inhaler Inhale 2 puffs into the lungs 2 (two) times a day. 12 g 2 3 Active azithromycin (ZITHROMAX Z-JOSHUA) 250 MG tablet Take 2 tablets on day 1 followed by 1 tablet daily for 4 days 6 tablet 3 Active dextromethorphan- guaiFENesin (TUSSIN-DM MAX) 10-200 mg/5 mL liquid Take 5 mL by mouth every 4 (four) hours as needed. 420 mL 3 Active traZODone (DESYREL) 50 MG tabletIndications :Primary insomnia TAKE 1 TABLET BY MOUTH EVERYDAY AT BEDTIME 90 tablet 1 3 Active sildenafiL (VIAGRA) 50 mg tablet TAKE 1 TABLET(50 MG) BY MOUTH DAILY NEEDED 90 tablet 4 Active albuterol 90 mcg/actuation inhalerIndication s:Moderate persistent asthma without complication INHALE 2 PUFFS BY MOUTH AND INTO THE LUNGS EVERY 6 HOURS IF NEEDED FOR WHEEZING STRENGTH 8 g 1 4 Active Active Problems Problem Noted Date Diagnosed Date Eosinophilic esophagitis 07/28/2022 Esophageal ring 07/28/2022 Chronic cough 05/20/2022 Assessment & Plan (05/20/2022 10:21 AM EDT): Jaren has an ongoing cough despite taking his inhalers. I wrote for a prednisone burst to treat post reactive airway disease. He will call if things get worse or if there are any other issues or concerns. He understands and agrees. Acute mucoid otitis media of right ear Assessment & Plan (05/20/2022 10:22 AM EDT): Jaren continues to have right ear pain. He only had minimal improvement with the Z-Joshua. I wrote a prescription for Augmentin-to be taken as directed. He will call if there are any other issues or concerns. He understands and agrees. Assessment & Plan (05/15/2022 9:23 AM EDT): Jaren was diagnosed with a right ear infection I treated him with azithromycin today-to be taken as directed. I also gave him guidance regarding symptomatic management. He will call if there are any other issues or concerns. He understands and agrees. Acute cough 05/15/2022 Assessment & Plan (05/15/2022 9:24 AM EDT): Jaren presents for cough-likely bronchitis. Guidance given regarding symptomatic management. I also treated him with a Z-Joshua for a right ear infection. He will call if there are any other issues or concerns. He understands and agrees. Cervical radiculopathy 03/16/2022 Assessment & Plan (03/16/2022 9:56 AM EDT): I diagnosed Jaren with a left-sided cervical radiculopathy today in the office. I gave him prescription for prednisone-to be taken in the mornings and guidance given. And I also advised him of heat, plenty of fluids, and to start on some exercises that I gave him in the office today. I put a referral to physical therapy as well. I informed him to call if things get worse or if they change or if there are any other issues or concerns-at which point I would get image studies. He understands and agrees. Moderate persistent asthma without complication 08/26/2021 Lymphopenia 07/19/2020 Low iron 07/19/2020 Bruising 03/12/2020 Assessment & Plan (03/12/2020 11:10 AM EDT): Jaren has been experiencing more bruising over the past couple weeks. These are specifically in his extremities. He denies any recent fall or trauma however. I reviewed his previous labs and I noted that his CBC showed an H&H on the lower side however within normal limits. I also reviewed his liver enzymes which seem to be elevated consistently. I will obtain blood work today and I will update him with the results of this. I advised him to improve his diet, decrease alcohol intake, and to get blood work done today and I will update him with the results. I informed him if the bruising gets worse or if he notes any blood in the stool to call. He does state that he will be seeing GI next month for follow-up. He understands and agrees with this plan. Poor dentition 09/29/2019 Primary insomnia 09/29/2019 Hyperlipidemia 08/03/2017 Anxiety disorder 08/03/2017 Asthma 08/03/2017 Assessment & Plan (04/01/2018 9:47 AM EDT): Jaren has asthma and he is well managed on his medication. He was given refills of his Advair and his albuterol inhaler. He will take them as directed. He will call if there is any other issues. He understands and agrees. Eosinophilic gastritis 08/03/2017 Headache 08/03/2017 Ischemic heart disease 08/03/2017 Left bundle branch block 08/03/2017 Immunizations Immunization Administration Dates Next Due COVID-19 (Pre-06/14) Pfizer Vaccine, mRNA, PF 11/22/2020,10/31/2020 DTP 09/22/1976, 3,01/05/1972,11/16,1971 INFLUENZA, SPLIT VIRUS, TRIVALENT PF 04/13/2016, 06/03/2015 INFLUENZA, SPLIT VIRUS, TRIV ALENT W/ PRESERVATIVE IM 04/13/2016,06/03/2015,05/10/2014 Influenza Quadrivalent Prese rvative Free IM 07/28/2022,07/25/2021,07/01/2011 Influenza trivalent preserva tive free intradermal 06/20/2013,04/22/2012 Influenza, Unspecified Formulation 04/22/2012,,07/01/2010 MMR 06/23/1983,09/02/1974,08/18/1972 Pneumococcal conjugate PCV13 05/21/2016 Pneumococcal polysaccharide PPSV23 05/21/2016, Polio - OPV 09/22/1976, 3,01/05/1972,11/16,1971 Td (adult) 5 Lf Tetanus Toxo id, PF, Adsorbed 05/18/2007 Td, unspecified formulation 09/29/2016 Varicella 05/26/1975 Family History Medical History Relation Comments Cancer Brother Relation Status Comments Brother Social History Tobacco Use Types Packs/Day Years Used Date Smoking Tobacco: Never Smokeless Tobacco: Never Tobacco Cessation:Counseling Given: Not Answered Child or Family Care Answer Date Record ed Do you have problems with on e of the following making it difficult for you to work, study, or receive health care? No 07/25/2021 Education Answer Date Recorded Are you interested in more education? Not on yo e 07/28/2023 Are you concerned about learning? Not on file 07/28/2023 No 07/28/2023 No 07/28/2023 Food Answer Date Recorded Within the past 6 months we worried whether our food would run out before we got money to buy more. Never True 07/25/2021 Within the past 6 months the food we bought just didn't last and we didn't have enough money to get more. Never True Residential Stability Answer Date Recor ded What is your housing situation today? I have timo negron 07/25/2021 How many times have you move d in the past 12 months? Zero (I did not move) 07/25/2021 Paying for Meds Answer Date Recorded Do you have trouble paying for medicines? No 07/25/2021 Paying Utility Bills Answer Date Record ed Do you have trouble paying your heating or elect ricity bill? No 07/25/2021 Transportation Answer Date Recorded Has the lack of transportati on kept you from medical appointments or from getting medications? No 07/25/2021 Unemployment Answer Date Recorded Are you currently unemployed or working on a part-time or temporary basis, and looking for work? No 07/25/2021 Digital Access Answer Date Recorded No 01/12/2023 No 01/12/2023 Reliable internet access at home? Not on file 01/12/2023 Device with a working camera? Not on file Sex and Gender Information Value Date Recorded Sex Assigned at Male 03/17/2020 6:48 PM EDT Legal Sex Male 9:33 PM EDT Gender Identity Male 03/17/2020 6:48 PM EDT Sexual Orientation Straight 03/17/2020 6: 48 PM EDT Last Filed Vital Signs Vital Sign Reading Time Taken Comments Blood Pressure 116/74 01/12/2023 8:14 AM EDT Pulse 73 01/12/2023 8:14 AM EDT Temperature 36.1 C (96.9 F) 01/12/2023 8:14 AM EDT Respiratory Rate - - Oxygen Saturation 97% 01/12/2023 8:14 AM EDT Inhaled Oxygen Concentration - - Weight 81.6 kg (180 lb) 01/12/2023 8:14 AM EDT Height 182.9 cm (6') 01/12/2023 8:14 AM EDT Body Mass Index 24.41 01/12/2023 8:14 AM EDT Plan of Treatment Health Maintenance Due Date Last Done Comments COLOGUARD 2016 COLONOSCOPY 2016 COLORECTAL CANCER SCREENING 2016 FIT TEST 2016 FOBT 2016 SIGMOIDOSCOPY 2016 VIRTUAL COLONOSCOPY 2016 PNEUMOCOCCAL VACCINES (50+ years) (3 of 3 - PCV20 or PCV21) 2021 05/21/2016, 05/21/2016, 07/04/2008 RSV VACCINE (1 - Risk 50-74 years 1-dose series) 2021 ZOSTER VACCINES (1 of 2) 2021 DEPRESSION SCREENING 07/28/2023 07/28/2022 INFLUENZA VACCINE (#1) 2025 , 07/25/2021, 04/13/2016, Additional history exists COVID-19 VACCINE (3 - season) 2025 11/22/2020, 10/31/2020 LIPID PANEL 07/25/2026 07/25/2021, 10/2020, 09/29/2019, Additional history exists Adult Td,Tdap Booster 09/29/2026 09/29/2016, 007 HEPATITIS C SCREENING Completed 07/22/2020, 020 HIV ONE-TIME SCREENING (18-65 YEARS) Completed 07/22/2020 SMOKING STATUS SCREENING (Once After 26 Yrs) Completed 02/03/2023 HEPATITIS A VACCINES Aged Out No long er eligible based on patient's age to complete this topic HIB VACCINES Aged Out No longer eligi ble based on patient's age to complete this topic MENINGOCOCCAL VACCINES (ACWY) Aged Out No longer eligible based on patient's age to complete this topic MENINGOCOCCAL VACCINES (B) Aged Out N o longer eligible based on patient's age to complete this topic Medical Devices Not on file Procedures Procedure Name Priority Date/Time Associated Diagnosis Comments LIPID PANEL Routine 07/25/2021 9:14 AM EST Mixed hyperlipidemia HEPATITIS C ANTIBODY, QUALITATIVE Routine 07/22/2020 10:24 AM EST Lymphopenia from Last 3 Months or Most Recently Relevant to Health Maintenance Results * (ABNORMAL) Lipid panel (07/25/2021 9:14 AM EST) HDL 40 mg/dL [facility] Comment: Interpretation <40 mg/dL: Low HDL cholesterol (major risk factor for CHD) Greater than or equal to 60 mg/dL: High HDL cholesterol ( negative risk factor for CHD) HDL - cholesterol is affected by a number of factors, e.g. smoking, excerise, hormones, sex and age. CHOLESTEROL 103 0 - 240 mg/dL [facility] TRIGLYCERIDES 73 30 - 160 mg/dL [facility] LDL 48(L) 50 - 129 mg/dL [facility] Comment: LDL levels in terms of risk for coronary heart disease: <100 mg/dL: Optimal 100-129 mg/dL: Near or above optimal 130-159 mg/dL: Borderline high 160-189 mg/dL: High >190 mg/dL: Very High CARDIAC RISK RATIO 2.6(L) 3.4 - 5.0 [facility] Blood 07/25/2021 9:14 AM EST 07/25/2021 9:17 AM EST Bar King MD LAB BLOOD ORDERABLES Final Re sult Performing Organization Address [facility] Co de Phone Number [address] [address] * Hepatitis C antibody, qualitative (07/22/2020 10:24 AM EST) HCV NON-REACTIV E NON-REACTI VE [facility] Blood 07/22/2020 10:2 4 AM EST 07/22/2020 10:27 AM EST Asha Eastman PA-C LAB BLOOD ORDERABLES Final Result Performing Organization Address [facility] Co de Phone Number [address] [address] from Last 3 Months or Most Recently Relevant to Health Maintenance Insurance [facility] [place] [address] [place] [address] [place] [address] [place] [address] Member Subscriber Plan / Payer (Ef fective 2021-) Name:Jaren Mcneill Relation to Subscriber:Self Name:Jaren Mcneill Payer ID:[id number] (NAIC) Type:HMO Address: [address] [place], [place] [facility] [employer] Care Teams Tin Flipper Relationship Specialty Start Date End Date Unknown, Unknown, MD PCP - General 11/18/23 Bar King MD [address] [place] [address], [address] [place] [address] Historical LMR Provider 06/12/17 Asha Eastman PA-C [address] [place] [id number] Hematology 07/10/20 Additional Source Comments The information contained in this document represents components of the legal health record. It is not the complete legal health record.[facility]
== END 2025-06-04 09:14 | disposition home or self-care (01) ==
LOC: HO.HMCH 08:40
PROVIDERS: PCP Internal Medicine; Visit Provider Internal Medicine
DX: Z00.00 Encounter for general adult medical examination without abnormal findings (principal); J45.40 Moderate persistent asthma, uncomplicated; K21.00 Gastro-esophageal reflux disease with esophagitis, without bleeding; R73.01 Impaired fasting glucose; I25.10 Atherosclerotic heart disease of native coronary artery without angina pectoris; E78.00 Pure hypercholesterolemia, unspecified

== ENCOUNTER → 2025-06-04 08:39 | Outpatient (BNVA) | payer BC, SELFPAY | PROVIDERS: PCP Internal Medicine; Visit Provider Internal Medicine | DX: Z00.00 Encounter for general adult medical examination without abnormal findings (principal); J45.40 Moderate persistent asthma, uncomplicated; K21.00 Gastro-esophageal reflux disease with esophagitis, without bleeding; R73.01 Impaired fasting glucose; I25.10 Atherosclerotic heart disease of native coronary artery without angina pectoris; E78.00 Pure hypercholesterolemia, unspecified | CPT/HCPCS: 96127 ==

== ENCOUNTER 2025-06-25 06:29 | Outpatient (REF) | payer BC, SELFPAY ==
--- OUTSIDE RECORDS SUMMARY | 2024-12-18 02:30 | XMS_ITS ---
Author Organization [facility] Address [address] [place] [address] Care Team Providers Care Alto Singer Name Role Phone Wai Hollis MD Primary Care Provider Bowen Gonzalez [phone] REASON FOR VISIT screening,hx polyps, eoisinophilic esophagitis,dysphagia, esophgeal ring Encounters Encounter Location Date Provider Diagnosis [facility] [address] [place] [phone] 12/18/2024 Bowen Hull Plan Of Treatment Next Appt Details Provider Name:Bowen Lomax Della , 07/09/2025 10:20:00 AM, [address] [place] [address], [phone], Progress Notes * DANAE GRULLON EDOB:1970 (54 yo M)Acc No.[id number]:12/18/2024 EGD and COL/MAC Patient: DANAE FISHER Provider: Jim Hull MD :1970 A ge:54 Y S ex:Male Date:12/18/2024 Address:[address] [place] [address] Pcp:Wai Hollis MD Subjective: * Chief Complaints: * 1 . Screening,hx polyps, eoisinophilic esophagitis,dysphagia, esophgeal ring. * Medical History: Objective: * Vitals: Assessment: Plan: * Treatment: * * The named appointment provid er may or may not be the originator of this progress note, and it is not deemed complete until electronically signed by the appointment provider. Sign off status: Pending * Provider: Jim Hull MD Date: 0 12/18/2024 Generated for Gaby riley/Luis Miguel/Tanya on: 08/25/2024 06:32 AM EST
--- OUTSIDE RECORDS SUMMARY | 2025-03-12 02:30 | XMS_ITS ---
Author Organization [facility] Address [address] [place] [address] Care Team Providers Care Hadoop Infrastructure Architect Name Role Phone Wai Hollis MD Primary Care Provider Bowen Gonzalez [phone] REASON FOR VISIT screening,hx polyps eoisinophilic esophagitis , dysphagia,esophageal ring Encounters Encounter Location Date Provider Diagnosis [facility] [place] [address] [place] [phone] 03/12/2025 Bowen Hull Plan Of Treatment Next Appt Details Provider Name:Bowen Hull , 07/09/2025 10:20:00 AM, [address] [place] [address], [phone], Progress Notes * DANAE GRULLON EDOB:1970 (54 yo M)Acc No.[id number]:03/12/2025 EGD and COL/MAC Patient: Evelyn DAANE SANDOVAL Provider: Jim Hull MD :1970 A ge:54 Y S ex:Male Date:03/12/2025 Address:[address] [place], [place] [phone] Pcp:Wai Hollis MD Subjective: * Chief Complaints: * 1 . Screening,hx polyps eoisinophilic esophagitis , dysphagia,esophageal ring. * Medical History: Objective: * Vitals: Assessment: Plan: * Treatment: * * The named appointment provid er may or may not be the originator of this progress note, and it is not deemed complete until electronically signed by the appointment provider. Sign off status: Pending * Provider: Jim Hull MD Date: 0 03/12/2025 Generated for Gaby riley/Luis Miguel/Tanya on: 08/25/2024 06:31 AM EST
--- OUTSIDE RECORDS SUMMARY | 2025-06-25 06:32 | XMS_ITS | Patient Health Record ---
Author Organization [facility] Address [address] [place] [address] Care Team Providers Care Adaptive Physical Education Specialist Name Role Phone Wai Hollis MD Primary Care Provider Bowen Gonzalez Unavailable [phone] Allergies No Known Allergies Reason For Referral Referring Provider First Name Wai Referring Provider Last Name Po Referring Provider Speciality Internal M edicine Referred Organization [facility] Referred Provider Bowen Trevino Referred Address [address],[place], [place],[address], Referred Provider Specialty Gastroentero logy General Notes Celine Nair 024 03:14:38 PM EST > requested [facility] referral from Dr. Hollis's office for visit with Dr. Trevino on 2024 (said 07-18-24) [phone] Referral Priority Routine Referring Provider First Name Wai Referring Provider Last Name Bunny Referring Provider Speciality Internal M edicine Referred Organization [facility] Referred Provider Bowen Trevino Referred Address [address] [place] [address], [address],[place], [place],[address], Referred Provider Specialty Gastroentero logy General Notes [...] 20 MG 1 Once a day Active [place] Benzoyl Peroxide Active Pepcid 40 MG 1 [...] W/U Status Risk Notes Problem Rectal bleeding (94684031) Rectal bleeding (K62.5) Active confirmed Problem Screening for malignant neoplasm of colon (993914718) Encounter for screening for malignant neoplasm of colon (Z12.11) Active confirmed Problem History of adenomatous polyp of colon (891298239) History of adenomatous polyp of colon (Z86.010) Active confirmed Problem Eosinophilic esophagitis (535711461) Eosinophilic esophagitis (K20.0) Active confirmed Problem Gastrointestinal hemorrhage (47993170) UGI bleed (K92.2) Active confirmed Problem Erosive esophagitis (42249031) Erosive esophagitis (K22.10) Active confirmed Problem Esophageal ring (07121619) Esophageal ring (K22.2) Active confirmed Problem Iron deficiency anemia (37197441) Iron deficiency anemia, unspecified iron deficiency anemia type (D50.9) Active confirmed Problem Dysphagia (90801108) Dysphagia, unspecified type (R13.10) Active confirmed Problem Acute gastric ulcer without hemorrhage, without perforation AND without obstruction (18432957) Esophagogastric ulcer, acute (K25.3) Active confirmed Problem Bleeding ulcer of esophagus (71541935) Esophageal ulcer with bleeding (K22.11) Active confirmed Vital Signs Temperature 98.6 degrees Fahrenheit 2024 Blood pressure diastolic 00 mm Hg 2024 Height 72.5 in 2024 Blood pressure systolic 000 mm Hg 2024 Weight 192 lbs 2024 BMI 25.68 kg/m2 2024 Encounters Encounter Location Date Provider Diagnosis [facility] [address] [place] [phone] 2024 Bowen Trevino Dysphagia, unspecifi ed type R13.10 ; Eosinophilic esophagitis K20.0 ; Esophageal ring K22.2 ; History of adenomatous polyp of colon Z86.010 and Encounter for screening for malignant neoplasm of colon Z12.11 [facility] [address] [place] [phone] 11/17/[address] [facility] [address] [place] [phone] 03/07/2025 Bowen Trevino Assessments Encounter Date Diagnosis [...] Provider Name:Bowen Trevino , 07/09/2025 10:20:00 AM, [address] [place] [address], [id number], Insurance Providers Payer Name Payer Address Payer Phone Subscriber Number Group Number Insured Name Patient Relationship to Insured Coverage Start Date Coverage End Date [facility] [employer] CLAIM[employer] [address] [place] [address] [id number] JAREN GRULLON Self - patient is the insured Medical (General) History Medical History History ICD Code Asthma GERD Eosinophilic esophagitis-thi s was originally diagnosed by Dr. Ethan Schreiber in 2005-he was treated with oral Cromolyn and Flovent without any relief--he has subsequently been treated with oral budesonide with good results Distal esophageal ring at the gastroesop hageal junction as described below Denies [place],DM,CVA,renal disease EGD in 03/2012--this revealed a small [...]
--- OUTSIDE RECORDS SUMMARY | 2025-06-25 06:32 | XMS_ITS | Clinical Summary ---
Author Organization [facility] Address [address] [place] [id number] Phone Care Team Providers Care Outreach Director Name Role Phone Bar King MD Unavailable [phone] Asha Eastman PA-C Unavailable [phone] Unknown, Unknown Primary Care Provider Kd lable [...] (07/25/2021 9:14 AM EST) HDL 40 mg/dL [facility] Comment: Interpretation <40 mg/dL: Low HDL cholesterol (major risk factor for CHD) Greater than or equal to 60 mg/dL: High HDL cholesterol ( negative risk factor for CHD) HDL - cholesterol is affected by a number of factors, e.g. smoking, excerise, hormones, sex and age. CHOLESTEROL 103 0 - 240 mg/dL [facility] TRIGLYCERIDES 73 30 - 160 mg/dL [facility] LDL 48(L) 50 - 129 mg/dL [facility] Comment: LDL levels in terms of risk for coronary heart disease: <100 mg/dL: Optimal 100-129 mg/dL: Near or above optimal 130-159 mg/dL: Borderline high 160-189 mg/dL: High >190 mg/dL: Very High CARDIAC RISK RATIO 2.6(L) 3.4 - 5.0 C [facility] Blood 07/25/2021 9:14 AM EST 07/25/2021 9:17 AM EST Bar King MD LAB BLOOD BKR ORDERABLES Maida l Result Performing Organization Address [facility]/ZIP Co de Phone Number [address] [address] * Hepatitis C antibody, qualitative (07/22/2020 10:24 AM EST) HCV NON-REACTIV E NON-REACTI VE [facility] Blood 07/22/2020 10:2 4 AM EST 07/22/2020 10:27 AM EST Asha Eastman PA-C LAB BLOOD BKR ORDERABLES F inal Result Performing Organization Address [facility] Co de Phone Number [address] [address] from Last 3 Months or Most Recently Relevant to Health Maintenance Insurance [facility] [place] [address] [place] [address] [place] [address] [employer] Care Teams Outreach Director Relationship Specialty Start Date End Date Unknown, Unknown, PCP - General 11/18/23 Bar King MD [address] [place] [address] 7 [place] [address] Historical LMR Provider 06/12/17 Asha Eastman PA-C [address] [place] [address] Hematology 07/10/20 Additional Source Comments The information contained in this document represents components of the legal health record. It is not the complete legal health record.[facility]
[2025-06-25 06:43] LABS: MANUAL DIFF FLAG NO
[2025-06-25 07:14] LABS: Hematocrit 45.6 % (42.0-52.0); Hemoglobin 14.4 g/dl (14.0-18.0); Imm Gran Abs Auto 0.01 X10*3/uL (0.00-0.03); Imm Gran Pct Auto 0.3 % (0.0-0.4); Lymphocytes Absolute Auto 0.6 X10*3/uL (1.2-4.9); Mean Corpuscular HGB Conc 31.6 g/dl (31.0-36.0); Mean Corpuscular Hemoglobin 26.7 pg (27.0-33.0); Mean Corpuscular Volume 84.6 fL (80.0-98.0); NRBC Abs Auto 0.000 X10*3/uL (0.0-0.012); NRBC Pct Auto 0.0 /100WBC (0.0-0.2); Platelet Count 276 X10*3/uL (160-400); Red Blood Count 5.39 X10*6/uL (4.60-5.80); Reticulocytes Absolute 0.074 X10*6/uL (0.026-0.095); White Blood Count 3.1 X10*3/uL (4.8-10.8)
[2025-06-25 07:44] LABS: Appearance Urine Clear; Glucose Urine UA Negative (Negative); PH 5.5 (5.0-9.0); Specific Gravity - Urine 1.025 (1.005-1.025)
[2025-06-25 07:44] LABS: Alanine Aminotransferase 44 U/L (0-40); Albumin Level 4.4 g/dL (3.5-5.0); Alkaline Phosphatase 54 U/L (39-117); Anion Gap 11 (12-20); Aspartate Amino Transferase 35 U/L (5-37); Blood Urea Nitrogen 13 mg/dL (9-16); Calcium 9.6 mg/dL (8.4-10.2); Carbon Dioxide 25 mmol/L (22-29); Chloride 110 mmol/L (96-108); Cholesterol 94 mg/dL (<200); Estimated Glomerular Filt Rate > 60; HDL Cholesterol 43 mg/dL (>40); Iron 59 mcg/dL (45-160); Magnesium 2.1 mg/dL (1.6-2.6); Percent Iron Saturation 19 % (15-50); Potassium 4.2 mmol/L (3.3-5.1); Sodium 142 mmol/L (135-145); Total Iron Binding Capacity 311 mcg/dL (228-428); Total Protein 7.8 g/dL (6.5-8.0); Triglycerides 62 mg/dL (<150); Unsaturated Iron Binding 252 ug/dL
[2025-06-25 08:08] LABS: Ferritin 33 ng/mL (20-250); Free T4 (Free Thyroxine) 0.93 ng/dL (0.71-1.85); Thyroid Stimulating Hormone 1.43 uIU/mL (0.32-4.0)
[2025-06-25 08:14] LABS: Folate 12.8 ng/mL (> or = 4.0); Vitamin B12 478 pg/mL (200-900)
== END 2025-06-25 06:30 | disposition home or self-care (01) ==
LOC: HO.LAB 06:29
PROVIDERS: PCP Internal Medicine; Visit Provider Internal Medicine
DX: I25.10 Atherosclerotic heart disease of native coronary artery without angina pectoris (principal); K21.00 Gastro-esophageal reflux disease with esophagitis, without bleeding; E78.00 Pure hypercholesterolemia, unspecified; R73.01 Impaired fasting glucose; Z12.5 Encounter for screening for malignant neoplasm of prostate
CPT/HCPCS: 36415; 80053; 80061; 81001; 82607; 82728; 82746; 83036; 83540; 83735; 84153; 84439; 84443; 85025; 85045

== ENCOUNTER 2025-07-06 13:50 | Outpatient (AMB) | payer BC, SELFPAY ==
[2025-07-06 13:56] VITALS: BP 122/80; PULSE 101; TEMP 37.1; O2SAT 98; BMI 27.7
--- NOTE | 2025-07-06 13:56 | MHC.PC.OV ---
Vital Signs 07/06/25 13:56 Height 5 ft 10 in Weight 193 lb BMI 27.7 BP 122/80 Blood Pressure Location Lt brachial Position Sitting Pulse 101 H Pulse Source Pulse Oximeter Temp 98.7 F Temp Source Oral Pulse Oximetry (%) 98 Oxygen Delivery Method Room Air Intake Visit Reasons: Cough Allergies shellfish Allergy (Severe, Uncoded 07/06/25 13:56) Vomiting flu shot Adverse Reaction (Intermediate, Uncoded 07/06/25 13:56) shellfish allergy Medication List - Last Reconciled 07/06/25 by Wai Hollis MD albuterol sulfate 90 mcg/actuation 2 puffs inhalation Q6H PRN aspirin 81 mg PO DAILY atorvastatin 80 mg PO DAILY azithromycin (Zithromax) For 250 mg dose pack: take 500 mg today (day 1), then 250 mg for 4 days (days 2-5) PO benzonatate 200 mg PO BID-TID PRN budesonide DR-ER 3 mg PO DAILY dzyyxbcfar-rwqxqllx-pykslmhhjd 160-9-4.8 mcg/actuation (Breztri Aerosphere) 2 inhalations inhalation BID 30 days cyclobenzaprine 5 mg PO TID PRN ezetimibe 10 mg PO DAILY metoprolol succinate ER 25 mg PO DAILY multivitamin (One-A-Day Essential tablet) 1 tab PO DAILY nitroglycerin 0.4 mg sublingual Q5M PRN omeprazole 20 mg PO BID trazodone 50 mg PO DAILY Tobacco use date assessed: 12/12/24 Dental Screening Dental Screen Date: 12/12/24 HPI Cough HPI Details 1 week fever, PFSH Medical History (Updated 07/06/25 @ 14:10 by Wai Hollis MD) Blood D-dimer assay positive Abnormal nuclear stress test Mitral valve prolapse Left bundle branch block Atypical chest pain Fracture of knee region Concussion Hx of upper gastrointestinal hemorrhage Elevated cholesterol GERD (gastroesophageal reflux disease) Anemia Asthma Myocardial infarction CAD (coronary artery disease) Surgical History (Updated 01/10/25 @ 07:56 by Brenda Ko) History of colonoscopy (~07/24/20) Hx of heart artery stent History of esophagogastroduodenoscopy (EGD) Family History (Updated 06/04/25 @ 08:57 by Wai Hollis MD) Mother No problems noted. Father Diabetes Sister No problems noted. Brother Throat cancer Cardiac arrest Son Pacemaker Maternal Grandfather Cardiac arrest Maternal Grandmother Cardiac arrest Social History Housing: House Alcohol intake: current Alcohol intake frequency: a few times a month Alcohol type: beer Comment: 2-3 x a week 2-3 beers Patient Tobacco Use Status: Never used Tobacco Tobacco use type: Cigarette e-Cigarette/Vaping Use: Never Used Second Hand Smoke Exposure: No service: No Current occupational status: employed Cognitive needs: No Hearing needs: No Vision needs: Yes (Glasses) Questionnaire Thrive Questionnaire Date Thrive assessed: 05/28/25 I am a: Patient What is your living situation today?: I have a steady place to live Within the past 12 months, did the food you bought not last and you didn't have the money to get more?: Never true Within the past 12 months, did you worry whether your food would run out before you got money to buy more?: Never true Do you have trouble paying for medicines?: No Do you have trouble getting transportation to medical appointments?: No Do you have trouble paying your heating and electricity bill?: No Do you have trouble taking care of your child, family member or friend?: No Do you have trouble with day-to-day activities such as bathing, preparing meals, shopping, managing finances, etc.?: No Are you currently unemployed and looking for a job?: No Are you interested in more education?: Yes Please select the resources that you would like help with: None Currently or been in a relationship where the following occur: No concerns reported THRIVE Score: 0 JAEL-7 AMB Questionnaire JAEL-7 Date JAEL - 7 assessed: 09/05/24 Source: Developed by Drs. Bowen Jurado, Cyndie Lester, Imtiaz Silva and colleagues, with an educational deep from [employer]. Physical exam (Primary Care) Vital Signs: Last Vital Signs Temp 98.7 F 07/06/25 13:56 Pulse 101 H 07/06/25 13:56 BP 122/80 07/06/25 13:56 Pulse Ox 98 07/06/25 13:56 Oxygen Delivery Method Room Air 07/06/25 13:56 BMI result Body Mass Index 27.7 Tobacco/Smoking Status: Tobacco use Status Tobacco use date assessed 12/12/24 07/06/25 14:00 Patient Tobacco Use Status Never used Tobacco 07/06/25 14:00 Tobacco use type Cigarette 07/06/25 14:00 e-Cigarette/Vaping Use Never Used 07/06/25 14:00 Thrive Assessment: Date of Thrive Assessment Date Thrive assessed 05/28/25 07/06/25 14:00 Currently or been in a relationship where the following occur: No concerns reported Const General: alert; No acute distress Eyes Conjunctivae: conjunctivae normal Resp Other: No wheezing noted although rhonchi heard more on the left lung field done right Cardio Rate: regular rate Rhythm: regular rhythm GI Inspection: Yes normal to inspection Extrem General: Yes normal to inspection and No edema Coding Level of Care Code Est Pt Level 3 (73595) Diagnoses Moderate persistent asthma without complication J45.40 Asthma complication type: uncomplicated Asthma persistence: persistent Asthma severity: moderate Cough R05.9 Acute asthmatic bronchitis J45.909 Assessment & Plan Assessment & Plan (1) Asthma: Comment: Moderate persistent Code(s): J45.909 - Unspecified asthma, uncomplicated Category: Medical Qualifiers: Asthma complication type: uncomplicated Asthma persistence: persistent Asthma severity: moderate Qualified Code(s): J45.40 - Moderate persistent asthma, uncomplicated Plan: Patient on albuterol inhaler with Breztri (2) Cough: Code(s): R05.9 - Cough, unspecified Category: Medical (3) Acute asthmatic bronchitis: Code(s): J45.909 - Unspecified asthma, uncomplicated Category: Medical Plan History of Present Illness The patient is a 54-year-old male presenting with a cough. The cough began approximately one week ago and is worse at night. He reports shortness of breath from coughing fits but denies producing any sputum. Use of his inhaler offers some temporary relief. The patient has a history of coronary artery disease, asthma, eosinophilic esophagitis with esophageal stricture, and bronchitis. He was previously diagnosed with influenza in August. His current medications include an Albuterol inhaler and Breztri. His colonoscopy was up to date in 2019. An endoscopy is scheduled for July 09. Blood work from June 25 showed mild leukopenia, no anemia, normal electrolytes, renal function, blood sugar, and an LDL of 39. Folic acid, B12, and thyroid levels were within normal limits, while liver function tests were mildly elevated, which is a chronic finding. Health Maintenance - Colonoscopy completed in 2019, results up to date. - Endoscopy is scheduled for July 09. - Lab work from June 25 showed mild leukopenia, normal electrolytes, renal function, blood sugar, and an LDL of 39. Social History - Employment: Patient will be off from work until Wednesday. - Nutrition/Hydration: Patient reports trying to drink enough water and notes his urine is clear. Review of Systems - Respiratory: Reports a cough for one week, which is worse at night. - Reports dyspnea secondary to severe coughing. - Denies sputum production. - Constitutional: Denies fever. Physical Exam - Respiratory: Small crackles noted on auscultation of the left lung. - No significant wheezing was heard on auscultation. Results - Lab results from June 25, 2025: Findings included mild leukopenia with no anemia, normal electrolytes, renal function, blood sugar, folic acid, B12, and thyroid levels. - Lipid Panel: LDL was 39. - Liver Function Tests: Mildly elevated, which is a chronic finding. - Past Tests: Patient tested positive for influenza in August. - Colonoscopy was up to date in 2019. Plan Patient was informed and verbally consented to the use of an ambient scribe for clinic note documentation during this visit. 1. Acute Bronchitis The patient presents with a one-week history of cough and crackles auscultated on the left side, consistent with acute bronchitis, possibly as an exacerbation of his underlying asthma. Prescribed Zithromax (azithromycin), with instructions to take two tablets on the first day, followed by one tablet daily for the next four days. Prescribed Tessalon Perles (benzonatate) to be taken as needed for cough suppression. Based on the patient's report of prior success with steroids and his underlying lung disease, a tapering course of oral steroids was also prescribed. The steroid regimen is four tablets daily for two days, then three tablets daily for two days, then two tablets daily for two days, and finally one tablet daily for two days, to be taken with food. Advised the patient to maintain adequate fluid intake and continue using his home inhalers. Prescriptions were sent to the [facility] on [facility] in [place]. 2. Asthma The patient has a known history of asthma and uses Breztri and an albuterol inhaler. The current treatment plan for his acute bronchitis, including oral steroids, also addresses a potential asthma exacerbation component. He was advised to continue his current inhaler regimen. 3. Eosinophilic Esophagitis The patient carries a diagnosis of eosinophilic esophagitis. He is scheduled for a follow-up endoscopy on July 09. Discussion Notes I informed the patient that my examination revealed some crackling on his left side, which suggests bronchitis. We discussed treatment options, and I recommended Tessalon Perles to help with the cough, a medication he has used before. I prescribed a Z-Joshua, as this has been effective for him in the past. Although I did not hear significant wheezing, I agreed to also prescribe a tapering course of oral steroids at the patient's request, given his history of a good response and the fact that his underlying lung problems can make infections more severe. I reviewed the specific dosing instructions for both the Zithromax and the steroids, emphasizing that the steroids should be taken with food. I advised him to maintain good hydration, and he confirmed he is drinking enough fluids. The prescriptions were sent to his preferred pharmacy, [facility] on [facility], as confirmed with the patient. Patient Instructions - Take the Zithromax antibiotic as directed: two tablets on the first day, then one tablet each day for the next four days. - Take the oral steroids with food as follows: four tablets for days 1 and 2, then three tablets for days 3 and 4, then two tablets for days 5 and 6, and finally one tablet for days 7 and 8. - You may take Tessalon Perles as needed to help control your cough. - Continue to drink plenty of fluids, such as water. - Rest at home and do not return to work until Wednesday. - The prescriptions have been sent to the [facility] pharmacy on [facility]. Medications: New prednisone 4 tabs QD x 2 days then 3 tabs QD x 2 days then 2 tabs Qd x 2 days then 1 tab QD x 2 days PO daily; 20 tabs 0RF J45.909 - Unspecified asthma, uncomplicated benzonatate 200 mg PO BID-TID PRN 30 caps 0RF cough J45.909 - Unspecified asthma, uncomplicated azithromycin (Zithromax) For 250 mg dose pack: take 500 mg today (day 1), then 250 mg for 4 days (days 2-5) PO 6 tabs 0RF J45.909 - Unspecified asthma, uncomplicated
--- OUTSIDE RECORDS SUMMARY | 2025-07-06 20:13 | XMS_ITS | Clinical Summary ---
Author Organization [facility] Address [address] [place] [address] Phone Care Team Providers Care Insurance Business Analyst Name Role Phone Bar King MD Unavailable [phone] Asha Eastman PA-C Unavailable [phone] Unknown, Unknown Primary Care Provider Kd lable [...] you interested in more education? Not on oy e 07/28/2023 Are you concerned about learning? [...] exists Adult Td,Tdap Booster 09/29/2026 09/29/2016, 007 IPV VACCINES Completed 09/22/1976, 01/22, 01/05/1972, Additional history exists HEPATITIS C SCREENING Completed 07/22/2020, 020 HIV [...] (07/25/2021 9:14 AM EST) HDL 40 mg/dL [facility] Comment: Interpretation <40 mg/dL: Low HDL cholesterol (major risk factor for CHD) Greater than or equal to 60 mg/dL: High HDL cholesterol ( negative risk factor for CHD) HDL - cholesterol is affected by a number of factors, e.g. smoking, excerise, hormones, sex and age. CHOLESTEROL 103 0 - 240 mg/dL [facility] TRIGLYCERIDES 73 30 - 160 mg/dL [facility] LDL 48(L) 50 - 129 mg/dL [facility] Comment: LDL levels in terms of risk for coronary heart disease: <100 mg/dL: Optimal 100-129 mg/dL: Near or above optimal 130-159 mg/dL: Borderline high 160-189 mg/dL: High >190 mg/dL: Very High CARDIAC RISK RATIO 2.6(L) 3.4 - 5.0 C [facility] Blood 07/25/2021 9:14 AM EST 07/25/2021 9:17 AM EST Bar King MD LAB BLOOD BKR ORDERABLES Maida l Result [address] [address] * Hepatitis C antibody, qualitative (07/22/2020 10:24 AM EST) HCV NON-REACTIV E NON-REACTI VE [facility] Blood 07/22/2020 10:2 4 AM EST 07/22/2020 10:27 AM EST us sAha Eastman PA-C LAB BLOOD BKR ORDERABLES F inal Result Performing Organization Address [facility] Co de Phone Number [address] [address] from Last 3 Months or Most Recently Relevant to Health Maintenance Insurance [facility] [address] [place] [address] [employer] Care Teams Insurance Business Analyst Relationship Specialty Start Date End Date Unknown, Unknown, PCP - General 11/18/23 Bar King MD [address] [place] [address] 7 [place] [address] [email or web address] Historical LMR Provider 06/12/17 Asha Eastman PA-C [address] [place] [phone] [email or web address] Hematology 07/10/20 Additional Source Comments The information contained in this document represents components of the legal health record. It is not the complete legal health record.[facility]
== END 2025-07-06 15:21 | disposition home or self-care (01) ==
LOC: HO.HMCH 13:51
PROVIDERS: PCP Internal Medicine; Visit Provider Internal Medicine
DX: J45.40 Moderate persistent asthma, uncomplicated (principal); R05.9 Cough, unspecified; J45.909 Unspecified asthma, uncomplicated

== ENCOUNTER → 2025-07-17 07:46 | Outpatient (REF) | payer BC, SELFPAY ==
--- NOTE | 2025-07-17 07:48 | CA_ITS ---
Transthoracic Echocardiogram Patient (Last, First, Middle): Jaren Mcneill, Gender: M Date of : 1970 Age: 54 Procedure Date: 07/17/2025 Procedure Type: Transthoracic Echocardiogram Location: OP Height: 177.8 cm Weight: 87.54 kg BSA: 2.06 m2 Heart Rate: bpm BP: 122 / 80 mmHg Double End Chucking Machine Operator: [email or web address] Referring MD: Olivier Enamorado MD Symptoms: I34.1 - Nonrheumatic mitral (valve) prolapse Study Quality: Adequate ECG Rhythm: Sinus Conclusions: - The left ventricular systolic function is normal. The calculated ejection fraction is 58% by biplane method. - There is moderate posterior mitral leaflet prolapse. There is mild to moderate mitral valve regurgitation. Findings Left Ventricle Normal left ventricular cavity size. There is mildly increased left ventricular wall thickness. The left ventricular systolic function is normal. The calculated ejection fraction is 58% by biplane method. There is no evidence of regional wall motion abnormalities. Diastolic function is normal for age. Right Ventricle Normal right ventricular cavity size and systolic function. Atria Both atria are normal in size. Aortic Valve There is a normal trileaflet aortic valve. There is no aortic valve stenosis. There is no aortic valve regurgitation. Mitral Valve There is moderate posterior mitral leaflet prolapse. There is mild to moderate mitral valve regurgitation. The mitral regurgitation jet is a wall impinging jet. There is no mitral valve stenosis. Pulmonic Valve The pulmonic valve is likely normal. Tricuspid Valve There is mild tricuspid valve regurgitation. There is no evidence of pulmonary hypertension. Great Vessels The asc aorta is normal in size. Venous The inferior vena cava is normal in size and collapses greater than 50% with inspiration. Pericardium/Pleural There is no evidence of pericardial effusion. Prior Study Comparison Changes noted compared to prior study dated: 08/25/2024. Slight progression of mitral regurgitation. Measurements 2D Linear Measurements IVSd: 1.20 0.6-0.9/0.6-1.0 cm LVIDd: 4.77 3.9-5.3/4.2-5.9 cm LVIDd Index: 2.32 2.4-3.2/2.2-3.1 cm/m2 LVIDs: 2.86 2.0-3.6 cm LVPWd: 1.15 0.7-1.1 cm LA Diam: 4.30 2.7-3.8/3.0-4.0 cm LAIDs Index: 2.09 1.5-2.3 cm/m2 LV Mass: 262.51 67-162/88-224 g LV Mass Index: 127.43 43-95/49-115 g/m2 LVOT Diam: 2.00 3.0+(-)1.3 cm 2D Systolic Function EF 4C: 57.10 >55% EF 2C: 60.30 >55% EF BiP: 58.20 >55% Mitral Valve MV Pk E: 0.93 MV PK A: 0.84 MV Decel Time: 211.00 E/A: 1.10 E'Lateral: 11.40 E'Medial: 7.29 E/E' Med: 12.80 E/E' Lat: 8.20 PHT: 62.00 MVA PHT: 3.55 Decel Kingman: 4.42 MR Vol - PW Dopp: 25.65 MR VTI: 1.71 MR ERO: 15.00 MR Alias Kevon: 0.34 MR RAD: 0.60 Aortic Valve AoV Pk Kevon: 1.14 AoV Mn Kevon: 0.84 AoV VTI: 0.25 AoV Pk Grad: 5.00 Aov Mn Grad: 3.00 GILBERT Cont.VTI: 2.63 LVOT LVOT Pk Kevon: 1.01 LVOT Mn Kevon: 0.77 LVOT VTI: 0.21 LVOT Pk Grad: 4.00 LVOT Mn Grad: 3.00 LVOT Diam: 2.00 LVOT Area: 3.14 Diastolic Function MV Pk E: 0.93 MV Pk A: 0.84 E/A: 1.10 E'Medial: 7.29 E/E' Med: 12.80 E' Laterial: 11.40 E/E' Lat: 8.20 Right Ventricle TAPSE (mm): 25.40 TVS' Kevon: 10.60 Tricuspid Valve TR Pk Kevon: 2.32 TR Pk Grad: 22.00 RA Press: 3.00 RVSP: 25.00 Great Vessels Aorta Sinus of Valsalva: 3.31 2.0-3.[address] Ridge: 2.33 1.7-3.4 cm Ao Asc: 2.80 2.1-3.4 cm Pulmonary Veins Pulm Vein S/D 0.90 Updated in Other Vendor System with Status of Final Nixon Jerry MD electronically signed on 07/17/2025 10:29:39 AM with status of Final
--- NOTE | 2025-07-17 07:48 | CA_ITS ---
Acquisition Time: 2025-07-17 09:24:31 Total Exercise Time: 00:02:00 Test Indications: SOB Medications: SEE H&P Protocol: LEXISCAN Max HR: 116 BPM 69% of Pred: 167 BPM Max BP: 128/60 mmHG Max Work Load: 1.0 METS Pharmacological stress test with Lexiscan while pt marches in his chair, with reports of SOB and lightheadedness, with isolated PVCs, with normotensive response to injection. Nondiagnostic EKG for ischemia. In recovery, pt treated with IVP Aminophylline 75 mg to reverse Lexiscan after which pt feeling back to baseline. Nuclear images pending. Test reviewed with Dr. Rosas. Referred By: Olivier Enamorado Electronically Signed By: Isaiah Stein
--- OUTSIDE RECORDS SUMMARY | 2025-07-17 07:51 | XMS_ITS | Clinical Summary ---
Author Organization [facility] Address [address] [place] [id number] Phone Care Team Providers Care Appraiser Irrigation Tax Name Role Phone Bar King MD Unavailable [phone] Asha Eastman PA-C Unavailable [phone] Unknown, Unknown Primary Care Provider Kd lable [...] (07/25/2021 9:14 AM EST) HDL 40 mg/dL [facility] Comment: Interpretation <40 mg/dL: Low HDL cholesterol (major risk factor for CHD) Greater than or equal to 60 mg/dL: High HDL cholesterol ( negative risk factor for CHD) HDL - cholesterol is affected by a number of factors, e.g. smoking, excerise, hormones, sex and age. CHOLESTEROL 103 0 - 240 mg/dL [facility] TRIGLYCERIDES 73 30 - 160 mg/dL [facility] LDL 48(L) 50 - 129 mg/dL [facility] Comment: LDL levels in terms of risk for coronary heart disease: <100 mg/dL: Optimal 100-129 mg/dL: Near or above optimal 130-159 mg/dL: Borderline high 160-189 mg/dL: High >190 mg/dL: Very High CARDIAC RISK RATIO 2.6(L) 3.4 - 5.0 C [facility] Blood 07/25/2021 9:14 AM EST 07/25/2021 9:17 AM EST Bar King MD LAB BLOOD BKR ORDERABLES Maida l Result Performing Organization Address [facility]/ZIP Co de Phone Number [address] [address] * Hepatitis C antibody, qualitative (07/22/2020 10:24 AM EST) HCV NON-REACTIV E NON-REACTI VE [facility] Blood 07/22/2020 10:2 4 AM EST 07/22/2020 10:27 AM EST Asha Eastman PA-C LAB BLOOD BKR ORDERABLES F inal Result Performing Organization Address [facility] Co de Phone Number [address] [address] from Last 3 Months or Most Recently Relevant to Health Maintenance Insurance [facility] [place] [address] [place] [address] [place] [address] [employer] Care Teams Appraiser Irrigation Tax Relationship Specialty Start Date End Date Unknown, Unknown, PCP - General 11/18/23 Bar King MD [address] [place] [address] 7 [place] [address] Historical LMR Provider 06/12/17 Asha Eastman PA-C [address] [place] [address] Hematology 07/10/20 Additional Source Comments The information contained in this document represents components of the legal health record. It is not the complete legal health record.[facility]
== END ==
LOC: HO.CARD 07:46
PROVIDERS: PCP Internal Medicine; Visit Provider Internal Medicine Cardiovascular Disease
DX: R06.09 Other forms of dyspnea (principal); I25.10 Atherosclerotic heart disease of native coronary artery without angina pectoris; I44.7 Left bundle-branch block, unspecified; I34.1 Nonrheumatic mitral (valve) prolapse; R06.02 Shortness of breath
CPT/HCPCS: 78452; 93017; 93306; A9500; J0280; J2785

== ENCOUNTER → 2025-07-17 07:48 | Outpatient (BNV) | payer BC, SELFPAY | PROVIDERS: PCP Internal Medicine; Visit Provider Internal Medicine | DX: I34.0 Nonrheumatic mitral (valve) insufficiency (principal); I49.3 Ventricular premature depolarization; R06.02 Shortness of breath; R42 Dizziness and giddiness | CPT/HCPCS: 93016; 93018; 93306 ==